=== PATIENT | female | born 1955 | race Two or more races ===

== ENCOUNTER 2017-07-28 11:17 | Emergency (ER) | payer OTHER ==
[~2017-07-28] VITALS: Ht 162.6 cm; Wt 81.6 kg
[2017-07-28 12:04] VITALS: BP 167/59
[2017-07-28] MEDS ORDERED: KETOROLAC TROMETH 60MG/2ML VIAL IM ONE (12:15)
== END 2017-07-28 12:56 | disposition home or self-care (01) ==
LOC: ER 11:17
DX: G89.29 Other chronic pain (principal); M54.5 Low back pain; E11.9 Type 2 diabetes mellitus without complications
CPT/HCPCS: 93005; 96372; 99283; J1885

== ENCOUNTER 2017-07-31 08:49 | Emergency (ER) | payer OTHER ==
[~2017-07-31] VITALS: Ht 162.6 cm; Wt 81.6 kg
[2017-07-31 09:00] VITALS: BP 151/63
[2017-07-31] MEDS ORDERED: KETOROLAC TROMETH 60MG/2ML VIAL IM ONE (09:45)
== END 2017-07-31 10:38 | disposition home or self-care (01) ==
LOC: ER 08:49
DX: M54.41 Lumbago with sciatica, right side (principal); E11.9 Type 2 diabetes mellitus without complications; E78.5 Hyperlipidemia, unspecified
CPT/HCPCS: 96372; 99283; J1885

== ENCOUNTER 2018-04-08 09:00 | Emergency (ER) | payer OTHER ==
[~2018-04-08] VITALS: Ht 162.6 cm; Wt 81.6 kg
[2018-04-08 09:10] VITALS: BP 155/80
== END 2018-04-08 10:40 | disposition home or self-care (01) ==
LOC: ER 09:00
DX: R21 Rash and other nonspecific skin eruption (principal); E11.9 Type 2 diabetes mellitus without complications; E78.5 Hyperlipidemia, unspecified; M54.5 Low back pain; G89.29 Other chronic pain
CPT/HCPCS: 82962; 93005

== ENCOUNTER 2018-05-06 08:32 | Emergency (ER) | payer OTHER ==
[~2018-05-06] VITALS: Ht 162.6 cm; Wt 85.3 kg
[2018-05-06 08:44] VITALS: BP 166/70
[2018-05-06] MEDS ORDERED: KETOROLAC TROMETH 60MG/2ML VIAL IM ONE (10:45)
== END 2018-05-06 10:53 | disposition home or self-care (01) ==
LOC: ER 08:32
DX: M54.31 Sciatica, right side (principal); E11.9 Type 2 diabetes mellitus without complications; E78.5 Hyperlipidemia, unspecified
CPT/HCPCS: 96372; 99283; J1885

== ENCOUNTER 2018-08-31 10:31 | Emergency (ER) | payer OTHER ==
[~2018-08-31] VITALS: Ht 162.6 cm; Wt 86.2 kg
[2018-08-31 11:00] VITALS: BP 152/70
[2018-08-31] MEDS ORDERED: methylPREDNISolone SOD SUCC 125 MG/2 ML VL IM ONE (11:00)
[2018-08-31] MEDS ORDERED: KETOROLAC TROMETH 60MG/2ML VIAL IM ONE (11:00)
== END 2018-08-31 11:40 | disposition home or self-care (01) ==
LOC: ER 10:34
DX: M54.16 Radiculopathy, lumbar region (principal); E11.9 Type 2 diabetes mellitus without complications; E78.5 Hyperlipidemia, unspecified
CPT/HCPCS: 96372; 99283; J1885; J2930

== ENCOUNTER 2018-09-05 08:43 | Inpatient (IN) | payer OTHER | END 2018-09-07 12:15 | disposition home or self-care (01) | LOC: ER 08:43 → TELE 08:44 → TELE-WESTW 15:17 | DX: R07.89 Other chest pain (principal); E11.65 Type 2 diabetes mellitus with hyperglycemia; E78.5 Hyperlipidemia, unspecified; E66.9 Obesity, unspecified ==

== ENCOUNTER 2019-03-08 10:38 | Emergency (ER) | payer OTHER ==
[~2019-03-08] VITALS: Ht 162.6 cm; Wt 86.2 kg
[~2019-03-08 10:38] MED LIST: ASPI81CH4 PO; ATOR20TA PO; CHOL20007 PO; FEXO-42 PO; GABA100C9 PO; GEMF600T PO; IBUP800T24 PO; OMEG100078 PO; OMEP20TA PO; [UNRECOGNIZED DRUG - CODE] PO
[2019-03-08 11:16] LABS: Urine WBC None Seen /hpf (0 - 5)
[2019-03-08 11:29] LABS: Basophils # (auto) 0 uL; Basophils % (auto) 0.9 % (0.0-2.0); Eosinophils # (auto) 0.2 uL; Eosinophils % (auto) 3.6 % (0.0-7.0); Hematocrit 41.1 % (36.0-46.0); Hemoglobin 13.7 g/dL (12.2-16.2); Lymphocytes # (auto) 1.5 uL; Lymphocytes % (auto) 28.1 % (10.0-50.0); Mean Corpuscular Hemoglobin 29.7 pg (28.0-32.0); Mean Corpuscular Hgb Conc. 33.3 g/dL (32.0-36.0); Mean Corpuscular Volume 89.1 fL (80.0-100.0); Monocytes # (auto) 0.4 uL; Monocytes % (auto) 7.9 % (0.0-12.0); Neutrophils # (auto) 3.2 uL; Neutrophils % (auto) 59.5 % (37.0-80.0); Platelet Count (auto) 268 10^3/uL (140-450); Red Blood Cells 4.61 10^6/uL (4.0-5.20); Red Cell Distribution Width 14.3 % (11.8-14.3); White Blood Cell 5.4 10^3/uL (4.4-10.8)
[2019-03-08 11:34] LABS: Urine Bacteria NONE SEEN /hpf (None Seen); Urine Blood TRACE /uL (Negative); Urine Specific Gravity 1.007 (1.001-1.035)
[2019-03-08 11:47] LABS: Albumin 3.7 g/dL (3.4-5.0); Anion Gap 2 (5-15); Blood Urea Nitrogen 13 mg/dL (7-18); Calcium 8.8 mg/dL (8.5-10.1); Carbon Dioxide 31 mmol/L (21-32); Chloride 106 mmol/L (98-107); Glucose 203 mg/dL (74-106); Potassium 4.2 mmol/L (3.5-5.1); Sodium 139 mmol/L (136-145)
[2019-03-08 11:53] LABS: Alanine Aminotransferase 26 U/L (13-56); Alkaline Phosphatase 126 U/L (45-117); Aspartate Aminotransferase 16 U/L (15-37); BUN/Creatinine Ratio 17.6; Bilirubin, Total 0.3 mg/dL (0.2-1.0); GFR African American 103 mL/min; GFR Non-African American 85 mL/min
[2019-03-08] MEDS ORDERED: KETOROLAC TROMETH 60MG/2ML VIAL IM ONE (13:00)
[2019-03-08 15:10] VITALS: BP 165/72
== END 2019-03-08 15:10 | disposition home or self-care (01) ==
LOC: ER 10:38
DX: S39.012A Strain of muscle, fascia and tendon of lower back, initial encounter (principal); E11.9 Type 2 diabetes mellitus without complications; I10 Essential (primary) hypertension; X50.9XXA Other and unspecified overexertion or strenuous movements or postures, initial encounter; Y93.89 Activity, other specified; Y99.8 Other external cause status; Y92.89 Other specified places as the place of occurrence of the external cause
CPT/HCPCS: 36415; 74176; 80053; 81001; 84484; 85025; 93005; 96372; 99284; J1885

== ENCOUNTER 2019-07-17 15:02 | Inpatient (IN) | payer MEDICAID, OTHER ==
[~2019-07-17] VITALS: Ht 162.6 cm; Wt 83.5 kg
[2019-07-17] MEDS ORDERED: ONDANSETRON HCL 4 MG/2 ML VIAL IV ONE (15:30)
[2019-07-17] MEDS ORDERED: MORPHINE SULFATE 4 MG/ML SYR/VIAL IV ONE (15:30)
[2019-07-17] MEDS ORDERED: ASPirin 81 mg TAB PO ONE (15:30)
[2019-07-17 15:40] LABS: Basophils # (auto) 0 10 ^3/uL (0-0.2); Basophils % (auto) 0.5 % (0.0-2.0); Eosinophils # (auto) 0 10 ^3/uL (0-0.8); Eosinophils % (auto) 0.5 % (0.0-7.0); Hematocrit 42.1 % (36.0-46.0); Hemoglobin 13.8 g/dL (12.2-16.2); Lymphocytes # (auto) 1.2 10 ^3/uL (0.4-5.4); Lymphocytes % (auto) 12.5 % (10.0-50.0); Mean Corpuscular Hemoglobin 29.8 pg (28.0-32.0); Mean Corpuscular Hgb Conc. 32.8 g/dL (32.0-36.0); Mean Corpuscular Volume 90.9 fL (80.0-100.0); Monocytes # (auto) 0.7 10 ^3/uL (0-1.3); Monocytes % (auto) 7.5 % (0.0-12.0); Neutrophils # (auto) 7.7 10 ^3/uL (1.6-8.6); Nucleated Red Blood Cells % 0.1 %; Platelet Count (auto) 302 10^3/uL (140-450); Red Blood Cells 4.63 10^6/uL (4.0-5.20); White Blood Cell 9.8 10^3/uL (4.4-10.8)
[2019-07-17 16:00] LABS: Albumin 3.3 g/dL (3.4-5.0); Anion Gap 8 (5-15); Blood Urea Nitrogen 10 mg/dL (7-18); Calcium 7.7 mg/dL (8.5-10.1); Carbon Dioxide 22 mmol/L (21-32); Chloride 110 mmol/L (98-107); Glucose 127 mg/dL (74-106); Magnesium 1.9 mg/dL (1.6-2.6); Potassium 3.5 mmol/L (3.5-5.1); Sodium 140 mmol/L (136-145)
[2019-07-17] MEDS ORDERED: NITROGLYCERIN 0.4 MG SL TAB SL PRN ×2 (16:00)
[2019-07-17] MEDS ORDERED: DEXTROSE (50%) 50ML SYRG IV PRN (16:00)
[2019-07-17] MEDS ORDERED: LORazepam 0.5 MG TAB PO PRN (16:00)
[2019-07-17] MEDS ORDERED: ONDANSETRON HCL 4 MG/2 ML VIAL IV PRN (16:00)
[2019-07-17] MEDS ORDERED: METOPROLOL SUCCINATE XL 50 MG TAB PO ONE (16:00)
[2019-07-17] MEDS ORDERED: MORPHINE SULF INJ 2 MG/ML SYRINGE 1ML IV PRN (16:00)
[2019-07-17] MEDS ORDERED: MORPHINE SULFATE 4 MG/ML SYR/VIAL IV PRN (16:00)
[2019-07-17] MEDS ORDERED: ALUM & MAG HYDROX-SIMETH LIQ(MAALOX) 30 ML PO ONE (16:00)
[2019-07-17 16:04] LABS: Alanine Aminotransferase 25 U/L (13-56); Alkaline Phosphatase 113 U/L (45-117); Aspartate Aminotransferase 13 U/L (15-37); BUN/Creatinine Ratio 11.8; Bilirubin, Total 0.2 mg/dL (0.2-1.0); GFR African American 87 mL/min; GFR Non-African American 72 mL/min; Total Protein 7.4 g/dL (6.4-8.2)
[2019-07-17] MEDS: SOD CHL 0.45% 1,000 ML IV SCH (16:37)
[2019-07-17] MEDS: InsuLIN REG 1unit/0.01ml Soln (100units/ml) SC SCH ×2 (17:00→20:52)
[2019-07-17 17:10] VITALS: BP 124/79
--- NOTE | 2019-07-17 17:10 | NUR ---
Telemetry admit from JAIMEE GAMBOA admitted to Telemetry unit after SBAR received. Patient oriented to RANDY SANFORD RN primary RN, unit, room, bed, and unit policies regarding patient care. Patient now on continuous telemetry monitoring, tele box # [id number] and telemetry reading on arrival to unit is sinus 71. Patient denies pain at this time. Patient is on room air, respirations even and unlabored. Reviewed plan of care with patient, patient verbalized understanding. Bed in low and locked position, call light within reach. Will continue to monitor Q1 hour and PRN.
[2019-07-17 17:31] VITALS: BP 124/79
[2019-07-17] MEDS: metFORMIN HYDROCHLORIDE 500 MG TAB PO SCH (18:00)
[2019-07-17] MEDS ORDERED: VITAMINS A & D (TOPICAL) OINT 5GM TOP ONE (18:00)
[2019-07-17] MEDS ORDERED: hydrALAZINE HCL 20 MG/ML VL IV SCH (18:00)
[2019-07-17] MEDS ORDERED: VITAMINS A & D (TOPICAL) OINT 5GM TOP PRN (18:00)
[2019-07-17] MEDS ORDERED: TRIAMCINOLONE ACET0.5% TOPICAL CRE 15GM TOP ONE (18:00)
[2019-07-17] MEDS ORDERED: hydrALAZINE HCL 20 MG/ML VL IV PRN (18:15)
[2019-07-17] MEDS: ACCU-CHEK COMFORT CURVE STRIP VI SCH ×2 (18:54→22:00)
--- NOTE | 2019-07-17 19:27 | NUR ---
Closing Note Report given to manufacturing supervisor 2nd shift RN. No signs or symptoms of distress noted at this time.
[2019-07-17 20:00] VITALS: BP 149/72
[2019-07-17] MEDS: GABAPENTIN 100 MG CAP PO SCH (20:50)
[2019-07-17] MEDS: GEMFIBROZIL 600 MG TAB PO SCH (20:50)
[2019-07-17] MEDS: RANOLAZINE ER 500 MG TAB PO SCH (20:51)
[2019-07-17] MEDS: ATORVASTATIN 20 MG TAB PO SCH (20:52)
[2019-07-17 22:00] VITALS: BP 128/70
[2019-07-17] MEDS ORDERED: MAGNESIUM OXIDE 400 MG TAB PO ONE (22:00)
[2019-07-18 05:00] VITALS: BP 103/63
[2019-07-18] MEDS: SOD CHL 0.45% 1,000 ML IV SCH ×2 (05:20→18:25)
[2019-07-18 06:04] LABS: Basophils # (auto) 0 10 ^3/uL (0-0.2); Basophils % (auto) 0.4 % (0.0-2.0); Eosinophils # (auto) 0.2 10 ^3/uL (0-0.8); Eosinophils % (auto) 2.8 % (0.0-7.0); Hemoglobin 12.9 g/dL (12.2-16.2); Lymphocytes # (auto) 1.7 10 ^3/uL (0.4-5.4); Lymphocytes % (auto) 28.6 % (10.0-50.0); Mean Corpuscular Hemoglobin 30.3 pg (28.0-32.0); Mean Corpuscular Hgb Conc. 33.2 g/dL (32.0-36.0); Mean Corpuscular Volume 91.2 fL (80.0-100.0); Monocytes # (auto) 0.5 10 ^3/uL (0-1.3); Monocytes % (auto) 8.7 % (0.0-12.0); Neutrophils # (auto) 3.5 10 ^3/uL (1.6-8.6); Neutrophils % (auto) 59.5 % (37.0-80.0); Platelet Count (auto) 283 10^3/uL (140-450); Red Blood Cells 4.28 10^6/uL (4.0-5.20); Red Cell Distribution Width 13.8 % (11.8-14.3); White Blood Cell 5.9 10^3/uL (4.4-10.8)
[2019-07-18 06:19] LABS: Albumin 3.2 g/dL (3.4-5.0); Anion Gap 5 (5-15); Blood Urea Nitrogen 12 mg/dL (7-18); Calcium 8.5 mg/dL (8.5-10.1); Carbon Dioxide 29 mmol/L (21-32); Chloride 105 mmol/L (98-107); Glucose 128 mg/dL (74-106); Magnesium 2.8 mg/dL (1.6-2.6); Potassium 4.4 mmol/L (3.5-5.1); Sodium 139 mmol/L (136-145)
[2019-07-18 06:20] LABS: INR 0.98 (0.9-1.15); Partial Thromboplastin Time 27.6 sec (23.64-32.05)
[2019-07-18] MEDS: InsuLIN REG 1unit/0.01ml Soln (100units/ml) SC SCH ×4 (06:23→21:57)
[2019-07-18] MEDS: GABAPENTIN 100 MG CAP PO SCH ×3 (06:23→21:56)
[2019-07-18 06:25] LABS: Alanine Aminotransferase 24 U/L (13-56); Alkaline Phosphatase 104 U/L (45-117); Aspartate Aminotransferase 15 U/L (15-37); BUN/Creatinine Ratio 13.2; Bilirubin, Total 0.5 mg/dL (0.2-1.0); Cholesterol 188 mg/dL (< 200); GFR African American 81 mL/min; GFR Non-African American 67 mL/min; HDL Cholesterol 41 mg/dL (40-59); LDL Cholesterol 126 mg/dL (< 100); Phosphorus 3.4 mg/dL (2.5-4.90); Total Protein 7.2 g/dL (6.4-8.2); Triglycerides 177 mg/dL (< 150)
--- NOTE | 2019-07-18 06:46 | NUR ---
PT RESTED WELL THROUGHOUT THE NIGHT;NO C/O PAIN.
[2019-07-18] MEDS: ACCU-CHEK COMFORT CURVE STRIP VI SCH ×4 (06:48→21:57)
--- NOTE | 2019-07-18 07:25 | NUR ---
Opening Note Received report from hotel night auditor RN. Patient is awake, alert and oriented x4. No signs or symptoms of distress noted at this time. Patient denies pain at this time. Reviewed plan of care with patient, patient verbalized understanding. Bed in low and locked position, call light within reach. Will continue to monitor Q1 hour and PRN.
[2019-07-18 09:00] VITALS: BP 105/61
[2019-07-18] MEDS: METOPROLOL SUCCINATE XL 50 MG TAB PO SCH (10:00)
[2019-07-18] MEDS: DOCUSATE SOD 100 MG CAP PO SCH (10:00)
[2019-07-18] MEDS: ENOXAPARIN SOD 40 MG/0.4 ML SYRINGE SC SCH (10:00)
[2019-07-18] MEDS: LISINOPRIL 10 MG TAB PO SCH (10:00)
[2019-07-18] MEDS: TRIAMCINOLONE ACET0.5% TOPICAL CRE 15GM TOP SCH (10:07)
[2019-07-18] MEDS: RANOLAZINE ER 500 MG TAB PO SCH ×2 (10:22→21:57)
[2019-07-18] MEDS: GEMFIBROZIL 600 MG TAB PO SCH ×2 (10:22→21:56)
[2019-07-18] MEDS: PANTOPRAZOLE 40 MG TAB PO SCH (10:22)
[2019-07-18] MEDS: CHOLECALCIFEROL (VITD3) 1,000IU=25mCg TAB PO SCH (10:23)
[2019-07-18] MEDS: ASPirin 81 mg TAB PO SCH (10:23)
[2019-07-18] MEDS: metFORMIN HYDROCHLORIDE 500 MG TAB PO SCH ×2 (10:23→18:22)
--- NOTE | 2019-07-18 12:05 | NUR ---
Dr. Brandt at bedside No new orders received. Will continue to monitor Q1 hour and PRN.
[2019-07-18 13:00] VITALS: BP 104/58
[2019-07-18 17:00] VITALS: BP 103/57
--- NOTE | 2019-07-18 19:10 | NUR ---
Closing Note Report given to night auditor RN. No signs or symptoms of distress noted at this time.
[2019-07-18] MEDS: ATORVASTATIN 20 MG TAB PO SCH (21:56)
[2019-07-18 22:00] VITALS: BP 117/76
[2019-07-19 05:00] VITALS: BP 106/66
[2019-07-19 05:39] LABS: Calcium 8.9 mg/dL (8.5-10.1); Potassium 4.1 mmol/L (3.5-5.1)
[2019-07-19 05:40] LABS: BUN/Creatinine Ratio 19.8
[2019-07-19] MEDS: GABAPENTIN 100 MG CAP PO SCH ×3 (06:29→21:47)
[2019-07-19] MEDS: InsuLIN REG 1unit/0.01ml Soln (100units/ml) SC SCH ×4 (06:29→21:47)
[2019-07-19] MEDS: ACCU-CHEK COMFORT CURVE STRIP VI SCH ×4 (06:29→21:47)
[2019-07-19] MEDS: SOD CHL 0.45% 1,000 ML IV SCH ×2 (08:00→21:08)
[2019-07-19] MEDS: metFORMIN HYDROCHLORIDE 500 MG TAB PO SCH ×2 (08:01→18:16)
[2019-07-19 09:33] VITALS: BP 97/57
[2019-07-19] MEDS: PANTOPRAZOLE 40 MG TAB PO SCH (09:49)
[2019-07-19] MEDS: GEMFIBROZIL 600 MG TAB PO SCH ×2 (09:49→21:47)
[2019-07-19] MEDS: DOCUSATE SOD 100 MG CAP PO SCH (09:49)
[2019-07-19] MEDS: CHOLECALCIFEROL (VITD3) 1,000IU=25mCg TAB PO SCH (09:49)
[2019-07-19] MEDS: ASPirin 81 mg TAB PO SCH (09:49)
[2019-07-19] MEDS: ENOXAPARIN SOD 40 MG/0.4 ML SYRINGE SC SCH (09:50)
[2019-07-19] MEDS: TRIAMCINOLONE ACET0.5% TOPICAL CRE 15GM TOP SCH (09:54)
[2019-07-19] MEDS: RANOLAZINE ER 500 MG TAB PO SCH ×2 (09:54→21:47)
[2019-07-19] MEDS: LISINOPRIL 10 MG TAB PO SCH (10:00)
[2019-07-19] MEDS: METOPROLOL SUCCINATE XL 50 MG TAB PO SCH (10:00)
--- NOTE | 2019-07-19 11:40 | NUR ---
Dr. Apryl Brandt in to see patient as primary MD. Dr. Syed to evaluate patient for cardiology today.
--- NOTE | 2019-07-19 12:58 | NUR ---
Page placed to Dr. Syed, roadway technician, to see if patient has been cleared for discharge.
[2019-07-19 13:00] VITALS: BP 147/77
--- NOTE | 2019-07-19 13:01 | NUR ---
Return call from Dr. Syed. Dr. Syed states the patient is not cleared for discharge. Patient is aware. Jaime, charge nurse informed. Will continue to monitor.
--- NOTE | 2019-07-19 16:20 | NUR ---
Dr. Apryl Brandt informed that Dr. white wants to do a test on patient on Sunday. Discharge cancelled.
[2019-07-19 17:25] VITALS: BP 102/57
--- NOTE | 2019-07-19 19:20 | NUR ---
Opening Shift Note Assumed care of patient, awake and alert. No S/S of distress/SOB or pain. Instructed on POC and to call for assist PRN. Bed in lowest locked position, call light within reach, side rails up x2, fall precautions in place. Will continue to monitor for changes Q1hr and PRN.
[2019-07-19] MEDS: ATORVASTATIN 20 MG TAB PO SCH (21:47)
[2019-07-19 22:00] VITALS: BP 125/63
[2019-07-20 05:44] VITALS: BP 113/64
[2019-07-20] MEDS: GABAPENTIN 100 MG CAP PO SCH ×3 (06:27→22:00)
[2019-07-20] MEDS: InsuLIN REG 1unit/0.01ml Soln (100units/ml) SC SCH ×4 (06:27→22:00)
[2019-07-20] MEDS: ACCU-CHEK COMFORT CURVE STRIP VI SCH ×4 (06:27→22:01)
[2019-07-20] MEDS: metFORMIN HYDROCHLORIDE 500 MG TAB PO SCH ×2 (07:53→18:00)
[2019-07-20 09:00] VITALS: BP 117/63
[2019-07-20] MEDS: METOPROLOL SUCCINATE XL 50 MG TAB PO SCH (10:00)
[2019-07-20] MEDS: DOCUSATE SOD 100 MG CAP PO SCH (10:17)
[2019-07-20] MEDS: GEMFIBROZIL 600 MG TAB PO SCH ×2 (10:17→22:00)
[2019-07-20] MEDS: ENOXAPARIN SOD 40 MG/0.4 ML SYRINGE SC SCH (10:17)
[2019-07-20] MEDS: CHOLECALCIFEROL (VITD3) 1,000IU=25mCg TAB PO SCH (10:17)
[2019-07-20] MEDS: PANTOPRAZOLE 40 MG TAB PO SCH (10:17)
[2019-07-20] MEDS: ASPirin 81 mg TAB PO SCH (10:17)
[2019-07-20] MEDS: LISINOPRIL 10 MG TAB PO SCH (10:18)
[2019-07-20] MEDS: RANOLAZINE ER 500 MG TAB PO SCH ×2 (10:21→22:00)
[2019-07-20] MEDS: TRIAMCINOLONE ACET0.5% TOPICAL CRE 15GM TOP SCH (10:21)
[2019-07-20] MEDS: SOD CHL 0.45% 1,000 ML IV SCH (10:40)
[2019-07-20 13:00] VITALS: BP 112/63
[2019-07-20 17:00] VITALS: BP 84/54
[2019-07-20 21:57] VITALS: BP 106/55
[2019-07-20] MEDS: ATORVASTATIN 20 MG TAB PO SCH (22:00)
--- NOTE | 2019-07-20 22:45 | NUR ---
Applied A&D ointment Applied ointment to entire back, abdomen, and both legs. Patient tolerated well.
--- NOTE | 2019-07-20 23:00 | NUR ---
IV insertion Inserted IV to right FA, 22 g, second attempt. Patient tolerated well.
[2019-07-21] VITALS (7 sets, daily range): BP systolic 96–127; BP diastolic 58–73
[2019-07-21] MEDS: SOD CHL 0.45% 1,000 ML IV SCH ×3 (03:38→13:20)
[2019-07-21] MEDS: GABAPENTIN 100 MG CAP PO SCH ×2 (06:00→15:55)
[2019-07-21] MEDS: ACCU-CHEK COMFORT CURVE STRIP VI SCH ×2 (06:12→11:30)
[2019-07-21] MEDS: InsuLIN REG 1unit/0.01ml Soln (100units/ml) SC SCH ×2 (06:12→11:30)
[2019-07-21] MEDS: metFORMIN HYDROCHLORIDE 500 MG TAB PO SCH (08:00)
[2019-07-21] MEDS ORDERED: ADENOSINE 70 MG in GIVE UN-DILUTED 0 ML IV STA (08:40)
--- NOTE | 2019-07-21 09:00 | NUR ---
RECEIVED A CALL FROM DR CHRISTIAN. PATIENT TO HAVE STRESS DONE TODAY, IF STRESS TEST IS NEGATIVE PATIENT IS OKAY TO BE DISCHARGED.
--- NOTE | 2019-07-21 09:10 | NUR ---
BP MEDICATIONS HELD SPOKE TO DR AHUMADA ABOUT BP MEDICATIONS. ZESTRIL AND TOPROL XL TO BE HELD AT THIS TIME DUE TO PATIENTS DECREASED BP AND HR.
[2019-07-21] MEDS: LISINOPRIL 10 MG TAB PO SCH (09:28)
[2019-07-21] MEDS: METOPROLOL SUCCINATE XL 50 MG TAB PO SCH (09:28)
[2019-07-21] MEDS: DOCUSATE SOD 100 MG CAP PO SCH (09:29)
[2019-07-21] MEDS: CHOLECALCIFEROL (VITD3) 1,000IU=25mCg TAB PO SCH (09:29)
[2019-07-21] MEDS: PANTOPRAZOLE 40 MG TAB PO SCH (09:29)
[2019-07-21] MEDS: RANOLAZINE ER 500 MG TAB PO SCH (09:29)
[2019-07-21] MEDS: ASPirin 81 mg TAB PO SCH (09:30)
[2019-07-21] MEDS: GEMFIBROZIL 600 MG TAB PO SCH (09:30)
--- NOTE | 2019-07-21 09:31 | NUR ---
Opening Shift Note Assumed care of patient, awake and alert. No S/S of distress/SOB or pain. Instructed on POC and to call for assist PRN, will continue to monitor for changes Q1hr and PRN. Bed locked in lowest position with two side rails up and call light in reach.
[2019-07-21] MEDS: ENOXAPARIN SOD 40 MG/0.4 ML SYRINGE SC SCH (10:00)
[2019-07-21] MEDS: TRIAMCINOLONE ACET0.5% TOPICAL CRE 15GM TOP SCH (11:18)
--- NOTE | 2019-07-21 12:44 | NUR ---
Nutrition Assessment Notes please see attached link for complete assessment [employer] needs ABW 68 [id number] kcals (23-25 kcal/kgBW), Est Protein needs: 68-1.1 gms/day (1.0-1.1 gm/kgAdjBW). Will continue to monitor and reassess prn. Addendum: 07/21/19 at [address] Amended: Links added.
--- NOTE | 2019-07-21 16:35 | NUR ---
PER DR AHUMADA PATIENT IS CLEARED TO GO HOME. STRESS TEST NEGATIVE.
--- NOTE | 2019-07-21 17:24 | NUR ---
Discharge instructions given as ordered. Encourage to follow up with PMD as instructed. All questions and concerns addressed. Patient verbalized understanding. Medication reconciliation form completed and copy given to patient. No Home medications held in Pharmacy and none returned to patient, and no needed vaccines given. IV removed with catheter intact, pressure dressing applied, reaves catheter removed. Telemetry unit returned to ICU.
--- NOTE | 2019-07-21 17:50 | NUR ---
PATIENT TAKEN DOWN TO VEHICLE WITH ALL PERSONAL BELONGINGS VIA WHEEL CHAIR. NO SIGNS AND SYMPTOMS OF DISTRESS NOTED.
[2019-07-22] MEDS ORDERED: METOPROLOL SUCCINATE XL 50 MG TAB PO SCH (10:00)
== END 2019-07-21 17:50 | disposition home or self-care (01) | DRG 190 ==
LOC: ER 15:02 → TELE 15:03 → TELE-WESTW 17:16
PROVIDERS: ADMIT Hospitalist; ATTEND Internal Medicine
DX: I21.9 Acute myocardial infarction, unspecified (principal); E11.51 Type 2 diabetes mellitus with diabetic peripheral angiopathy without gangrene; I42.9 Cardiomyopathy, unspecified; E44.0 Moderate protein-calorie malnutrition; I25.10 Atherosclerotic heart disease of native coronary artery without angina pectoris; I16.0 Hypertensive urgency; E66.9 Obesity, unspecified; K21.9 Gastro-esophageal reflux disease without esophagitis; K29.70 Gastritis, unspecified, without bleeding; L20.9 Atopic dermatitis, unspecified; I10 Essential (primary) hypertension; G89.29 Other chronic pain; F41.9 Anxiety disorder, unspecified; E78.5 Hyperlipidemia, unspecified; Z79.84 Long term (current) use of oral hypoglycemic drugs; Z79.899 Other long term (current) drug therapy; Z82.49 Family history of ischemic heart disease and other diseases of the circulatory system; Z83.3 Family history of diabetes mellitus; Z68.32 Body mass index [BMI] 32.0-32.9, adult
CPT/HCPCS: 36415; 71045; 78452; 80048; 80053; 80061; 82728; 82962; 83036; 83735; 83880; 84100; 84484; 85025; 85610; 85730; 93005; 93017; 93306; G0378; J0153; J1815; J2405

== ENCOUNTER 2019-10-06 09:14 | Emergency (ER) | payer MEDICAID ==
[~2019-10-06] VITALS: Ht 162.6 cm; Wt 81.6 kg
[~2019-10-06 09:14] MED LIST changes: -ASPI81CH4 PO; +ASPI81CH74 PO
[2019-10-06] MEDS ORDERED: KETOROLAC TROMETH 60MG/2ML VIAL IM ONE (10:45)
[2019-10-06 11:02] VITALS: BP 119/89
== END 2019-10-06 11:02 | disposition home or self-care (01) ==
LOC: ER 09:14
DX: M54.16 Radiculopathy, lumbar region (principal)
CPT/HCPCS: 96372; 99283; J1885

== ENCOUNTER 2020-05-18 03:06 | Emergency (ER) | payer MEDICAID ==
[~2020-05-18] VITALS: Ht 162.6 cm; Wt 81.6 kg
[~2020-05-18 03:06] MED LIST changes: -IBUP800T24 PO; +IBUP800T27 PO; +METF750T54 PO; -[UNRECOGNIZED DRUG - CODE] PO
[2020-05-18 03:50] LABS: Basophils # (auto) 0.1 10 ^3/uL (0-0.2); Basophils % (auto) 1.6 % (0.0-2.0); Eosinophils # (auto) 0.1 10 ^3/uL (0-0.8); Eosinophils % (auto) 1.8 % (0.0-7.0); Hematocrit 39.7 % (36.0-46.0); Hemoglobin 13.5 g/dL (12.2-16.2); Lymphocytes # (auto) 1.6 10 ^3/uL (0.4-5.4); Mean Corpuscular Hgb Conc. 33.9 g/dL (32.0-36.0); Mean Corpuscular Volume 88.4 fL (80.0-100.0); Monocytes # (auto) 0.5 10 ^3/uL (0-1.3); Monocytes % (auto) 7.1 % (0.0-12.0); Neutrophils # (auto) 4.7 10 ^3/uL (1.6-8.6); Neutrophils % (auto) 66.5 % (37.0-80.0); Nucleated Red Blood Cells % 0.1 %
[2020-05-18 04:06] LABS: Albumin 3.5 g/dL (3.4-5.0); Anion Gap 7 (5-15); Blood Urea Nitrogen 9 mg/dL (7-18); Calcium 9.3 mg/dL (8.5-10.1); Carbon Dioxide 28 mmol/L (21-32); Chloride 105 mmol/L (98-107); Glucose 155 mg/dL (74-106); Potassium 4.6 mmol/L (3.5-5.1); Sodium 140 mmol/L (136-145)
[2020-05-18 04:11] LABS: Alanine Aminotransferase 35 U/L (13-56); Alkaline Phosphatase 122 U/L (45-117); Aspartate Aminotransferase 15 U/L (15-37); BUN/Creatinine Ratio 12.5; Bilirubin, Total 0.3 mg/dL (0.2-1.0); GFR African American 106 mL/min; GFR Non-African American 87 mL/min; Total Protein 7.9 g/dL (6.4-8.2)
[2020-05-18 04:27] LABS: INR 0.97 (0.9-1.15); Partial Thromboplastin Time 25.1 sec (23.0-31.2)
[2020-05-18] MEDS ORDERED: ASPirin 81 mg TAB PO ONE (05:00)
[2020-05-18 09:24] VITALS: BP 130/72
== END 2020-05-18 11:14 | disposition home or self-care (01) ==
LOC: ER 03:08
DX: R07.89 Other chest pain (principal); E11.9 Type 2 diabetes mellitus without complications; I10 Essential (primary) hypertension; E78.5 Hyperlipidemia, unspecified; Z79.82 Long term (current) use of aspirin; Z79.899 Other long term (current) drug therapy
CPT/HCPCS: 36415; 71045; 80053; 82962; 83880; 84484; 85025; 85610; 85730; 93005

== ENCOUNTER 2020-05-31 09:44 | Emergency (ER) | payer MEDICAID ==
[~2020-05-31] VITALS: Ht 162.6 cm; Wt 81.6 kg
[2020-05-31 09:48] VITALS: BP 175/68
[2020-05-31] MEDS ORDERED: KETOROLAC TROMETH 60MG/2ML VIAL IM ONE (11:00)
[2020-05-31] MEDS ORDERED: METHOCARBAMOL 500 MG TAB PO ONE (11:00)
== END 2020-05-31 12:00 | disposition home or self-care (01) ==
LOC: ER 09:44
DX: M54.16 Radiculopathy, lumbar region (principal); E11.9 Type 2 diabetes mellitus without complications; E78.5 Hyperlipidemia, unspecified; I10 Essential (primary) hypertension; W01.0XXA Fall on same level from slipping, tripping and stumbling without subsequent striking against object, initial encounter; Y93.89 Activity, other specified; Y92.89 Other specified places as the place of occurrence of the external cause; Y99.8 Other external cause status
CPT/HCPCS: 72100; 96372; 99283; J1885

== ENCOUNTER 2020-06-15 07:13 | Emergency (ER) | payer MEDICAID ==
[~2020-06-15] VITALS: Ht 162.6 cm; Wt 81.6 kg
[2020-06-15 07:14] VITALS: BP 156/76
[2020-06-15] MEDS ORDERED: KETOROLAC TROMETH 60MG/2ML VIAL IM ONE (08:15)
== END 2020-06-15 08:46 | disposition home or self-care (01) ==
LOC: ER 07:13
DX: M54.41 Lumbago with sciatica, right side (principal); E11.9 Type 2 diabetes mellitus without complications; I10 Essential (primary) hypertension; E78.5 Hyperlipidemia, unspecified; Z79.899 Other long term (current) drug therapy; Z79.82 Long term (current) use of aspirin
CPT/HCPCS: 96372; 99283; J1885

== ENCOUNTER 2020-08-10 01:38 | Emergency (ER) | payer MEDICAID ==
[~2020-08-10] VITALS: Ht 162.6 cm; Wt 81.6 kg
[2020-08-10 02:21] LABS: Basophils # (auto) 0 10 ^3/uL (0-0.2); Basophils % (auto) 0.4 % (0.0-2.0); Eosinophils # (auto) 0.1 10 ^3/uL (0-0.8); Eosinophils % (auto) 1.6 % (0.0-7.0); Hematocrit 40.6 % (36.0-46.0); Hemoglobin 13.4 g/dL (12.2-16.2); Lymphocytes # (auto) 2.3 10 ^3/uL (0.4-5.4); Lymphocytes % (auto) 26.1 % (10.0-50.0); Mean Corpuscular Hemoglobin 29.3 pg (28.0-32.0); Monocytes # (auto) 0.8 10 ^3/uL (0-1.3); Monocytes % (auto) 8.5 % (0.0-12.0); Neutrophils # (auto) 5.7 10 ^3/uL (1.6-8.6); Neutrophils % (auto) 63.4 % (37.0-80.0); Platelet Count (auto) 289 10^3/uL (140-450); Red Blood Cells 4.57 10^6/uL (4.0-5.20); Red Cell Distribution Width 14.3 % (11.8-14.3); White Blood Cell 8.9 10^3/uL (4.4-10.8)
[2020-08-10 02:39] LABS: Alanine Aminotransferase 34 U/L (13-56); Albumin 3.7 g/dL (3.4-5.0); Anion Gap 5 (5-15); Aspartate Aminotransferase 23 U/L (15-37); BUN/Creatinine Ratio 9.7; Blood Urea Nitrogen 7 mg/dL (7-18); Calcium 8.8 mg/dL (8.5-10.1); Carbon Dioxide 29 mmol/L (21-32); Chloride 106 mmol/L (98-107); GFR African American 106 mL/min; GFR Non-African American 87 mL/min; Glucose 118 mg/dL (74-106); Sodium 140 mmol/L (136-145)
[2020-08-10 02:40] LABS: INR 0.97 (0.9-1.15); Partial Thromboplastin Time 25.2 sec (23.0-31.2)
[2020-08-10 02:44] LABS: Alkaline Phosphatase 122 U/L (45-117); Bilirubin, Total 0.4 mg/dL (0.2-1.0); Total Protein 7.8 g/dL (6.4-8.2)
[2020-08-10 09:49] LABS: Urine Bacteria MANY /hpf (None Seen); Urine Blood 3+ /uL (Negative); Urine Specific Gravity 1.017 (1.001-1.035); Urine WBC 1726 /hpf (0 - 5); Urine WBC Clumps PRESENT /hpf (None Seen)
[2020-08-10 10:00] VITALS: BP 124/68
[2020-08-10] MEDS ORDERED: cefTRIAXone 1GM/50ML D5W 50 ML IV ONE (10:30)
== END 2020-08-10 11:37 | disposition home or self-care (01) ==
LOC: ER 01:38
DX: R07.89 Other chest pain (principal)
CPT/HCPCS: 36415; 71045; 80053; 81001; 83880; 84484; 85025; 85610; 85730; 93005; 96365; 99285; J0696

== ENCOUNTER 2021-10-25 05:14 | Emergency (ER) | payer MEDICAID ==
[~2021-10-25] VITALS: Ht 162.6 cm; Wt 82.0 kg
[2021-10-25 06:44] LABS: Basophils # (auto) 0 10 ^3/uL (0-0.2); Basophils % (auto) 0.8 % (0.0-2.0); Eosinophils # (auto) 0.2 10 ^3/uL (0-0.8); Eosinophils % (auto) 3.4 % (0.0-7.0); Hematocrit 40.7 % (36.0-46.0); Hemoglobin 13.4 g/dL (12.2-16.2); Lymphocytes # (auto) 1.9 10 ^3/uL (0.4-5.4); Lymphocytes % (auto) 31.4 % (10.0-50.0); Mean Corpuscular Hemoglobin 29.9 pg (28.0-32.0); Mean Corpuscular Hgb Conc. 32.9 g/dL (32.0-36.0); Mean Corpuscular Volume 90.9 fL (80.0-100.0); Monocytes # (auto) 0.5 10 ^3/uL (0-1.3); Monocytes % (auto) 7.6 % (0.0-12.0); Neutrophils # (auto) 3.5 10 ^3/uL (1.6-8.6); Neutrophils % (auto) 56.8 % (37.0-80.0); Nucleated Red Blood Cells % 0.1 %; Red Blood Cells 4.48 10^6/uL (4.0-5.20); Red Cell Distribution Width 14.2 % (11.8-14.3); White Blood Cell 6.1 10^3/uL (4.4-10.8)
[2021-10-25 06:59] LABS: INR 0.89 (0.9-1.15); Partial Thromboplastin Time 26.6 sec (24.6-33.4)
[2021-10-25 07:03] LABS: Potassium 4.1 mmol/L (3.5-5.1)
[2021-10-25 07:11] LABS: Albumin 3.5 g/dL (3.4-5.0); BUN/Creatinine Ratio 13.2; Bilirubin, Total 0.2 mg/dL (0.2-1.0); Calcium 8.7 mg/dL (8.5-10.1); Magnesium 2.2 mg/dL (1.6-2.6); Total Protein 7.6 g/dL (6.4-8.2)
[2021-10-25] MEDS ORDERED: IBU600T PO (08:23)
[2021-10-25 12:26] VITALS: BP 139/48
== END 2021-10-25 12:29 | disposition home or self-care (01) ==
LOC: ER 05:14
DX: R07.89 Other chest pain (principal); E11.65 Type 2 diabetes mellitus with hyperglycemia; E78.5 Hyperlipidemia, unspecified; Z79.82 Long term (current) use of aspirin; Z79.899 Other long term (current) drug therapy; Z79.1 Long term (current) use of non-steroidal anti-inflammatories (NSAID)
CPT/HCPCS: 36415; 71046; 80053; 82962; 83735; 83880; 84443; 84484; 85025; 85610; 85730; 93005

== ENCOUNTER 2022-12-14 05:29 | Emergency (ER) | payer MEDICAID ==
[~2022-12-14] VITALS: Ht 162.6 cm; Wt 80.5 kg
[~2022-12-14 05:29] MED LIST changes: +GABA-1308 PO; -GABA100C9 PO; +IBU600T PO; +IBUP-1456 PO; -IBUP800T27 PO; +OMEG-20 PO; -OMEG100078 PO
[2022-12-14 05:58] VITALS: PULSE 74; RESP 18; O2SAT 96
[2022-12-14 06:01] LABS: Basophils # (auto) 0 10 ^3/uL (0-0.2); Basophils % (auto) 0.6 % (0.0-2.0); Eosinophils # (auto) 0.1 10 ^3/uL (0-0.8); Hematocrit 41.1 % (36.0-46.0); Hemoglobin 13.8 g/dL (12.2-16.2); Lymphocytes # (auto) 1.6 10 ^3/uL (0.4-5.4); Lymphocytes % (auto) 23.6 % (10.0-50.0); Mean Corpuscular Hemoglobin 29.7 pg (28.0-32.0); Mean Corpuscular Hgb Conc. 33.7 g/dL (32.0-36.0); Mean Corpuscular Volume 88.3 fL (80.0-100.0); Monocytes # (auto) 0.7 10 ^3/uL (0-1.3); Monocytes % (auto) 11.1 % (0.0-12.0); Neutrophils # (auto) 4.2 10 ^3/uL (1.6-8.6); Neutrophils % (auto) 62.7 % (37.0-80.0); Nucleated Red Blood Cells % 0.1 %; Red Blood Cells 4.65 10^6/uL (4.0-5.20); Red Cell Distribution Width 14.3 % (11.8-14.3); White Blood Cell 6.7 10^3/uL (4.4-10.8)
[2022-12-14 06:09] LABS: Urine Bacteria NONE SEEN /hpf (None Seen); Urine Blood Negative /uL (Negative); Urine Clarity Clear (Clear); Urine Protein, UAD Negative (Negative); Urine Urobilinogen Normal (Negative); Urine WBC <1 /hpf (0 - 5)
[2022-12-14] MEDS ORDERED: KETOROLAC TROMETH 30 MG/ML 1ML VIAL IV ONE (06:30)
[2022-12-14] MEDS ORDERED: DICYCLOMINE HCL (10MG/ML) 2 ML AMPULE IM ONE (06:30)
[2022-12-14 06:32] LABS: Alanine Aminotransferase 23 U/L (7-40); Alkaline Phosphatase 117 U/L (46-116); Anion Gap 5 (5-15); Aspartate Aminotransferase 16 U/L (13-40); BUN/Creatinine Ratio 8.9 (10.0-20.0); Blood Urea Nitrogen 7 mg/dL (9-23); Calcium 9.3 mg/dL (8.7-10.4); Carbon Dioxide 28 mmol/L (20-30); Chloride 105 mmol/L (98-107); Glucose 150 mg/dL (74-106); Lipase 48 U/L (12-53); Potassium 4.1 mmol/L (3.5-5.1); Sodium 138 mmol/L (136-145)
[2022-12-14 06:33] LABS: Albumin 4.4 g/dL (3.2-4.8); Bilirubin, Total 0.4 mg/dL (0.2-1.0); Total Protein 7.4 g/dL (5.7-8.2)
[2022-12-14 06:37] LABS: Urine Color Yellow (Yellow)
[2022-12-14 07:12] LABS: INR 0.99 (0.9-1.15); Prothrombin Time 10.4 sec (9.3-11.8)
[2022-12-14 07:35] VITALS: PULSE 69; RESP 10; TEMP 98; O2SAT 99
[2022-12-14] MEDS ORDERED: DICY10CA PO (08:49)
[2022-12-14] MEDS ORDERED: ZOFR4T PO ×3 (08:49→08:51)
[2022-12-14 09:00] VITALS: BP 129/67; PULSE 61; RESP 13; O2SAT 97
== END 2022-12-14 09:11 | disposition home or self-care (01) ==
LOC: ER 05:29
DX: R10.13 Epigastric pain (principal); R10.11 Right upper quadrant pain; I10 Essential (primary) hypertension; E11.9 Type 2 diabetes mellitus without complications; E78.5 Hyperlipidemia, unspecified; Z79.1 Long term (current) use of non-steroidal anti-inflammatories (NSAID); Z79.82 Long term (current) use of aspirin; Z79.899 Other long term (current) drug therapy
CPT/HCPCS: 36415; 71045; 76705; 80053; 81001; 83690; 83735; 84484; 85025; 85610; 93005; 96372; 96374; 99285; J0500; J1885

== ENCOUNTER 2022-12-21 03:19 | Inpatient (IN) | payer MEDICAID ==
[~2022-12-21] VITALS: Ht 162.6 cm; Wt 98.1 kg
[~2022-12-21 03:19] MED LIST changes: +DICY10CA PO; +ZOFR4T PO
[2022-12-21] MEDS ORDERED: KETOROLAC TROMETH 30 MG/ML 1ML VIAL IV ONE (15:00)
[2022-12-21] MEDS ORDERED: SODIUM CHLORIDE 0.9% 1,000 ML IV ONE ×2 (15:00)
[2022-12-21] MEDS ORDERED: TAMSULOSIN HYDROCHLORIDE 0.4 MG CAP PO ONE ×2 (15:15→19:15)
[2022-12-21] MEDS ORDERED: PANTOPRAZOLE 40 MG TAB PO ONE (15:15)
[2022-12-21 15:26] LABS: Basophils # (auto) 0 10 ^3/uL (0-0.2); Basophils % (auto) 0.6 % (0.0-2.0); Eosinophils # (auto) 0.1 10 ^3/uL (0-0.8); Eosinophils % (auto) 1.1 % (0.0-7.0); Hematocrit 40.5 % (36.0-46.0); Hemoglobin 13.8 g/dL (12.2-16.2); Lymphocytes # (auto) 1.6 10 ^3/uL (0.4-5.4); Mean Corpuscular Hemoglobin 30.2 pg (28.0-32.0); Mean Corpuscular Volume 88.6 fL (80.0-100.0); Monocytes # (auto) 0.8 10 ^3/uL (0-1.3); Monocytes % (auto) 10.3 % (0.0-12.0); Neutrophils # (auto) 5.2 10 ^3/uL (1.6-8.6); Nucleated Red Blood Cells % 0.1 %; Red Blood Cells 4.58 10^6/uL (4.0-5.20); White Blood Cell 7.8 10^3/uL (4.4-10.8)
[2022-12-21 16:01] LABS: Alanine Aminotransferase 24 U/L (7-40); Albumin 4.5 g/dL (3.2-4.8); Alkaline Phosphatase 109 U/L (46-116); Anion Gap 6 (5-15); Aspartate Aminotransferase 15 U/L (13-40); Bilirubin, Total 0.5 mg/dL (0.2-1.0); Blood Urea Nitrogen 13 mg/dL (9-23); Calcium 9.9 mg/dL (8.5-10.1); Carbon Dioxide 30 mmol/L (20-30); Chloride 100 mmol/L (98-107); Glucose 118 mg/dL (74-106); Potassium 4.8 mmol/L (3.5-5.1); Sodium 136 mmol/L (136-145); Total Protein 7.3 g/dL (5.7-8.2)
[2022-12-21] MEDS ORDERED: NITROGLYCERIN 0.4 MG SL TAB SL PRN (19:15)
[2022-12-21] MEDS ORDERED: TEMAZEPAM 15 MG CAP PO PRN (19:15)
[2022-12-21] MEDS ORDERED: KETOROLAC TROMETH 30 MG/ML 1ML VIAL IV PRN (19:15)
[2022-12-21] MEDS ORDERED: ACETAMINOPHEN 325 MG TAB PO PRN (19:15)
[2022-12-21] MEDS ORDERED: DEXTROSE (50%) 50ML SYRG IV PRN (20:45)
[2022-12-21] MEDS: SODIUM CHLORIDE 0.9% 1,000 ML IV SCH (21:37)
[2022-12-21] MEDS: InsuLIN REG 1unit/0.01ml Soln (100units/ml) SC SCH (22:00)
[2022-12-21] MEDS: GABAPENTIN 100 MG CAP PO SCH (22:00)
[2022-12-21] MEDS: ACCU-CHEK COMFORT CURVE STRIP VI SCH (22:00)
[2022-12-22] VITALS (11 sets, daily range): BP systolic 102–148; BP diastolic 60–88; PULSE 67–88; RESP 11–22; TEMP 97.6–98.1; O2SAT 96–99
[2022-12-22] MEDS ORDERED: KETOROLAC TROMETH 60MG/2ML VIAL IM ONE (01:30)
[2022-12-22] MEDS: SODIUM CHLORIDE 0.9% 1,000 ML IV SCH ×3 (01:35→20:15)
[2022-12-22] MEDS: ACCU-CHEK COMFORT CURVE STRIP VI SCH ×4 (06:33→22:07)
[2022-12-22] MEDS: InsuLIN REG 1unit/0.01ml Soln (100units/ml) SC SCH ×4 (06:53→22:00)
[2022-12-22] MEDS: GABAPENTIN 100 MG CAP PO SCH ×3 (06:53→22:07)
[2022-12-22] MEDS: MORPHINE SULFATE INJ 2 MG/ml SYRG IV PRN ×3 (06:54→22:55)
[2022-12-22 08:12] LABS: Urine Bacteria FEW /hpf (None Seen); Urine Blood Negative /uL (Negative); Urine Clarity HAZY (Clear); Urine Color Colorless (Yellow); Urine Protein, UAD Negative (Negative); Urine Urobilinogen Normal (Negative); Urine WBC 10 /hpf (0 - 5)
[2022-12-22] MEDS: cefTRIAXone 1GM/50ML D5W 50 ML IV SCH (09:21)
[2022-12-22] MEDS ORDERED: ATORVASTATIN 20 MG TAB PO SCH (10:00)
[2022-12-22] MEDS ORDERED: ENOXAPARIN SOD 40 MG/0.4 ML SYRINGE SC SCH (10:00)
[2022-12-22 11:37] LABS: Partial Thromboplastin Time 27.8 SEC (24.5-34.5); Prothrombin Time 10.5 sec (9.3-11.8)
[2022-12-22] MEDS ORDERED: IODIXANOL 320MG/ML 100ML BTL IV ONE (12:05)
[2022-12-22] MEDS ORDERED: LIDOCAINE 2%HCL (LOCAL ANESTH.) INJ 20ML MDV ONE (12:05)
[2022-12-22] MEDS ORDERED: fentaNYL CITRATE 100 MCG/2 ML VL ONE (12:08)
[2022-12-22] MEDS ORDERED: MIDAZOLAM HCL 2MG/2ML 2ml VIAL (1mg/ml) ONE (12:09)
[2022-12-22] MEDS ORDERED: cefTRIAXone 1GM/50ML D5W 50 ML IV ONE (12:42)
[2022-12-22] MEDS: KETOROLAC TROMETH 60MG/2ML VIAL IV PRN (16:19)
[2022-12-22] MEDS: ATORVASTATIN 20 MG TAB PO SCH (22:07)
[2022-12-23 05:00] VITALS: BP 135/78; PULSE 76; RESP 17; TEMP 98; O2SAT 98
[2022-12-23] MEDS: SODIUM CHLORIDE 0.9% 1,000 ML IV SCH ×3 (05:01→21:15)
[2022-12-23] MEDS: GABAPENTIN 100 MG CAP PO SCH ×3 (05:01→22:08)
[2022-12-23] MEDS: KETOROLAC TROMETH 60MG/2ML VIAL IV PRN (05:01)
[2022-12-23] MEDS: ACCU-CHEK COMFORT CURVE STRIP VI SCH ×4 (06:01→22:07)
[2022-12-23] MEDS: InsuLIN REG 1unit/0.01ml Soln (100units/ml) SC SCH ×4 (06:01→22:00)
[2022-12-23 08:00] VITALS: PULSE 64; RESP 14; O2SAT 97
[2022-12-23 09:00] VITALS: BP 132/78; PULSE 64; RESP 14; TEMP 97.6; O2SAT 97
[2022-12-23] MEDS: cefTRIAXone 1GM/50ML D5W 50 ML IV SCH (09:09)
[2022-12-23] MEDS: MORPHINE SULFATE INJ 2 MG/ml SYRG IV PRN ×3 (09:15→22:16)
[2022-12-23 12:48] VITALS: BP 128/68; PULSE 61; RESP 14; TEMP 98.1; O2SAT 98
[2022-12-23 17:00] VITALS: BP 139/73; PULSE 70; RESP 14; TEMP 97.9; O2SAT 98
[2022-12-23 22:00] VITALS: BP 128/62; PULSE 80; RESP 18; TEMP 98.6; O2SAT 97
[2022-12-23] MEDS: ATORVASTATIN 20 MG TAB PO SCH (22:09)
[2022-12-24] MEDS: SODIUM CHLORIDE 0.9% 1,000 ML IV SCH ×3 (04:10→22:15)
[2022-12-24] MEDS: MORPHINE SULFATE INJ 2 MG/ml SYRG IV PRN ×5 (04:10→20:05)
[2022-12-24 05:00] VITALS: BP 137/76; PULSE 75; RESP 18; TEMP 99.3; O2SAT 97
[2022-12-24] MEDS: ACCU-CHEK COMFORT CURVE STRIP VI SCH ×4 (06:21→21:31)
[2022-12-24] MEDS: GABAPENTIN 100 MG CAP PO SCH ×3 (06:21→21:31)
[2022-12-24] MEDS: InsuLIN REG 1unit/0.01ml Soln (100units/ml) SC SCH ×4 (06:22→21:35)
[2022-12-24 08:00] VITALS: PULSE 85; RESP 16; O2SAT 95
[2022-12-24] MEDS: cefTRIAXone 1GM/50ML D5W 50 ML IV SCH (08:32)
[2022-12-24 09:00] VITALS: BP 135/78; PULSE 85; RESP 16; TEMP 98.7; O2SAT 95
[2022-12-24 13:00] VITALS: BP 142/76; PULSE 81; RESP 16; TEMP 97.7; O2SAT 98
[2022-12-24 17:00] VITALS: BP 144/74; PULSE 86; RESP 16; TEMP 99.5; O2SAT 97
[2022-12-24] MEDS: HYDROcodone-ACET 10/325MG TAB PO PRN (17:13)
[2022-12-24] MEDS: LACTULOSE 20Gm/30ML SOLN PO PRN (20:05)
[2022-12-24] MEDS: ATORVASTATIN 20 MG TAB PO SCH (21:31)
[2022-12-24 22:00] VITALS: BP 126/72; PULSE 100; RESP 20; TEMP 99.1; O2SAT 95
[2022-12-25] MEDS: MORPHINE SULFATE INJ 2 MG/ml SYRG IV PRN ×4 (03:48→22:09)
[2022-12-25] MEDS: SODIUM CHLORIDE 0.9% 1,000 ML IV SCH ×2 (03:49→15:40)
[2022-12-25 05:17] VITALS: BP 106/61; PULSE 87; RESP 18; TEMP 98.6; O2SAT 94
[2022-12-25] MEDS: GABAPENTIN 100 MG CAP PO SCH ×3 (06:06→22:04)
[2022-12-25] MEDS: InsuLIN REG 1unit/0.01ml Soln (100units/ml) SC SCH ×4 (06:08→22:05)
[2022-12-25] MEDS: ACCU-CHEK COMFORT CURVE STRIP VI SCH ×4 (06:10→22:04)
[2022-12-25 08:00] VITALS: PULSE 79; RESP 16; O2SAT 94
[2022-12-25] MEDS: cefTRIAXone 1GM/50ML D5W 50 ML IV SCH (08:31)
[2022-12-25 09:00] VITALS: BP 124/66; PULSE 79; RESP 16; TEMP 98.6; O2SAT 94
[2022-12-25] MEDS ORDERED: CEPH500C PO (11:36)
[2022-12-25] MEDS ORDERED: HYDR-4798 PO (11:36)
[2022-12-25 12:57] VITALS: BP 119/75; PULSE 80; RESP 14; TEMP 98.6; O2SAT 97
[2022-12-25] MEDS ORDERED: IOHEXOL 350 MG/ML 100ML IJ ONE (14:38)
[2022-12-25 22:00] VITALS: BP 117/68; PULSE 98; RESP 18; TEMP 98.1; O2SAT 97
[2022-12-25] MEDS: ATORVASTATIN 20 MG TAB PO SCH (22:04)
[2022-12-26] MEDS: SODIUM CHLORIDE 0.9% 1,000 ML IV SCH ×3 (01:48→15:55)
[2022-12-26 05:00] VITALS: BP 125/60; PULSE 88; RESP 18; TEMP 98; O2SAT 96
[2022-12-26] MEDS: GABAPENTIN 100 MG CAP PO SCH ×3 (06:13→22:18)
[2022-12-26] MEDS: ACCU-CHEK COMFORT CURVE STRIP VI SCH ×4 (06:13→22:51)
[2022-12-26] MEDS: InsuLIN REG 1unit/0.01ml Soln (100units/ml) SC SCH ×4 (06:15→22:54)
[2022-12-26] MEDS: MORPHINE SULFATE INJ 2 MG/ml SYRG IV PRN ×2 (08:48→17:58)
[2022-12-26] MEDS: cefTRIAXone 1GM/50ML D5W 50 ML IV SCH (08:52)
[2022-12-26 09:00] VITALS: BP 141/77; PULSE 88; RESP 18; TEMP 98.2; O2SAT 95
[2022-12-26 13:00] VITALS: BP 138/74; PULSE 84; RESP 18; TEMP 98.2; O2SAT 96
[2022-12-26 16:28] VITALS: BP 130/69; PULSE 82; RESP 18; TEMP 99.2; O2SAT 93
[2022-12-26 20:00] VITALS: PULSE 90; RESP 18; O2SAT 94
[2022-12-26] MEDS: ATORVASTATIN 20 MG TAB PO SCH (22:18)
[2022-12-26 23:28] VITALS: BP 146/75; PULSE 90; RESP 18; TEMP 99.6; O2SAT 93
[2022-12-27] MEDS: SODIUM CHLORIDE 0.9% 1,000 ML IV SCH ×3 (00:15→17:23)
[2022-12-27 04:49] VITALS: BP 148/80; PULSE 84; RESP 18; TEMP 97.8; O2SAT 95
[2022-12-27] MEDS: GABAPENTIN 100 MG CAP PO SCH ×3 (06:00→21:08)
[2022-12-27] MEDS: MORPHINE SULFATE INJ 2 MG/ml SYRG IV PRN ×2 (06:46→17:37)
[2022-12-27] MEDS: ACCU-CHEK COMFORT CURVE STRIP VI SCH ×4 (06:48→21:59)
[2022-12-27] MEDS: InsuLIN REG 1unit/0.01ml Soln (100units/ml) SC SCH ×4 (06:52→21:08)
[2022-12-27 09:00] VITALS: BP 130/78; PULSE 93; RESP 18; TEMP 99.1; O2SAT 94
[2022-12-27] MEDS: cefTRIAXone 1GM/50ML D5W 50 ML IV SCH (10:32)
[2022-12-27] MEDS ORDERED: IOHEXOL 300 MG/ML 100ML BOTTLE IJ ONE (11:35)
[2022-12-27] MEDS ORDERED: FLUMAZENIL 0.1 MG/ML INJ 10ML MDV IV ONE (11:50)
[2022-12-27] MEDS ORDERED: NALOXONE HCL 1MG/ML 2ML SYRINGE ONE (11:50)
[2022-12-27] MEDS ORDERED: fentaNYL CITRATE 100 MCG/2 ML VL ONE (11:51)
[2022-12-27] MEDS ORDERED: MIDAZOLAM HCL 2MG/2ML 2ml VIAL (1mg/ml) ONE (11:51)
[2022-12-27 17:00] VITALS: BP 148/74; PULSE 88; RESP 18; TEMP 98; O2SAT 96
[2022-12-27] MEDS: ATORVASTATIN 20 MG TAB PO SCH (21:08)
[2022-12-27 22:00] VITALS: BP 142/77; PULSE 91; RESP 20; TEMP 99.5; O2SAT 95
[2022-12-28] MEDS: MORPHINE SULFATE INJ 2 MG/ml SYRG IV PRN ×2 (01:07→11:31)
[2022-12-28] MEDS: SODIUM CHLORIDE 0.9% 1,000 ML IV SCH ×3 (01:15→18:16)
[2022-12-28 05:00] VITALS: BP 121/81; PULSE 86; RESP 20; TEMP 98.5; O2SAT 94
[2022-12-28] MEDS: GABAPENTIN 100 MG CAP PO SCH ×4 (06:00→21:11)
[2022-12-28] MEDS: LACTULOSE 20Gm/30ML SOLN PO PRN (06:27)
[2022-12-28] MEDS: InsuLIN REG 1unit/0.01ml Soln (100units/ml) SC SCH ×4 (06:38→21:11)
[2022-12-28] MEDS: ACCU-CHEK COMFORT CURVE STRIP VI SCH ×4 (06:38→22:00)
[2022-12-28 09:21] VITALS: BP 134/77; PULSE 77; RESP 18; TEMP 98.4; O2SAT 95
[2022-12-28] MEDS: cefTRIAXone 1GM/50ML D5W 50 ML IV SCH (09:48)
[2022-12-28 13:03] VITALS: BP 119/71; PULSE 104; RESP 18; TEMP 99; O2SAT 94
[2022-12-28] MEDS: HYDROcodone-ACET 10/325MG TAB PO PRN (15:29)
[2022-12-28 17:05] VITALS: BP 145/85; PULSE 75; RESP 18; TEMP 98.3; O2SAT 96
[2022-12-28] MEDS: ATORVASTATIN 20 MG TAB PO SCH (21:11)
[2022-12-28 22:00] VITALS: BP_SYST 129; BP_SYST 149; BP_DIAS 50; BP_DIAS 83; PULSE 75; PULSE 90; RESP 16; RESP 18; TEMP 97.7; TEMP 97.9; O2SAT 93; O2SAT 98
[2022-12-29] MEDS: SODIUM CHLORIDE 0.9% 1,000 ML IV SCH ×2 (02:15→09:15)
[2022-12-29] MEDS: MORPHINE SULFATE INJ 2 MG/ml SYRG IV PRN (05:17)
[2022-12-29] MEDS: GABAPENTIN 100 MG CAP PO SCH ×2 (06:00→14:24)
[2022-12-29] MEDS: InsuLIN REG 1unit/0.01ml Soln (100units/ml) SC SCH ×3 (06:32→17:00)
[2022-12-29] MEDS: ACCU-CHEK COMFORT CURVE STRIP VI SCH ×3 (06:32→17:00)
[2022-12-29 08:00] VITALS: PULSE 73; RESP 16
[2022-12-29 09:00] VITALS: BP 134/71; PULSE 73; RESP 16; TEMP 98.4; O2SAT 96
[2022-12-29] MEDS: cefTRIAXone 1GM/50ML D5W 50 ML IV SCH (09:14)
[2022-12-29] MEDS: LACTULOSE 20Gm/30ML SOLN PO PRN (09:24)
[2022-12-29] MEDS: HYDROcodone-ACET 10/325MG TAB PO PRN (12:38)
[2022-12-29 13:00] VITALS: BP 158/81; PULSE 77; RESP 18; TEMP 98.5; O2SAT 94
[2022-12-29 16:20] VITALS: BP 134/71; PULSE 73; RESP 16; TEMP 36.9; O2SAT 96
== END 2022-12-29 18:03 | disposition home health service (06) | DRG 445 ==
LOC: ER 03:19 → OVERFLOW 19:07 → WEST WING 12-22 11:08
PROVIDERS: ADMIT Nurse Practitioner Family; ATTEND Nurse Practitioner
PROC: 0T9130Z Drainage of Left Kidney with Drainage Device, Percutaneous Approach (ICD-10-PCS; principal; 2022-12-22)
PROC: 0T7B3DZ Dilation of Bladder with Intraluminal Device, Percutaneous Approach (ICD-10-PCS; 2022-12-22)
PROC: 0WBH3ZX Excision of Retroperitoneum, Percutaneous Approach, Diagnostic (ICD-10-PCS; 2022-12-27)
DX: N13.6 Pyonephrosis (principal); E11.9 Type 2 diabetes mellitus without complications; I10 Essential (primary) hypertension; I25.10 Atherosclerotic heart disease of native coronary artery without angina pectoris; R59.0 Localized enlarged lymph nodes; E78.5 Hyperlipidemia, unspecified; Z82.49 Family history of ischemic heart disease and other diseases of the circulatory system; Z83.3 Family history of diabetes mellitus; F41.9 Anxiety disorder, unspecified
CPT/HCPCS: 10005; 36415; 50432; 71045; 71260; 74150; 74176; 74425; 76942; 77012; 80053; 81001; 82962; 83690; 84484; 85025; 85610; 85730; 96365; 96372; 97110; 97116; 97530; 99152; G0378; J0696; J1815; J1885; J2250; Q9967

== ENCOUNTER 2023-01-11 08:28 | Inpatient (IN) | payer MEDICAID ==
[~2023-01-11] VITALS: Ht 162.6 cm; Wt 75.0 kg
[~2023-01-11 08:28] MED LIST changes: +CEPH500C PO; +HYDR-4798 PO; -IBU600T PO
[2023-01-11 09:07] LABS: Basophils # (auto) 0.1 10 ^3/uL (0-0.2); Eosinophils # (auto) 0.3 10 ^3/uL (0-0.8); Mean Corpuscular Volume 87.8 fL (80.0-100.0)
[2023-01-11 09:09] LABS: Basophils % (auto) 0.7 % (0.0-2.0); Eosinophils % (auto) 3.4 % (0.0-7.0); Hematocrit 40.3 % (36.0-46.0); Hemoglobin 13.2 g/dL (12.2-16.2); Lymphocytes # (auto) 1.1 10 ^3/uL (0.4-5.4); Mean Corpuscular Hemoglobin 28.7 pg (28.0-32.0); Mean Corpuscular Hgb Conc. 32.6 g/dL (32.0-36.0); Monocytes # (auto) 0.6 10 ^3/uL (0-1.3); Monocytes % (auto) 7.6 % (0.0-12.0); Neutrophils # (auto) 5.6 10 ^3/uL (1.6-8.6); Neutrophils % (auto) 74.3 % (37.0-80.0); Red Blood Cells 4.59 10^6/uL (4.0-5.20); Red Cell Distribution Width 14.3 % (11.8-14.3); White Blood Cell 7.6 10^3/uL (4.4-10.8)
[2023-01-11 09:14] LABS: Urine Bacteria FEW /hpf (None Seen); Urine Blood 2+ /uL (Negative); Urine Clarity HAZY (Clear); Urine Color Yellow (Yellow); Urine Protein, UAD 1+ (Negative); Urine Specific Gravity 1.015 (1.001-1.035); Urine Urobilinogen Normal (Negative); Urine WBC 118 /hpf (0 - 5); Urine pH 7.5 (5.0-8.0)
[2023-01-11 09:27] LABS: Alanine Aminotransferase 18 U/L (7-40); Albumin 4.3 g/dL (3.2-4.8); Alkaline Phosphatase 152 U/L (46-116); Anion Gap 8 (5-15); Aspartate Aminotransferase 18 U/L (13-40); BUN/Creatinine Ratio 10.3 (10.0-20.0); Bilirubin, Total 0.5 mg/dL (0.2-1.0); Blood Urea Nitrogen 8 mg/dL (9-23); Calcium 9.9 mg/dL (8.5-10.1); Carbon Dioxide 29 mmol/L (20-30); Chloride 96 mmol/L (98-107); Glucose 186 mg/dL (74-106); Sodium 133 mmol/L (136-145)
[2023-01-11 09:28] LABS: Total Protein 7.1 g/dL (5.7-8.2)
[2023-01-11] MEDS ORDERED: SODIUM CHLORIDE 0.9% 2,300 ML IV ONE (10:30)
[2023-01-11] MEDS ORDERED: CEFTRIAXONE SODIUM 2 GM in D5W 5% 100 ML IV ONE (10:30)
[2023-01-11] MEDS ORDERED: KETOROLAC TROMETH 30 MG/ML 1ML VIAL IV ONE (10:30)
[2023-01-11 13:49] VITALS: PULSE 78; RESP 16; O2SAT 98
[2023-01-11] MEDS ORDERED: TEMAZEPAM 15 MG CAP PO PRN (16:15)
[2023-01-11] MEDS ORDERED: NITROGLYCERIN 0.4 MG SL TAB SL PRN (16:15)
[2023-01-11] MEDS ORDERED: DEXTROSE (50%) 50ML SYRG IV PRN (16:15)
[2023-01-11] MEDS ORDERED: MORPHINE SULFATE INJ 2 MG/ml SYRG IV PRN (16:15)
[2023-01-11] MEDS: levoFLOXacin 500MG 100 ML IV SCH (16:33)
[2023-01-11] MEDS: ONDANSETRON HCL 4 MG/2 ML VIAL IV PRN (17:21)
[2023-01-11] MEDS: MORPHINE SULFATE INJ 2 MG/ml SYRG IV PRN ×2 (17:21→23:03)
[2023-01-11] MEDS: ACCU-CHEK COMFORT CURVE STRIP VI SCH ×2 (17:33→22:48)
[2023-01-11] MEDS: InsuLIN REG 1unit/0.01ml Soln (100units/ml) SC SCH ×2 (17:33→22:50)
[2023-01-11 19:30] VITALS: PULSE 95; RESP 17; O2SAT 98
[2023-01-12 04:34] LABS: Eosinophils # (auto) 0.2 10 ^3/uL (0-0.8); Eosinophils % (auto) 2.5 % (0.0-7.0); Hemoglobin 13.2 g/dL (12.2-16.2); Monocytes # (auto) 0.8 10 ^3/uL (0-1.3); Neutrophils # (auto) 5.9 10 ^3/uL (1.6-8.6); White Blood Cell 7.9 10^3/uL (4.4-10.8)
[2023-01-12 04:38] LABS: Basophils # (auto) 0.1 10 ^3/uL (0-0.2); Basophils % (auto) 0.9 % (0.0-2.0); Hematocrit 39.3 % (36.0-46.0); Lymphocytes # (auto) 0.9 10 ^3/uL (0.4-5.4); Lymphocytes % (auto) 11.8 % (10.0-50.0); Mean Corpuscular Hemoglobin 29.8 pg (28.0-32.0); Mean Corpuscular Hgb Conc. 33.6 g/dL (32.0-36.0); Mean Corpuscular Volume 88.7 fL (80.0-100.0); Neutrophils % (auto) 74.8 % (37.0-80.0); Red Blood Cells 4.43 10^6/uL (4.0-5.20); Red Cell Distribution Width 14.2 % (11.8-14.3)
[2023-01-12] MEDS: MORPHINE SULFATE INJ 2 MG/ml SYRG IV PRN ×5 (04:42→21:27)
[2023-01-12 04:54] LABS: Alanine Aminotransferase 16 U/L (7-40); Albumin 4.2 g/dL (3.2-4.8); Alkaline Phosphatase 146 U/L (46-116); Anion Gap 7 (5-15); Aspartate Aminotransferase 17 U/L (13-40); Bilirubin, Total 0.4 mg/dL (0.2-1.0); Calcium 9.3 mg/dL (8.7-10.4); Carbon Dioxide 23 mmol/L (20-30); Chloride 101 mmol/L (98-107); Glucose 148 mg/dL (74-106); Potassium 3.9 mmol/L (3.5-5.1); Sodium 131 mmol/L (136-145); Total Protein 7.2 g/dL (5.7-8.2)
[2023-01-12 05:06] LABS: BUN/Creatinine Ratio 7.8 (10.0-20.0); Blood Urea Nitrogen < 5 mg/dL (9-23)
[2023-01-12] MEDS: ACCU-CHEK COMFORT CURVE STRIP VI SCH ×4 (07:00→21:33)
[2023-01-12] MEDS: InsuLIN REG 1unit/0.01ml Soln (100units/ml) SC SCH ×4 (07:00→21:33)
[2023-01-12 08:12] VITALS: PULSE 88; RESP 18; O2SAT 95
[2023-01-12 09:35] VITALS: BP 132/84; PULSE 78; RESP 18; TEMP 98.6; O2SAT 96
[2023-01-12] MEDS ORDERED: IOHEXOL 300 MG/ML 100ML BOTTLE IJ ONE (10:02)
[2023-01-12] MEDS: PANTOPRAZOLE 40 MG/10 ML VIAL INJ IV SCH (11:50)
[2023-01-12] MEDS: levoFLOXacin 500MG 100 ML IV SCH (11:50)
[2023-01-12] MEDS: ENOXAPARIN SOD 40 MG/0.4 ML SYRINGE SC SCH (11:50)
[2023-01-12] MEDS: HYDROcodone-ACET 5/325MG TAB PO PRN ×3 (11:51→19:00)
[2023-01-12] MEDS: ONDANSETRON HCL 4 MG/2 ML VIAL IV PRN ×2 (12:17→18:00)
[2023-01-12 16:52] LABS: INR 1.06 (0.9-1.15); Prothrombin Time 11.1 sec (9.3-11.8)
[2023-01-12 17:00] VITALS: BP 123/73; PULSE 86; RESP 16; TEMP 98.6; O2SAT 96
[2023-01-12 20:00] VITALS: PULSE 89; RESP 20; O2SAT 97
[2023-01-12 22:00] VITALS: BP 128/81; PULSE 91; RESP 20; TEMP 98.2; O2SAT 97
[2023-01-13] MEDS: MORPHINE SULFATE INJ 2 MG/ml SYRG IV PRN ×5 (01:34→23:56)
[2023-01-13 05:00] VITALS: BP_SYST 140; PULSE 90; RESP 20; TEMP 97.9; O2SAT 95
[2023-01-13] MEDS: ACCU-CHEK COMFORT CURVE STRIP VI SCH ×4 (06:39→21:06)
[2023-01-13] MEDS: InsuLIN REG 1unit/0.01ml Soln (100units/ml) SC SCH ×4 (06:39→21:07)
[2023-01-13 08:41] VITALS: BP 123/73; PULSE 83; RESP 20; TEMP 98.7; O2SAT 95
[2023-01-13] MEDS: PANTOPRAZOLE 40 MG/10 ML VIAL INJ IV SCH (10:00)
[2023-01-13] MEDS: levoFLOXacin 500MG 100 ML IV SCH ×2 (10:00→10:01)
[2023-01-13] MEDS: ENOXAPARIN SOD 40 MG/0.4 ML SYRINGE SC SCH (10:00)
[2023-01-13 13:00] VITALS: BP_SYST 139; BP_SYST 164; BP_DIAS 60; BP_DIAS 73; PULSE 64; PULSE 76; RESP 20; TEMP 98.5; TEMP 98.6; O2SAT 95
[2023-01-13 17:00] VITALS: BP 135/82; PULSE 83; RESP 20; TEMP 97.5; O2SAT 98
[2023-01-13 20:00] VITALS: BP 139/79; PULSE 93; RESP 20; TEMP 99.6; O2SAT 95
[2023-01-13] MEDS: HYDROcodone-ACET 5/325MG TAB PO PRN (21:03)
[2023-01-13 22:00] VITALS: BP 139/79; PULSE 93; RESP 20; TEMP 99.6; O2SAT 95
[2023-01-14] VITALS (7 sets, daily range): BP systolic 112–124; BP diastolic 70–83; PULSE 87–97; RESP 18–22; TEMP 97.8–98.5; O2SAT 94–97
[2023-01-14] MEDS: MORPHINE SULFATE INJ 2 MG/ml SYRG IV PRN ×2 (04:02→08:37)
[2023-01-14] MEDS: ACCU-CHEK COMFORT CURVE STRIP VI SCH ×4 (06:56→23:11)
[2023-01-14] MEDS: InsuLIN REG 1unit/0.01ml Soln (100units/ml) SC SCH ×4 (06:57→22:00)
[2023-01-14] MEDS: levoFLOXacin 500MG 100 ML IV SCH (08:38)
[2023-01-14] MEDS: ENOXAPARIN SOD 40 MG/0.4 ML SYRINGE SC SCH (08:38)
[2023-01-14] MEDS: PANTOPRAZOLE 40 MG/10 ML VIAL INJ IV SCH (08:38)
[2023-01-14] MEDS ORDERED: LACTULOSE 20Gm/30ML SOLN PO PRN (10:00)
[2023-01-14] MEDS: DOCUSATE SOD 100 MG CAP PO SCH ×2 (10:15→23:01)
[2023-01-14] MEDS ORDERED: NITROGLYCERIN 0.4 MG SL TAB SL PRN (11:45)
[2023-01-14] MEDS: KETOROLAC TROMETH 30 MG/ML 1ML VIAL IV SCH ×2 (12:54→23:00)
[2023-01-14] MEDS: cefTRIAXone 1GM/50ML D5W 50 ML IV SCH (12:55)
[2023-01-14] MEDS: OXYCODONE W/ ACETAMINOPHEN 5/325MG TABLET PO PRN (14:44)
[2023-01-14] MEDS: HYDROmorphone HCL 2 MG/ML VL/or syr IV PRN (19:05)
[2023-01-15] VITALS (7 sets, daily range): BP systolic 94–124; BP diastolic 59–74; PULSE 77–97; RESP 16–98; TEMP 98–98.8; O2SAT 94–97
[2023-01-15] MEDS: InsuLIN REG 1unit/0.01ml Soln (100units/ml) SC SCH ×4 (06:39→21:27)
[2023-01-15] MEDS: HYDROmorphone HCL 2 MG/ML VL/or syr IV PRN ×3 (06:42→21:22)
[2023-01-15] MEDS: ACCU-CHEK COMFORT CURVE STRIP VI SCH ×4 (06:44→21:26)
[2023-01-15 06:51] LABS: Eosinophils # (auto) 0.4 10 ^3/uL (0-0.8); Eosinophils % (auto) 5.4 % (0.0-7.0); Lymphocytes # (auto) 1.3 10 ^3/uL (0.4-5.4); Neutrophils # (auto) 4.7 10 ^3/uL (1.6-8.6); Red Cell Distribution Width 14.2 % (11.8-14.3); White Blood Cell 7.3 10^3/uL (4.4-10.8)
[2023-01-15 06:54] LABS: Basophils # (auto) 0.1 10 ^3/uL (0-0.2); Basophils % (auto) 0.7 % (0.0-2.0); Mean Corpuscular Hemoglobin 29.8 pg (28.0-32.0); Mean Corpuscular Hgb Conc. 34.3 g/dL (32.0-36.0); Monocytes # (auto) 0.8 10 ^3/uL (0-1.3); Monocytes % (auto) 11.1 % (0.0-12.0); Neutrophils % (auto) 64.8 % (37.0-80.0); Red Blood Cells 4.37 10^6/uL (4.0-5.20)
[2023-01-15 07:01] LABS: INR 0.98 (0.9-1.15); Partial Thromboplastin Time 29.7 SEC (24.5-34.5); Prothrombin Time 10.3 sec (9.3-11.8)
[2023-01-15 07:04] LABS: Alanine Aminotransferase 18 U/L (7-40); Alkaline Phosphatase 123 U/L (46-116); Anion Gap 9 (5-15); BUN/Creatinine Ratio 24.7 (10.0-20.0); Blood Urea Nitrogen 20 mg/dL (9-23); Calcium 9.5 mg/dL (8.7-10.4); Carbon Dioxide 27 mmol/L (20-30); Chloride 96 mmol/L (98-107); Glucose 113 mg/dL (74-106); Potassium 4.3 mmol/L (3.5-5.1); Sodium 132 mmol/L (136-145)
[2023-01-15 07:05] LABS: Albumin 3.8 g/dL (3.2-4.8); Aspartate Aminotransferase 24 U/L (13-40); Bilirubin, Total 0.5 mg/dL (0.2-1.0); Total Protein 6.4 g/dL (5.7-8.2)
[2023-01-15] MEDS: cefTRIAXone 1GM/50ML D5W 50 ML IV SCH (09:07)
[2023-01-15] MEDS: KETOROLAC TROMETH 30 MG/ML 1ML VIAL IV SCH ×2 (09:07→22:29)
[2023-01-15] MEDS: PANTOPRAZOLE 40 MG/10 ML VIAL INJ IV SCH (09:07)
[2023-01-15] MEDS: DOCUSATE SOD 100 MG CAP PO SCH ×2 (09:08→21:22)
[2023-01-15] MEDS: ENOXAPARIN SOD 40 MG/0.4 ML SYRINGE SC SCH (10:33)
[2023-01-15] MEDS ORDERED: NALOXONE HCL 1MG/ML 2ML SYRINGE ONE (13:55)
[2023-01-15] MEDS ORDERED: FLUMAZENIL 0.1 MG/ML INJ 10ML MDV IV ONE (13:55)
[2023-01-15] MEDS ORDERED: MIDAZOLAM HCL 2MG/2ML 2ml VIAL (1mg/ml) ONE (13:55)
[2023-01-15] MEDS ORDERED: fentaNYL CITRATE 100 MCG/2 ML VL ONE (13:56)
[2023-01-15] MEDS ORDERED: LIDOCAINE 2%HCL (LOCAL ANESTH.) INJ 10ml MDV ONE (13:57)
[2023-01-16] VITALS (7 sets, daily range): BP systolic 95–111; BP diastolic 58–66; PULSE 77–91; RESP 16–18; TEMP 97.5–98.2; O2SAT 93–96
[2023-01-16] MEDS: HYDROmorphone HCL 2 MG/ML VL/or syr IV PRN ×3 (02:17→20:29)
[2023-01-16] MEDS: ACCU-CHEK COMFORT CURVE STRIP VI SCH ×4 (06:38→21:00)
[2023-01-16] MEDS: InsuLIN REG 1unit/0.01ml Soln (100units/ml) SC SCH ×4 (06:38→22:00)
[2023-01-16] MEDS: DOCUSATE SOD 100 MG CAP PO SCH ×2 (09:57→22:05)
[2023-01-16] MEDS: cefTRIAXone 1GM/50ML D5W 50 ML IV SCH (09:57)
[2023-01-16] MEDS: KETOROLAC TROMETH 30 MG/ML 1ML VIAL IV SCH (09:57)
[2023-01-16] MEDS: ENOXAPARIN SOD 40 MG/0.4 ML SYRINGE SC SCH (09:57)
[2023-01-16] MEDS: PANTOPRAZOLE 40 MG/10 ML VIAL INJ IV SCH (09:57)
[2023-01-16] MEDS: OXYCODONE W/ ACETAMINOPHEN 5/325MG TABLET PO PRN (11:24)
[2023-01-16] MEDS: ONDANSETRON HCL 4 MG/2 ML VIAL IV PRN (20:28)
[2023-01-17] MEDS: HYDROmorphone HCL 2 MG/ML VL/or syr IV PRN ×3 (01:07→12:07)
[2023-01-17] MEDS: ONDANSETRON HCL 4 MG/2 ML VIAL IV PRN ×2 (01:12→06:16)
[2023-01-17 05:00] VITALS: BP 99/53; PULSE 69; RESP 19; TEMP 97.6; O2SAT 96
[2023-01-17] MEDS: ACCU-CHEK COMFORT CURVE STRIP VI SCH ×4 (06:05→22:21)
[2023-01-17] MEDS: InsuLIN REG 1unit/0.01ml Soln (100units/ml) SC SCH ×4 (06:07→22:00)
[2023-01-17 09:00] VITALS: BP 99/58; PULSE 85; RESP 17; TEMP 98.1; O2SAT 93
[2023-01-17] MEDS: cefTRIAXone 1GM/50ML D5W 50 ML IV SCH (09:01)
[2023-01-17] MEDS: ENOXAPARIN SOD 40 MG/0.4 ML SYRINGE SC SCH (09:01)
[2023-01-17] MEDS: DOCUSATE SOD 100 MG CAP PO SCH ×2 (09:01→22:20)
[2023-01-17] MEDS: PANTOPRAZOLE 40 MG/10 ML VIAL INJ IV SCH (09:01)
[2023-01-17 12:39] VITALS: BP 110/69; PULSE 75; RESP 19; TEMP 98.3; O2SAT 98
[2023-01-17 17:00] VITALS: BP 116/65; PULSE 80; RESP 18; TEMP 97.9; O2SAT 95
[2023-01-17] MEDS: MORPHINE SULF 30 mg ER tab PO SCH ×2 (17:39→22:21)
[2023-01-17] MEDS: HYDROmorphone HCL 2 MG TAB PO PRN (19:43)
[2023-01-17 21:49] VITALS: BP 103/62; PULSE 85; RESP 18; TEMP 97.9; O2SAT 96
[2023-01-18 05:00] VITALS: BP 106/58; PULSE 96; RESP 19; TEMP 98.2; O2SAT 97
[2023-01-18] MEDS: ACCU-CHEK COMFORT CURVE STRIP VI SCH ×4 (06:16→22:32)
[2023-01-18] MEDS: InsuLIN REG 1unit/0.01ml Soln (100units/ml) SC SCH ×4 (06:16→22:00)
[2023-01-18 09:00] VITALS: BP 104/65; PULSE 94; RESP 18; TEMP 97.6; O2SAT 94
[2023-01-18] MEDS: MORPHINE SULF 30 mg ER tab PO SCH ×2 (09:53→22:04)
[2023-01-18] MEDS: ENOXAPARIN SOD 40 MG/0.4 ML SYRINGE SC SCH (09:53)
[2023-01-18] MEDS: cefTRIAXone 1GM/50ML D5W 50 ML IV SCH (09:53)
[2023-01-18] MEDS: PANTOPRAZOLE 40 MG/10 ML VIAL INJ IV SCH (09:53)
[2023-01-18] MEDS: DOCUSATE SOD 100 MG CAP PO SCH ×2 (09:54→22:04)
[2023-01-18 13:44] VITALS: BP 115/74; PULSE 82; RESP 20; TEMP 98.1; O2SAT 95
[2023-01-18 16:38] VITALS: BP 99/62; PULSE 78; RESP 18; TEMP 98.6; O2SAT 93
[2023-01-18] MEDS: HYDROmorphone HCL 2 MG TAB PO PRN (16:51)
[2023-01-18 22:00] VITALS: BP_SYST 106; BP_SYST 110; BP_DIAS 67; BP_DIAS 72; PULSE 114; PULSE 83; RESP 18; RESP 82; TEMP 97.8; TEMP 98; O2SAT 95; O2SAT 98
[2023-01-19] VITALS (9 sets, daily range): BP systolic 99–113; BP diastolic 63–74; PULSE 60–113; RESP 12–68; TEMP 97.3–97.9; O2SAT 90–97
[2023-01-19 05:33] LABS: Basophils # (auto) 0 10 ^3/uL (0-0.2); Basophils % (auto) 0.5 % (0.0-2.0); Eosinophils # (auto) 0.5 10 ^3/uL (0-0.8); Eosinophils % (auto) 5.7 % (0.0-7.0); Hematocrit 37.5 % (36.0-46.0); Hemoglobin 12.3 g/dL (12.2-16.2); Lymphocytes # (auto) 1.5 10 ^3/uL (0.4-5.4); Lymphocytes % (auto) 18.1 % (10.0-50.0); Mean Corpuscular Hemoglobin 28.8 pg (28.0-32.0); Mean Corpuscular Hgb Conc. 32.8 g/dL (32.0-36.0); Mean Corpuscular Volume 87.9 fL (80.0-100.0); Monocytes # (auto) 0.9 10 ^3/uL (0-1.3); Monocytes % (auto) 10.6 % (0.0-12.0); Neutrophils # (auto) 5.3 10 ^3/uL (1.6-8.6); Neutrophils % (auto) 65.1 % (37.0-80.0); Red Blood Cells 4.26 10^6/uL (4.0-5.20); Red Cell Distribution Width 14.6 % (11.8-14.3); White Blood Cell 8.1 10^3/uL (4.4-10.8)
[2023-01-19 05:56] LABS: Partial Thromboplastin Time 29.6 SEC (24.5-34.5); Prothrombin Time 10.5 sec (9.3-11.8)
[2023-01-19] MEDS: HYDROmorphone HCL 2 MG TAB PO PRN (06:52)
[2023-01-19] MEDS: InsuLIN REG 1unit/0.01ml Soln (100units/ml) SC SCH ×4 (07:00→22:00)
[2023-01-19 07:36] LABS: Alanine Aminotransferase 16 U/L (7-40); Albumin 3.7 g/dL (3.2-4.8); Alkaline Phosphatase 107 U/L (46-116); Anion Gap 6 (5-15); Aspartate Aminotransferase 17 U/L (13-40); Blood Urea Nitrogen 15 mg/dL (9-23); Calcium 9.2 mg/dL (8.5-10.1); Carbon Dioxide 29 mmol/L (20-30); Chloride 100 mmol/L (98-107); Glucose 104 mg/dL (74-106); Potassium 4.9 mmol/L (3.5-5.1); Sodium 135 mmol/L (136-145)
[2023-01-19 07:37] LABS: Bilirubin, Total 0.3 mg/dL (0.2-1.0)
[2023-01-19] MEDS: ACCU-CHEK COMFORT CURVE STRIP VI SCH ×3 (07:57→17:59)
[2023-01-19] MEDS: ENOXAPARIN SOD 40 MG/0.4 ML SYRINGE SC SCH (08:20)
[2023-01-19] MEDS ORDERED: LIDOCAINE 2%HCL (LOCAL ANESTH.) INJ 20ML MDV ONE (09:43)
[2023-01-19] MEDS ORDERED: HEPARIN SODIUM (PORCINE) 5000 UNITS/ML 1ML VIAL ONE (09:44)
[2023-01-19] MEDS ORDERED: MIDAZOLAM HCL 2MG/2ML 2ml VIAL (1mg/ml) ONE (09:45)
[2023-01-19] MEDS ORDERED: fentaNYL CITRATE 100 MCG/2 ML VL ONE (09:45)
[2023-01-19] MEDS ORDERED: ceFAZolin 1GM/50ML 50 ML IV ONE (10:04)
[2023-01-19 10:17] LABS: Urine Bacteria MANY /hpf (None Seen); Urine Blood 1+ /uL (Negative); Urine Budding Yeast MODERATE /hpf (None Seen); Urine Clarity CLOUDY (Clear); Urine Color Yellow (Yellow); Urine Mucus FEW (None Seen); Urine Protein, UAD 1+ (Negative); Urine Specific Gravity 1.016 (1.001-1.035); Urine Urobilinogen Normal (Negative); Urine WBC 108 /hpf (0 - 5)
[2023-01-19] MEDS: cefTRIAXone 1GM/50ML D5W 50 ML IV SCH (12:31)
[2023-01-19] MEDS: PANTOPRAZOLE 40 MG/10 ML VIAL INJ IV SCH (12:31)
[2023-01-19] MEDS: DOCUSATE SOD 100 MG CAP PO SCH ×2 (12:32→22:11)
[2023-01-19] MEDS: MORPHINE SULF 30 mg ER tab PO SCH ×2 (12:32→22:11)
[2023-01-19] MEDS ORDERED: HYDROcodone-ACET 10/325MG TAB PO PRN (13:30)
[2023-01-19] MEDS: ACETAMINOPHEN 325 MG TAB PO PRN (14:06)
[2023-01-20] MEDS: ACCU-CHEK COMFORT CURVE STRIP VI SCH ×5 (01:26→21:57)
[2023-01-20 05:00] VITALS: BP 125/76; PULSE 91; RESP 18; TEMP 98.2; O2SAT 96
[2023-01-20] MEDS: InsuLIN REG 1unit/0.01ml Soln (100units/ml) SC SCH ×4 (07:00→21:57)
[2023-01-20] MEDS: ACETAMINOPHEN 325 MG TAB PO PRN (07:16)
[2023-01-20 08:00] VITALS: BP 106/65; PULSE 83; RESP 18; RESP 19; TEMP 98.5; O2SAT 93; O2SAT 95
[2023-01-20] MEDS: MORPHINE SULF 30 mg ER tab PO SCH ×2 (10:30→21:48)
[2023-01-20] MEDS: DOCUSATE SOD 100 MG CAP PO SCH ×2 (10:30→21:47)
[2023-01-20] MEDS: ENOXAPARIN SOD 40 MG/0.4 ML SYRINGE SC SCH (10:30)
[2023-01-20] MEDS: PANTOPRAZOLE 40 MG/10 ML VIAL INJ IV SCH (10:31)
[2023-01-20] MEDS: cefTRIAXone 1GM/50ML D5W 50 ML IV SCH (10:35)
[2023-01-20 12:53] VITALS: BP 106/70; PULSE 83; RESP 18; TEMP 98.2; O2SAT 93
[2023-01-20 17:00] VITALS: BP 119/68; PULSE 81; RESP 18; TEMP 98.6; O2SAT 94
[2023-01-20 20:00] VITALS: PULSE 86; RESP 20
[2023-01-20 22:00] VITALS: BP 116/72; PULSE 86; RESP 20; TEMP 98.3; O2SAT 94
[2023-01-21 05:00] VITALS: BP 120/75; PULSE 108; RESP 16; TEMP 98.3; O2SAT 93
[2023-01-21] MEDS: ACETAMINOPHEN 325 MG TAB PO PRN (06:04)
[2023-01-21] MEDS: ONDANSETRON HCL 4 MG/2 ML VIAL IV PRN (06:04)
[2023-01-21 06:13] LABS: Basophils # (auto) 0 10 ^3/uL (0-0.2); Basophils % (auto) 0.5 % (0.0-2.0); Eosinophils # (auto) 0.2 10 ^3/uL (0-0.8); Eosinophils % (auto) 2.5 % (0.0-7.0); Hematocrit 38.3 % (36.0-46.0); Hemoglobin 12.5 g/dL (12.2-16.2); Lymphocytes # (auto) 0.7 10 ^3/uL (0.4-5.4); Lymphocytes % (auto) 8.8 % (10.0-50.0); Mean Corpuscular Hemoglobin 28.6 pg (28.0-32.0); Mean Corpuscular Hgb Conc. 32.8 g/dL (32.0-36.0); Mean Corpuscular Volume 87.4 fL (80.0-100.0); Monocytes # (auto) 0.7 10 ^3/uL (0-1.3); Monocytes % (auto) 9.7 % (0.0-12.0); Neutrophils % (auto) 78.5 % (37.0-80.0); Red Blood Cells 4.38 10^6/uL (4.0-5.20); Red Cell Distribution Width 14.8 % (11.8-14.3); White Blood Cell 7.7 10^3/uL (4.4-10.8)
[2023-01-21] MEDS: ACCU-CHEK COMFORT CURVE STRIP VI SCH ×3 (06:37→16:22)
[2023-01-21] MEDS: InsuLIN REG 1unit/0.01ml Soln (100units/ml) SC SCH ×3 (06:38→16:22)
[2023-01-21 06:47] LABS: Alanine Aminotransferase 11 U/L (7-40); Alkaline Phosphatase 114 U/L (46-116); Anion Gap 7 (5-15); BUN/Creatinine Ratio 11.3 (10.0-20.0); Blood Urea Nitrogen 9 mg/dL (9-23); Calcium 9.7 mg/dL (8.5-10.1); Carbon Dioxide 27 mmol/L (20-30); Chloride 100 mmol/L (98-107); Glucose 125 mg/dL (74-106); Potassium 4.7 mmol/L (3.5-5.1); Sodium 134 mmol/L (136-145)
[2023-01-21 06:48] LABS: Albumin 3.9 g/dL (3.2-4.8); Aspartate Aminotransferase 22 U/L (13-40); Bilirubin, Total 0.4 mg/dL (0.2-1.0); Total Protein 6.7 g/dL (5.7-8.2)
[2023-01-21 08:00] VITALS: BP 115/67; PULSE 101; RESP 16; TEMP 97; O2SAT 94
[2023-01-21] MEDS: DOCUSATE SOD 100 MG CAP PO SCH (08:41)
[2023-01-21] MEDS: MORPHINE SULF 30 mg ER tab PO SCH (08:42)
[2023-01-21] MEDS: PANTOPRAZOLE 40 MG/10 ML VIAL INJ IV SCH (08:42)
[2023-01-21] MEDS: cefTRIAXone 1GM/50ML D5W 50 ML IV SCH (08:45)
[2023-01-21] MEDS: ENOXAPARIN SOD 40 MG/0.4 ML SYRINGE SC SCH (08:48)
[2023-01-21 13:00] VITALS: BP 123/73; PULSE 90; RESP 20; TEMP 98.4; O2SAT 96
[2023-01-21] MEDS ORDERED: MORP30TA5 PO (13:23)
[2023-01-21] MEDS ORDERED: HYDR-4798 PO (13:23)
[2023-01-21] MEDS ORDERED: NALO4SPR2 NAS (13:27)
[2023-01-21 14:01] VITALS: BP 123/73; PULSE 90; RESP 20; TEMP 98.4; O2SAT 96
[2023-01-21 17:00] VITALS: BP 112/66; PULSE 87; RESP 18; TEMP 98.2; O2SAT 94
== END 2023-01-21 16:10 | disposition home or self-care (01) | DRG 463 ==
LOC: ER 08:28 → OVERFLOW 16:16 → WEST WING 01-12 09:25
PROVIDERS: ADMIT Nurse Practitioner; ATTEND Nurse Practitioner
PROC: 0T9130Z Drainage of Left Kidney with Drainage Device, Percutaneous Approach (ICD-10-PCS; 2023-01-12)
PROC: BT121ZZ Fluoroscopy of Left Kidney using Low Osmolar Contrast (ICD-10-PCS; 2023-01-12)
PROC: 0WBH3ZX Excision of Retroperitoneum, Percutaneous Approach, Diagnostic (ICD-10-PCS; 2023-01-15)
PROC: 02HV33Z Insertion of Infusion Device into Superior Vena Cava, Percutaneous Approach (ICD-10-PCS; principal; 2023-01-19)
PROC: B5181ZA Fluoroscopy of Superior Vena Cava using Low Osmolar Contrast, Guidance (ICD-10-PCS; 2023-01-19)
PROC: B548ZZA Ultrasonography of Superior Vena Cava, Guidance (ICD-10-PCS; 2023-01-19)
PROC: 0JH63XZ Insertion of Tunneled Vascular Access Device into Chest Subcutaneous Tissue and Fascia, Percutaneous Approach (ICD-10-PCS; 2023-01-19)
DX: N13.6 Pyonephrosis (principal); C85.93 Non-Hodgkin lymphoma, unspecified, intra-abdominal lymph nodes; E11.65 Type 2 diabetes mellitus with hyperglycemia; I10 Essential (primary) hypertension; R59.0 Localized enlarged lymph nodes; K21.9 Gastro-esophageal reflux disease without esophagitis; E78.5 Hyperlipidemia, unspecified; Z79.84 Long term (current) use of oral hypoglycemic drugs; Z79.899 Other long term (current) drug therapy; Z82.49 Family history of ischemic heart disease and other diseases of the circulatory system; Z83.3 Family history of diabetes mellitus; Z87.442 Personal history of urinary calculi
CPT/HCPCS: 10005; 36415; 71045; 74176; 74177; 74425; 76937; 77012; 80053; 81001; 82962; 83605; 83880; 84484; 85025; 85610; 85730; 86850; 86900; 86901; 87040; 87081; 87086; 93005; 96361; 96365; 96367; 96375; 99152; C1894; C9113; G0378; J0690; J0696; J1815; J1885; J1956; J2001; J2250; J2405; J7060

== ENCOUNTER 2023-03-30 14:04 | Inpatient (IN) | payer MEDICAID ==
[~2023-03-30] VITALS: Ht 162.6 cm; Wt 68.0 kg
[~2023-03-30 14:04] MED LIST changes: -CEPH500C PO; +MORP30TA5 PO; +NALO4SPR2 NAS
[2023-03-30] MEDS ORDERED: HYDROcodone-ACET 10/325MG TAB PO ONE (21:15)
[2023-03-30] MEDS ORDERED: NITROGLYCERIN 0.4 MG SL TAB SL PRN (21:45)
[2023-03-30] MEDS ORDERED: DOCUSATE SOD 100 MG CAP PO PRN (21:45)
[2023-03-30] MEDS ORDERED: MORPHINE SULFATE INJ 2 MG/ml SYRG IV PRN ×2 (21:45)
[2023-03-30] MEDS ORDERED: ACETAMINOPHEN 325 MG TAB PO PRN (21:45)
[2023-03-31 01:33] LABS: Urine Epithelial Cast None Seen /hpf (<5)
[2023-03-31 01:47] LABS: Urine Bacteria FEW /hpf (None Seen); Urine Blood 2+ /uL (Negative); Urine Clarity CLOUDY (Clear); Urine Color Yellow (Yellow); Urine Mucus FEW (None Seen); Urine Protein, UAD 2+ (Negative); Urine Specific Gravity 1.017 (1.001-1.035); Urine Urobilinogen Normal (Negative); Urine WBC 1000 /hpf (0 - 5); Urine WBC Clumps PRESENT /hpf (None Seen)
[2023-03-31 01:50] VITALS: O2SAT 94
[2023-03-31 06:38] LABS: Basophils # (auto) 0.1 10 ^3/uL (0-0.2); Basophils % (auto) 0.5 % (0.0-2.0); Eosinophils # (auto) 0.1 10 ^3/uL (0-0.8); Eosinophils % (auto) 0.6 % (0.0-7.0); Hematocrit 30.8 % (36.0-46.0); Hemoglobin 10.1 g/dL (12.2-16.2); Lymphocytes % (auto) 6.1 % (10.0-50.0); Mean Corpuscular Hemoglobin 29.7 pg (28.0-32.0); Mean Corpuscular Hgb Conc. 32.9 g/dL (32.0-36.0); Mean Corpuscular Volume 90.1 fL (80.0-100.0); Monocytes # (auto) 1.5 10 ^3/uL (0-1.3); Monocytes % (auto) 9.1 % (0.0-12.0); Neutrophils # (auto) 13.9 10 ^3/uL (1.6-8.6); Neutrophils % (auto) 83.7 % (37.0-80.0); Nucleated Red Blood Cells % 0.1 %; Red Blood Cells 3.42 10^6/uL (4.0-5.20); Red Cell Distribution Width 19.1 % (11.8-14.3); White Blood Cell 16.6 10^3/uL (4.4-10.8)
[2023-03-31 06:47] LABS: Alanine Aminotransferase 14 U/L (7-40); Albumin 3.6 g/dL (3.2-4.8); Alkaline Phosphatase 138 U/L (46-116); Anion Gap 8 (5-15); Aspartate Aminotransferase 12 U/L (13-40); Bilirubin, Total 0.2 mg/dL (0.2-1.0); Calcium 8.7 mg/dL (8.7-10.4); Carbon Dioxide 25 mmol/L (20-30); Chloride 107 mmol/L (98-107); Glucose 105 mg/dL (74-106); Potassium 3.8 mmol/L (3.5-5.1); Sodium 140 mmol/L (136-145)
[2023-03-31 06:56] LABS: BUN/Creatinine Ratio 7.5 (10.0-20.0); Blood Urea Nitrogen < 5 mg/dL (9-23)
[2023-03-31] MEDS: SODIUM CHLORIDE 0.9% 1,000 ML IV SCH ×3 (07:07→21:23)
[2023-03-31] MEDS ORDERED: DEXTROSE (50%) 50ML SYRG IV PRN (07:30)
[2023-03-31 07:45] VITALS: O2SAT 100
[2023-03-31] MEDS: cefTRIAXone 1GM/50ML D5W 50 ML IV SCH (09:07)
[2023-03-31] MEDS: ENOXAPARIN SOD 40 MG/0.4 ML SYRINGE SC SCH (09:54)
[2023-03-31] MEDS: InsuLIN REG 1unit/0.01ml Soln (100units/ml) SC SCH ×3 (11:30→21:25)
[2023-03-31] MEDS: ACCU-CHEK COMFORT CURVE STRIP VI SCH ×3 (11:32→21:25)
[2023-03-31 13:19] VITALS: BP 108/60; PULSE 74; RESP 18; TEMP 98.7; O2SAT 98
[2023-03-31 13:23] VITALS: BP 106/65; PULSE 99; RESP 17; TEMP 98.8; O2SAT 97
[2023-03-31 20:00] VITALS: PULSE 70; RESP 18; O2SAT 95
[2023-03-31] MEDS: HYDROcodone-ACET 5/325MG TAB PO PRN (21:56)
[2023-03-31 22:00] VITALS: BP 104/59; PULSE 83; RESP 17; TEMP 98.4; O2SAT 95
[2023-04-01] VITALS (7 sets, daily range): BP systolic 104–139; BP diastolic 61–91; PULSE 66–86; RESP 16–18; TEMP 97.5–98.2; O2SAT 95–99
[2023-04-01] MEDS: InsuLIN REG 1unit/0.01ml Soln (100units/ml) SC SCH ×4 (05:53→21:15)
[2023-04-01] MEDS: ACCU-CHEK COMFORT CURVE STRIP VI SCH ×4 (05:54→21:15)
[2023-04-01] MEDS: SODIUM CHLORIDE 0.9% 1,000 ML IV SCH ×2 (06:24→19:57)
[2023-04-01 07:28] LABS: Basophils # (auto) 0.1 10 ^3/uL (0-0.2); Basophils % (auto) 0.7 % (0.0-2.0); Eosinophils # (auto) 0.1 10 ^3/uL (0-0.8); Eosinophils % (auto) 1.4 % (0.0-7.0); Hematocrit 31.6 % (36.0-46.0); Hemoglobin 10.3 g/dL (12.2-16.2); Lymphocytes # (auto) 0.9 10 ^3/uL (0.4-5.4); Lymphocytes % (auto) 8.3 % (10.0-50.0); Mean Corpuscular Hgb Conc. 32.5 g/dL (32.0-36.0); Mean Corpuscular Volume 89.4 fL (80.0-100.0); Monocytes # (auto) 0.8 10 ^3/uL (0-1.3); Monocytes % (auto) 7.9 % (0.0-12.0); Neutrophils # (auto) 8.7 10 ^3/uL (1.6-8.6); Neutrophils % (auto) 81.7 % (37.0-80.0); Nucleated Red Blood Cells % 0.1 %; Red Blood Cells 3.54 10^6/uL (4.0-5.20); Red Cell Distribution Width 19.5 % (11.8-14.3); White Blood Cell 10.7 10^3/uL (4.4-10.8)
[2023-04-01 08:10] LABS: Alanine Aminotransferase 11 U/L (7-40); Albumin 3.6 g/dL (3.2-4.8); Alkaline Phosphatase 128 U/L (46-116); Anion Gap 5 (5-15); Aspartate Aminotransferase 15 U/L (13-40); Carbon Dioxide 27 mmol/L (20-30); Chloride 111 mmol/L (98-107); Glucose 107 mg/dL (74-106); Potassium 4.4 mmol/L (3.5-5.1); Sodium 143 mmol/L (136-145)
[2023-04-01 08:11] LABS: Bilirubin, Total 0.2 mg/dL (0.2-1.0); Total Protein 5.7 g/dL (5.7-8.2)
[2023-04-01 09:00] LABS: BUN/Creatinine Ratio 8.5 (10.0-20.0); Blood Urea Nitrogen < 5 mg/dL (9-23)
[2023-04-01] MEDS: ENOXAPARIN SOD 40 MG/0.4 ML SYRINGE SC SCH (09:55)
[2023-04-01] MEDS: cefTRIAXone 1GM/50ML D5W 50 ML IV SCH (09:55)
[2023-04-01] MEDS: HYDROcodone-ACET 5/325MG TAB PO PRN (21:17)
[2023-04-02] VITALS (12 sets, daily range): BP systolic 100–125; BP diastolic 61–79; PULSE 58–85; RESP 15–18; TEMP 97.2–98.6; O2SAT 94–99
[2023-04-02] MEDS: SODIUM CHLORIDE 0.9% 1,000 ML IV SCH ×2 (05:14→19:30)
[2023-04-02] MEDS: InsuLIN REG 1unit/0.01ml Soln (100units/ml) SC SCH ×4 (06:02→21:07)
[2023-04-02] MEDS: ACCU-CHEK COMFORT CURVE STRIP VI SCH ×4 (06:02→21:07)
[2023-04-02 08:17] LABS: INR 0.98 (0.9-1.15); Prothrombin Time 10.3 sec (9.3-11.8)
[2023-04-02] MEDS: ENOXAPARIN SOD 40 MG/0.4 ML SYRINGE SC SCH (10:00)
[2023-04-02] MEDS: cefTRIAXone 1GM/50ML D5W 50 ML IV SCH (11:38)
[2023-04-02] MEDS ORDERED: LIDOCAINE 2%HCL (LOCAL ANESTH.) INJ 20ML MDV ONE (14:03)
[2023-04-02] MEDS ORDERED: fentaNYL CITRATE 100 MCG/2 ML VL ONE (14:03)
[2023-04-02] MEDS ORDERED: MIDAZOLAM HCL 2MG/2ML 2ml VIAL (1mg/ml) ONE (14:03)
[2023-04-02] MEDS ORDERED: IODIXANOL 320MG/ML 100ML BTL IV ONE (14:06)
[2023-04-02] MEDS: LACTULOSE 20Gm/30ML SOLN PO SCH (18:01)
[2023-04-02] MEDS: HYDROcodone-ACET 5/325MG TAB PO PRN (19:32)
[2023-04-03 05:19] VITALS: BP 110/56; PULSE 71; RESP 18; TEMP 98.3; O2SAT 95
[2023-04-03] MEDS: InsuLIN REG 1unit/0.01ml Soln (100units/ml) SC SCH ×2 (06:27→11:30)
[2023-04-03] MEDS: ACCU-CHEK COMFORT CURVE STRIP VI SCH ×2 (06:27→11:22)
[2023-04-03] MEDS: SODIUM CHLORIDE 0.9% 1,000 ML IV SCH ×2 (06:44→14:45)
[2023-04-03 08:00] VITALS: PULSE 70; PULSE 83; RESP 16
[2023-04-03 08:56] VITALS: BP 110/64; PULSE 63; RESP 16; TEMP 97.8; O2SAT 95
[2023-04-03] MEDS: cefTRIAXone 1GM/50ML D5W 50 ML IV SCH (11:20)
[2023-04-03] MEDS: ENOXAPARIN SOD 40 MG/0.4 ML SYRINGE SC SCH (11:21)
[2023-04-03] MEDS: LACTULOSE 20Gm/30ML SOLN PO SCH (11:21)
[2023-04-03 13:00] VITALS: BP 102/59; PULSE 61; RESP 16; TEMP 97.9; O2SAT 97
[2023-04-03] MEDS ORDERED: BACDST PO (14:45)
[2023-04-03 17:00] VITALS: BP 94/51; PULSE 82; RESP 16; TEMP 98; O2SAT 95
== END 2023-04-03 18:30 | disposition home or self-care (01) | DRG 466 ==
LOC: ER 14:04 → TELE-CENTR 21:33 → TELE 21:33 → TELE-E-ADS 03-31 13:05 → TELE-CENTR 03-31 17:40
PROVIDERS: ADMIT Internal Medicine; ATTEND Internal Medicine
PROC: 0T25X0Z Change Drainage Device in Kidney, External Approach (ICD-10-PCS; principal; 2023-04-02)
PROC: 0T9780Z Drainage of Left Ureter with Drainage Device, Via Natural or Artificial Opening Endoscopic (ICD-10-PCS; 2023-04-02)
DX: T83.012A Breakdown (mechanical) of nephrostomy catheter, initial encounter (principal); C85.90 Non-Hodgkin lymphoma, unspecified, unspecified site; N13.6 Pyonephrosis; E11.9 Type 2 diabetes mellitus without complications; I10 Essential (primary) hypertension; D72.829 Elevated white blood cell count, unspecified; I25.10 Atherosclerotic heart disease of native coronary artery without angina pectoris; Z79.899 Other long term (current) drug therapy; Z79.84 Long term (current) use of oral hypoglycemic drugs; Z87.442 Personal history of urinary calculi; Z82.49 Family history of ischemic heart disease and other diseases of the circulatory system; Z83.3 Family history of diabetes mellitus; Y84.8 Other medical procedures as the cause of abnormal reaction of the patient, or of later complication, without mention of misadventure at the time of the procedure; Y92.89 Other specified places as the place of occurrence of the external cause
CPT/HCPCS: 36415; 74176; 80053; 81001; 82962; 83605; 83690; 85025; 85610; 85730; 86850; 86900; 86901; 87040; 87086; 99152; G0378; J2250; Q9967

== ENCOUNTER 2023-07-17 06:59 | Day surgery (SDC) | payer MEDICAID ==
[2023-07-17] VITALS (7 sets, daily range): BP systolic 100–124; BP diastolic 60–70; PULSE 63–77; RESP 11–15; TEMP 97.4; O2SAT 98–100
[~2023-07-17] VITALS: Ht 162.6 cm; Wt 65.8 kg
[~2023-07-17 06:59] MED LIST changes: -ASPI81CH74 PO; -ATOR20TA PO; -DICY10CA PO; -GABA-1308 PO; -GEMF600T PO; -HYDR-4798 PO; +ICOS1CAP OR; +METF-371 PO; -METF750T54 PO; -MORP30TA5 PO; -NALO4SPR2 NAS; -OMEG-20 PO; -OMEP20TA PO
[2023-07-17] MEDS ORDERED: MIDAZOLAM HCL 2MG/2ML 2ml VIAL (1mg/ml) ONE (08:51)
[2023-07-17] MEDS ORDERED: LIDOCAINE 2%HCL (LOCAL ANESTH.) INJ 10ml MDV ONE (08:51)
[2023-07-17] MEDS ORDERED: fentaNYL CITRATE 100 MCG/2 ML VL ONE (08:51)
[2023-07-17] MEDS ORDERED: IODIXANOL 320MG/ML 100ML BTL IV ONE (09:10)
== END 2023-07-17 12:00 | disposition home or self-care (01) ==
LOC: CATH 06:59
PROVIDERS: ATTEND Radiology Diagnostic Radiology
DX: T19.9XXA Foreign body in genitourinary tract, part unspecified, initial encounter (principal); F41.9 Anxiety disorder, unspecified; Z91.048 Other nonmedicinal substance allergy status; Z79.84 Long term (current) use of oral hypoglycemic drugs; Z83.3 Family history of diabetes mellitus; Z82.49 Family history of ischemic heart disease and other diseases of the circulatory system; Z79.899 Other long term (current) drug therapy; Z98.890 Other specified postprocedural states; W44.8XXA Other foreign body entering into or through a natural orifice, initial encounter
CPT/HCPCS: 50387; C1769; C2617; J1644; J2001; J2250; J3010; Q9967; 74425; 99152; 99153

== ENCOUNTER 2023-07-19 09:20 | Inpatient (IN) | payer MEDICAID ==
[~2023-07-19] VITALS: Ht 162.6 cm; Wt 74.0 kg
[2023-07-19] MEDS: ACETAMINOPHEN 325 MG TAB PO ONE (09:45)
[2023-07-19 09:55] VITALS: PULSE 100; RESP 12; O2SAT 99
[2023-07-19 10:26] LABS: Basophils # (auto) 0 10 ^3/uL (0-0.2); Basophils % (auto) 0.4 % (0.0-2.0); Eosinophils # (auto) 0 10 ^3/uL (0-0.8); Hematocrit 38.5 % (36.0-46.0); Hemoglobin 12.8 g/dL (12.2-16.2); Lymphocytes # (auto) 0.5 10 ^3/uL (0.4-5.4); Lymphocytes % (auto) 4.6 % (10.0-50.0); Mean Corpuscular Hemoglobin 30.8 pg (28.0-32.0); Mean Corpuscular Hgb Conc. 33.3 g/dL (32.0-36.0); Mean Corpuscular Volume 92.6 fL (80.0-100.0); Monocytes % (auto) 9.7 % (0.0-12.0); Neutrophils % (auto) 85.3 % (37.0-80.0); Red Blood Cells 4.15 10^6/uL (4.0-5.20); Red Cell Distribution Width 13.8 % (11.8-14.3); White Blood Cell 10.6 10^3/uL (4.4-10.8)
[2023-07-19 10:39] LABS: Alanine Aminotransferase 20 U/L (7-40); Albumin 4.6 g/dL (3.2-4.8); Alkaline Phosphatase 101 U/L (46-116); Anion Gap 6 (5-15); Aspartate Aminotransferase 17 U/L (13-40); BUN/Creatinine Ratio 17.7 (10.0-20.0); Blood Urea Nitrogen 14 mg/dL (9-23); Calcium 9.6 mg/dL (8.5-10.1); Carbon Dioxide 27 mmol/L (20-30); Chloride 99 mmol/L (98-107); Glucose 134 mg/dL (74-106); Potassium 3.6 mmol/L (3.5-5.1); Sodium 132 mmol/L (136-145)
[2023-07-19 10:40] LABS: Bilirubin, Total 0.4 mg/dL (0.2-1.0); Total Protein 7.6 g/dL (5.7-8.2)
[2023-07-19] MEDS: cefTRIAXone 1GM/50ML D5W 50 ML IV ONE (10:56)
[2023-07-19] MEDS: SODIUM CHLORIDE 0.9% 1,000 ML IV ONE ×2 (10:56)
[2023-07-19] MEDS: metroNIDAZOLE 500MG/100ML 100 ML IV ONE (11:40)
[2023-07-19 13:39] LABS: Urine Bacteria FEW /hpf (None Seen); Urine Blood 2+ /uL (Negative); Urine Clarity Clear (Clear); Urine Color Light-Yellow (Yellow); Urine Protein, UAD 1+ (Negative); Urine Urobilinogen Normal (Negative); Urine WBC 11 /hpf (0 - 5); Urine pH 6.5 (5.0-9.0)
[2023-07-19] MEDS: MORPHINE SULFATE INJ 2 MG/ml SYRG IV ONE (15:30)
[2023-07-19] MEDS: ONDANSETRON HCL 4 MG/2 ML VIAL IV ONE (15:30)
[2023-07-19] MEDS ORDERED: HYDROcodone-ACET 5/325MG TAB PO PRN (15:45)
[2023-07-19] MEDS ORDERED: MORPHINE SULFATE INJ 2 MG/ml SYRG IV PRN ×2 (15:45)
[2023-07-19] MEDS ORDERED: NITROGLYCERIN 0.4 MG SL TAB SL PRN (15:45)
[2023-07-19] MEDS ORDERED: DEXTROSE (50%) 50ML SYRG IV PRN (15:45)
[2023-07-19] MEDS: SODIUM CHLORIDE 0.9% 1,000 ML IV SCH (16:15)
[2023-07-19] MEDS: InsuLIN REG 1unit/0.01ml Soln (100units/ml) SC SCH ×2 (17:00→22:45)
[2023-07-19] MEDS: ACCU-CHEK COMFORT CURVE STRIP VI SCH (17:13)
[2023-07-19] MEDS: ACETAMINOPHEN 325 MG TAB PO PRN (17:17)
[2023-07-19 18:50] VITALS: BP 91/46; PULSE 108; RESP 20; TEMP 102; O2SAT 94
[2023-07-19 18:55] VITALS: BP 88/47; PULSE 108; RESP 14; TEMP 101.5; O2SAT 95
[2023-07-19 20:55] VITALS: BP 123/67; PULSE 108; RESP 14; TEMP 100.2; O2SAT 97
[2023-07-20] VITALS (9 sets, daily range): BP systolic 92–119; BP diastolic 46–63; PULSE 50–105; RESP 14–17; TEMP 98.2–100.4; O2SAT 91–100
[2023-07-20 07:34] LABS: Basophils # (auto) 0 10 ^3/uL (0-0.2); Basophils % (auto) 0.4 % (0.0-2.0); Eosinophils # (auto) 0 10 ^3/uL (0-0.8); Eosinophils % (auto) 0.1 % (0.0-7.0); Hematocrit 32.7 % (36.0-46.0); Hemoglobin 10.9 g/dL (12.2-16.2); Lymphocytes # (auto) 0.8 10 ^3/uL (0.4-5.4); Lymphocytes % (auto) 8.9 % (10.0-50.0); Mean Corpuscular Hemoglobin 31.5 pg (28.0-32.0); Mean Corpuscular Hgb Conc. 33.3 g/dL (32.0-36.0); Mean Corpuscular Volume 94.6 fL (80.0-100.0); Monocytes # (auto) 1.5 10 ^3/uL (0-1.3); Monocytes % (auto) 17.3 % (0.0-12.0); Neutrophils # (auto) 6.4 10 ^3/uL (1.6-8.6); Neutrophils % (auto) 73.3 % (37.0-80.0); Nucleated Red Blood Cells % 0.1 %; Red Blood Cells 3.46 10^6/uL (4.0-5.20); Red Cell Distribution Width 13.8 % (11.8-14.3); White Blood Cell 8.8 10^3/uL (4.4-10.8)
[2023-07-20 07:48] LABS: Alanine Aminotransferase 18 U/L (7-40); Alkaline Phosphatase 92 U/L (46-116); Anion Gap 7 (5-15); BUN/Creatinine Ratio 14.5 (10.0-20.0); Blood Urea Nitrogen 10 mg/dL (9-23); Calcium 8.9 mg/dL (8.5-10.1); Carbon Dioxide 25 mmol/L (20-30); Chloride 105 mmol/L (98-107); Glucose 97 mg/dL (74-106); Sodium 137 mmol/L (136-145)
[2023-07-20 07:50] LABS: Albumin 3.7 g/dL (3.2-4.8); Aspartate Aminotransferase 19 U/L (13-40); Bilirubin, Total 0.3 mg/dL (0.2-1.0); Total Protein 6.1 g/dL (5.7-8.2)
[2023-07-20] MEDS: ENOXAPARIN SOD 40 MG/0.4 ML SYRINGE SC SCH (08:59)
[2023-07-20] MEDS: cefTRIAXone 1GM/50ML D5W 50 ML IV SCH (08:59)
[2023-07-20] MEDS: PANTOPRAZOLE 40 MG TAB PO SCH (09:00)
[2023-07-20] MEDS: metFORMIN HYDROCHLORIDE 850 MG TAB PO SCH (09:00)
[2023-07-20] MEDS: CHOLECALCIFEROL (VITD3) 1,000UNIT=25mCg TAB PO SCH (09:00)
[2023-07-20] MEDS ORDERED: PATIENTS OWN MEDICATION (Cholecalciferol (Vitamin D3) 2,000 UNIT) PO SCH (10:00)
[2023-07-21] VITALS (8 sets, daily range): BP systolic 100–117; BP diastolic 59–71; PULSE 68–98; RESP 14–18; TEMP 98–98.8; O2SAT 95–98
[2023-07-21 06:01] LABS: Anion Gap 6 (5-15); Carbon Dioxide 27 mmol/L (20-30); Chloride 107 mmol/L (98-107); Potassium 4.1 mmol/L (3.5-5.1); Sodium 140 mmol/L (136-145)
[2023-07-21 06:03] LABS: Calcium 8.9 mg/dL (8.5-10.1)
[2023-07-21 06:07] LABS: Glucose 85 mg/dL (74-106)
[2023-07-21 06:33] LABS: Hematocrit 32.3 % (36.0-46.0); Hemoglobin 10.7 g/dL (12.2-16.2); Mean Corpuscular Hgb Conc. 33.3 g/dL (32.0-36.0); Mean Corpuscular Volume 93.3 fL (80.0-100.0); Red Blood Cells 3.46 10^6/uL (4.0-5.20); Red Cell Distribution Width 13.7 % (11.8-14.3); White Blood Cell 6.3 10^3/uL (4.4-10.8)
[2023-07-21 06:36] LABS: Band Neutrophils % (manual) 0; Basophils % (manual) 0 (0.0-2.0); Blast Cells 0; Metamyelocytes % 0; Myelocytes % 0; Promyelocytes % 0; Reactive Lymphocytes 0
[2023-07-21 07:42] LABS: BUN/Creatinine Ratio 13.5 (10.0-20.0); Blood Urea Nitrogen 10 mg/dL (9-23)
[2023-07-21 08:22] LABS: Eosinophils % (manual) 2 (0-7); Lymphocytes % (manual) 13 (10.0-50.0); Monocytes % (manual) 13 (0-12); Platelet Estimate Adequate
[2023-07-22 01:00] VITALS: BP 108/63; PULSE 77; RESP 18; TEMP 98.1; O2SAT 97
[2023-07-22 05:00] VITALS: BP 124/66; PULSE 65; RESP 18; TEMP 98.1; O2SAT 97
[2023-07-22 09:00] VITALS: BP 118/69; PULSE 63; RESP 16; TEMP 97.8; O2SAT 96
[2023-07-22] MEDS ORDERED: AUG875T PO (11:37)
[2023-07-22 13:00] VITALS: BP 114/67; PULSE 62; RESP 16; TEMP 98.8; O2SAT 97
== END 2023-07-22 14:45 | disposition home or self-care (01) | DRG 466 ==
LOC: ER 09:20 → OVERFLOW 15:35 → CENTRAL 18:17
PROVIDERS: ADMIT Nurse Practitioner; ATTEND Nurse Practitioner
DX: T83.512A Infection and inflammatory reaction due to nephrostomy catheter, initial encounter (principal); A41.9 Sepsis, unspecified organism; T83.84XA Pain due to genitourinary prosthetic devices, implants and grafts, initial encounter; N12 Tubulo-interstitial nephritis, not specified as acute or chronic; C85.90 Non-Hodgkin lymphoma, unspecified, unspecified site; E11.65 Type 2 diabetes mellitus with hyperglycemia; I25.10 Atherosclerotic heart disease of native coronary artery without angina pectoris; I10 Essential (primary) hypertension; F41.9 Anxiety disorder, unspecified; B95.2 Enterococcus as the cause of diseases classified elsewhere; Y83.8 Other surgical procedures as the cause of abnormal reaction of the patient, or of later complication, without mention of misadventure at the time of the procedure; Z83.3 Family history of diabetes mellitus; Z82.49 Family history of ischemic heart disease and other diseases of the circulatory system; Z91.048 Other nonmedicinal substance allergy status; Z79.1 Long term (current) use of non-steroidal anti-inflammatories (NSAID); Z79.899 Other long term (current) drug therapy; Y92.89 Other specified places as the place of occurrence of the external cause
CPT/HCPCS: 36415; 80048; 80053; 81001; 82962; 83605; 85007; 85025; 85027; 87040; 87086; 87088; 87186; G0378; J1815; J2405; J3490

== ENCOUNTER 2024-03-21 17:54 | Inpatient (IN) | payer MEDICAID ==
[~2024-03-21] VITALS: Ht 154.9 cm; Wt 81.4 kg
[~2024-03-21 17:54] MED LIST changes: +AUG875T PO; -FEXO-42 PO
--- NOTE | 2024-03-21 19:26 | DVH ---
EXAMINATION: AP portable chest radiograph CLINICAL HISTORY: fever COMPARISON: At the time of review, no prior studies are available for comparison. FINDINGS: Right chest infusion port catheter noted. Mild diffuse interstitial prominence. Streaky opacity in the peripheral left lung base. No lobar cons olidation. No definite pleural effusion or pneumothorax. The cardiomediastinal silhouette appears wit hin normal limits given technique. IMPRESSION: Interstitial prominence is relatively nonspecific but can be seen with edema, reactive airway changes as well as atypical / viral infection. Please correlate clinically. Questionable developing infiltra te versus atelectasis/ scarring in the peripheral left lower lung field.
--- NOTE | 2024-03-21 19:40 | ED.PDOC ---
History of Present Illness HPI Comments 68F presents to the ER w/ no prior Hx associated to the c/c of Body aches. Pt reports on having body aches and a fever for the past 2 days. Pt was also tachycardic. PMHx of DM, Lymphoma, Anxiety, High Lipids, Cancer and HTN. Denies chills, N/V/D, SOB, or other associated symptom's, modifiers, or recent injuries or sick contact at this time. Chief Complaint: General Weakness Time Seen by MD: 19:05 Primary Care Provider: ARAM Reviewed Notes: Nurses Notes, Medications, Allergies Allergies: Uncoded Allergies: tape (Allergy, Intermediate, 03/31/23) Home Meds Active Scripts Amoxicillin & Pot Clavulanate (AUGMENTIN TABLET) 875 Mg Tb, 875 MG PO BID for 7 Days, #14 TAB Prov:KURT LEON CONTINUITY DIRECTOR 07/22/23 Ondansetron Odt 4MG Tab (ZOFRAN PO) 4 Mg Tb, 4 MG PO TID for 7 Days, #21 TAB ODT TAB-DISSOLVE IN MOUTH, THEN SWALLOW Prov:SONIA CARVER MD 12/14/22 Reported Medications Epa Ethyl Monique (VASCEPA) 1 Gm Cap, 1 GM OR DAILY, CAP 07/16/23 Metformin Hydrochloride (Metformin Hcl) 850 Mg Tab, 850 MG PO DAILY for 30 Days, MG 07/16/23 Ibuprofen (Ibuprofen) 800 Mg Tab, 800 MG PO TID, MG 09/05/18 Cholecalciferol (VITAMIN D3) 2,000 Unit Tab, 2000 UNIT PO DAILY, TAB 09/05/18 Information Source: Patient Mode of Arrival: Ambulatory Severity: Moderate Timing: Days Duration: Since onset, Days Prehospital treatment: None Past Medical History PAST MEDICAL HISTORY: Anxiety, Cancer, DM, High Lipids, HTN Past Medical History (Other): Lymphoma Surgical History: Denies all surgeries MANAGER WINTER History: No Pertinent MANAGER WINTER History Family History Family History: Reviewed,noncontributory to illness, Unknown, Family hx of HTN Social History Smoker: Non-Smoker Alcohol: Denies ETOH Use Drugs: Denies Drug Use Lives In: Home Constitutional: reports: fever, others (Body aches); denies: chills, diaphoresis, fatigue, malaise, sweats, weakness EENTM: denies: blurred vision, double vision, ear bleeding, ear discharge, ear drainage, ear pain, ear ringing, eye pain, eye redness, hearing loss, mouth pain, mouth swelling, nasal discharge, nose bleeding, nose congestion, nose pain, photophobia, tearing, throat pain, throat swelling, voice changes, others Respiratory: denies: cough, hemoptysis, orthopnea, SOB at rest, shortness of breath, SOB with excertion, stridor, wheezing, others Cardiovascular: denies: chest pain, dizzy spells, diaphoresis, Dyspnea on exertion, edema, irregular heart beat, left arm pain, lightheadedness, palpitations, PND, syncope, others Gastrointestinal: denies: abdomen distended, abdominal pain, blood streaked bowels, constipated, diarrhea, dysphagia, difficulty swallowing, hematemesis, melena, nausea, poor appetite, poor fluid intake, rectal bleeding, rectal pain, vomiting, others Genitourinary: denies: abnormal vagina bleeding, burning, dyspareunia, dysuria, flank pain, frequency, hematuria, incontinence, pain, , vagina discharge, urgency, others Neurological: denies: dizziness, fainting, headache, left sided numbness, left sided weakness, numbness, paresthesia, pre-existing deficit, right sided numbness, right sided weakness, seizure, speech problems, tingling, tremors, weakness, others Musculoskeletal: denies: back pain, gout, joint pain, joint swelling, muscle pain, muscle stiffness, neck pain, others Integumetry: denies: bruises, change in color, change in hair/nails, dryness, laceration, lesions, lumps, rash, wounds, others Allergic/Immunocompromised: denies: Difficulty Healing, Frequent Infections, Hives, Itching, others Hematologic/Lymphatic: denies: anemia, blood clots, easy bleeding, easy bruising, swollen glands, others Endocrine: denies: excessive hunger, excessive sweating, excessive thirst, excessive urination, flushing, intolerance to cold, intolerance to heat, unexplained weight gain, unexplained weight loss, others Psychiatric: denies: anxiety, bipolar disorder, depression, hopeless, panic disorder, schizophrenia, sleepless, suicidal, others All Other Systems: Reviewed and Negative Physical Exam Exam Comments Tachycardic General Appearance: No Apparent Distress, Normal HEENT: Normal ENT Inspection, Pharynx Normal, TMs Normal Neck: Full Range of Motion, Non-Tender, Normal, Normal Inspection Respiratory: Chest Non-Tender, Lungs Clear, No Accessory Muscle Use, No Respiratory Distress, Normal Breath Sounds Cardiovascular: No Edema, No JVD, No Murmur, No Gallop, Normal Peripheral Pulses, Regular Rate/Rhythm, Tachycardia Breast Exam: Deferred Gastrointestinal: No Organomegaly, Non Tender, No Pulsatile Mass, Normal Bowel Sounds, Soft Genitalia: Deferred Pelvic: Deferred Rectal: Deferred Extremities: No calf tenderness, Normal capillary refill, Normal inspection, Normal range of motion, Non-tender, No pedal edema Musculoskeletal : Apperance: Normal Neurologic: Alert, sap gatherer II-XII nml as Tested, No Motor Deficits, Normal Affect, Normal Mood, No Sensory Deficits Cerebellar Function: Normal Reflexes: Normal Skin: Dry, Normal Color, Warm Lymphatic: No Adenopathy Was a procedure done? Was a procedure done?: No Differential Dx Considerations may include: pneumonia, viral syndrome, sepsis, sirs, uti X-Ray, Labs, Meds, VS Vital Signs Date Time Temp Pulse Resp B/P (MAP) Pulse Ox O2 Delivery O2 Flow Rate FiO2 03/21/24 18:48 101.8 107 20 120/67 (84) 96 03/21/24 18:47 101 Lab Test 03/21/24 19:45 03/21/24 18:52 Range/Units White Blood Count Pending Red Blood Count Pending Hemoglobin Pending Hematocrit Pending Mean Corpuscular Volume Pending Mean Corpuscular Hemoglobin Pending Mean Corpuscular Hemoglobin Concent Pending Red Cell Distribution Width Pending Platelet Count Pending Mean Platelet Volume Pending Neutrophils (%) (Auto) Pending Lymphocytes (%) (Auto) Pending Monocytes (%) (Auto) Pending Basophils (%) (Auto) Pending Neutrophils # (Auto) Pending Lymphocytes # (Auto) Pending Monocytes # (Auto) Pending Sodium Level Pending Potassium Level Pending Chloride Level Pending Carbon Dioxide Level Pending Anion Gap Pending Blood Urea Nitrogen Pending Creatinine Pending Glomerular Filtration Rate Calc Pending BUN/Creatinine Ratio Pending Serum Glucose Pending Lactic Acid Level Pending Calcium Level Pending Troponin I High Sensitivity Pending Urine Color Yellow Yellow Urine Clarity Clear Clear Urine pH 6.5 5.0-9.0 Urine Specific [place] 1.020 1.001-1.035 Urine Protein Trace H Negative Urine Ketones Negative Negative Urine Blood 2+ H Negative /uL Urine Nitrite Negative Negative Urine Bilirubin Negative Negative Urine Urobilinogen Normal Negative mg/dL Urine Leukocyte Esterase Trace Negative /uL Urine RBC 22 0 - 4 /hpf Urine WBC 2 0 - 5 /hpf Urine Squamous Epithelial Cells Few <5 /hpf Urine Bacteria Few H None Seen /hpf Urine Mucus Few None Seen Urine Glucose Normal Normal mg/dL Time of 1ST Reevaluation: 19:35 Reevaluation 1ST: Unchanged Time of 2ND Reevaluation: 20:08 Reevaluation 2ND: Improved Patient Education/Counseling: Diagnosis, Treatment, Prognosis, Need For Follow Up Family Education/Counseling: No Family Present Additional Information - I reviewed the following notes from patient's past medical encounters:07/19/23 - The following tests were ordered, and results were reviewed by me: PHA, LAB, XY and EKG - I reviewed and agreed with the following test results read by other provider: X-ray - I discussed treatments and results with medical personnel and: (consultants, family) pt remains symptomatic. she has a source of infection and elements to qualify for sepsis. she will be admitted for pneumonia with sepsis Sepsis Sepsis Reasesment Focused Exam Sepsis focused exam: focus exam completed, time: (809pm- pt remains stable but still feels unwell) Departure 1 Departure Time of Disposition: 20:10 Impression: Primary Impression: Pneumonia Qualified Codes: J18.9 - Pneumonia, unspecified organism Additional Impression: Sepsis Qualified Codes: A41.9 - Sepsis, unspecified organism Disposition: ADMITTED INPATIENT Admit to: Med Surg Condition: Stable Discharged With: Self Critical Care Note Critical Care Time?: Yes (55 min-critical care time only) Critical care comment: due to concerns for patient's condition deteriorating, the care required my highest level of attention and readiness to intervene. i assessed the patient's condition, ordered the proper tests and treatments, reassessed for response and reviewed the results. i communicated with medical personnel and formulated a plan of care. total critical care time does not include any procedures Stability Stability form required: No I personally scribed for ANABELLA TOLBERT MD ([email or web address]) on 03/21/24 at 19:40. Electronically submitted by Alden Terry ([email or web address]). ANABELLA TOLBERT MD Mar 21, 2024 19:40
[2024-03-21 19:57] LABS: Urine Bacteria FEW /hpf (None Seen); Urine Blood 2+ /uL (Negative); Urine Clarity Clear (Clear); Urine Color Yellow (Yellow); Urine Mucus FEW (None Seen); Urine Protein, UAD TRACE (Negative); Urine Squamous Epithelial Cell FEW /hpf (<5); Urine Urobilinogen Normal (Negative); Urine WBC 2 /hpf (0 - 5); Urine pH 6.5 (5.0-9.0)
[2024-03-21 20:08] LABS: Basophils # (auto) 0 10 ^3/uL (0-0.2); Basophils % (auto) 0.3 % (0.0-2.0); Eosinophils # (auto) 0 10 ^3/uL (0-0.8); Hematocrit 38.8 % (36.0-46.0); Hemoglobin 13.2 g/dL (12.2-16.2); Lymphocytes # (auto) 0.4 10 ^3/uL (0.4-5.4); Lymphocytes % (auto) 8.7 % (10.0-50.0); Mean Corpuscular Hemoglobin 32.4 pg (28.0-32.0); Mean Corpuscular Hgb Conc. 34.2 g/dL (32.0-36.0); Mean Corpuscular Volume 94.9 fL (80.0-100.0); Monocytes # (auto) 0.3 10 ^3/uL (0-1.3); Monocytes % (auto) 5.8 % (0.0-12.0); Neutrophils # (auto) 4.2 10 ^3/uL (1.6-8.6); Neutrophils % (auto) 85.2 % (37.0-80.0); Platelet Count (auto) 204 10^3/uL (140-450); Red Blood Cells 4.09 10^6/uL (4.0-5.20); Red Cell Distribution Width 13.9 % (11.8-14.3)
[2024-03-21 20:15] LABS: Chloride 99 mmol/L (98-107); Potassium 4.3 mmol/L (3.5-5.1)
[2024-03-21 20:16] LABS: Anion Gap 9 (5-15); Calcium 9.5 mg/dL (8.7-10.4); Carbon Dioxide 25 mmol/L (20-31)
[2024-03-21 20:21] LABS: Blood Urea Nitrogen 15 mg/dL (9-23)
[2024-03-21 20:22] LABS: Glucose 180 mg/dL (74-106); Sodium 133 mmol/L (136-145)
[2024-03-21 20:24] LABS: Lactic Acid w/Reflex 2.8 mmol/L (0.4-2.0)
[2024-03-21] MEDS: ACETAMINOPHEN 325 MG TAB PO ONE ×2 (20:24→20:36)
[2024-03-21] MEDS: SODIUM CHLORIDE 0.9% 1,450 ML IV ONE (20:39)
[2024-03-21] MEDS: cefTRIAXone SOD 1,000 MG VL IM ONE (20:41)
[2024-03-21] MEDS: AZITHROMYCIN 500MG/ 250ML 250 ML IV ONE (20:41)
[2024-03-21 21:00] VITALS: PULSE 98; RESP 16; O2SAT 94
[2024-03-21 22:10] VITALS: PULSE 81; RESP 18; O2SAT 100
[2024-03-21] MEDS: PIPERACILLIN-TAZOB 3.375GM 100 ML IV SCH (23:10)
[2024-03-22] VITALS (8 sets, daily range): BP systolic 98–114; BP diastolic 50–68; PULSE 62–95; RESP 18–20; TEMP 98.4–102.2; O2SAT 93–97
[2024-03-22] MEDS ORDERED: DEXTROSE (50%) 50ML SYRG IV PRN (01:00)
[2024-03-22 01:47] LABS: Basophils # (auto) 0 10 ^3/uL (0-0.2); Basophils % (auto) 0.3 % (0.0-2.0); Eosinophils # (auto) 0 10 ^3/uL (0-0.8); Hematocrit 38.3 % (36.0-46.0); Hemoglobin 12.8 g/dL (12.2-16.2); Lymphocytes # (auto) 0.5 10 ^3/uL (0.4-5.4); Lymphocytes % (auto) 13.2 % (10.0-50.0); Mean Corpuscular Hemoglobin 31.8 pg (28.0-32.0); Mean Corpuscular Hgb Conc. 33.5 g/dL (32.0-36.0); Mean Corpuscular Volume 94.8 fL (80.0-100.0); Monocytes # (auto) 0.3 10 ^3/uL (0-1.3); Monocytes % (auto) 6.7 % (0.0-12.0); Neutrophils % (auto) 79.8 % (37.0-80.0); Nucleated Red Blood Cells % 0.1 %; Platelet Count (auto) 192 10^3/uL (140-450); Red Blood Cells 4.04 10^6/uL (4.0-5.20); White Blood Cell 3.8 10^3/uL (4.4-10.8)
[2024-03-22 01:51] LABS: Alanine Aminotransferase 27 U/L (7-40); Albumin 4.1 g/dL (3.2-4.8); Alkaline Phosphatase 110 U/L (46-116); Anion Gap 7 (5-15); Aspartate Aminotransferase 21 U/L (13-40); BUN/Creatinine Ratio 14.3 (10.0-20.0); Bilirubin, Total 0.3 mg/dL (0.2-1.0); Blood Urea Nitrogen 13 mg/dL (9-23); Calcium 9.3 mg/dL (8.7-10.4); Carbon Dioxide 28 mmol/L (20-31); Chloride 102 mmol/L (98-107); Glucose 158 mg/dL (74-106); Potassium 4.4 mmol/L (3.5-5.1); Sodium 137 mmol/L (136-145); Total Protein 6.8 g/dL (5.7-8.2)
[2024-03-22 01:53] LABS: COVID19 ANTIGEN SOFIA FIA NEGATIVE (NEGATIVE); Rapid Influenza A Negative (Negative); Rapid Influenza B Negative (Negative)
[2024-03-22] MEDS: SODIUM CHLORIDE 0.9% 1,000 ML IV SCH (01:55)
[2024-03-22 01:59] LABS: Lactic Acid w/Reflex 2.1 mmol/L (0.4-2.0)
[2024-03-22] MEDS ORDERED: FLUT1SPR5 (03:59)
[2024-03-22] MEDS ORDERED: MET25T PO (03:59)
[2024-03-22] MEDS ORDERED: ASHW125C PO (03:59)
[2024-03-22] MEDS: ACETAMINOPHEN 325 MG TAB PO ONE (04:38)
[2024-03-22] MEDS ORDERED: PIPERACILLIN-TAZOB 3.375GM 100 ML IV SCH (06:00)
[2024-03-22] MEDS: ACCU-CHEK COMFORT CURVE STRIP VI SCH (06:27)
[2024-03-22] MEDS: InsuLIN REG 1unit/0.01ml Soln (100units/ml) SC SCH (06:30)
--- NOTE | 2024-03-22 06:52 | DVHHPRES ---
History of Present Illness Resident Creating Document: VIJI HENDRICKS RESIDENT History of Present Illness Patient was a 68-year-old female with a past medical history are described below came to the ED with a chief complaint of generalized weakness for the last 5 days. Patient reports that since about 5 days ago she started to have body aches with the associated cough 2 days which was mostly dry. Had headache, lethargy and decreased appetite. Patient also reported dizziness when she tried to get up from the bed. Past medical history: Follicular lymphoma diagnosed in 2022, finished with the chemotherapy in July 2023 type 2 diabetes mellitus, hyperlipidemia, heart failure with moderately reduced ejection( echo in 2019 shows LVEF 45% ) Past surgical history: Right rotator cuff injury, chemotherapy catheter Social history: Patient lives alone and denies smoking, alcohol, drug use Home medications: Metformin 850 mg q.d., metoprolol tartrate 25 mg q.d., Vascepa 1 g daily Review of Systems Review of Systems Patient denied shortness of breath, chest pain, dizziness Reported generalized body ache and weakness Has mild cough, dry Allergies: Uncoded Allergies: tape (Allergy, Intermediate, 03/31/23) Medications Current Medications Medications Dose Ordered Sig/Sadia Route Start Time Stop Time Status Last Admin Dose Admin Piperacillin Sod/ Tazobactam Sod 100 ml @ 33.3 mls/hr Q8HR IV 03/21/24 22:00 03/22/24 05:04 33.3 MLS/HR Diagnostic Test (Pha) 1 strip ACHS 03/22/24 07:00 03/22/24 06:27 1 STRIP Insulin Human Regular ACHS SC 03/22/24 07:00 03/22/24 06:30 2 UNITS Dextrose 50 ml UD PRN IV 03/22/24 01:00 Sodium Chloride 1,000 ml @ 100 mls/hr Q10H IV 03/22/24 01:00 03/22/24 01:55 100 MLS/HR Azithromycin 250 ml @ 125 mls/hr DAILY@2100 IV 03/22/24 21:00 Exam Vital Signs Vital Signs Date Time Temp Pulse Resp B/P (MAP) Pulse Ox O2 Delivery O2 Flow Rate FiO2 03/22/24 05:00 98.6 89 18 98/50 (66) 97 98.6 03/22/24 02:56 Room Air* 0 N/A Nasal Cannula* Exam Physical Examination Constitutional: Patient was alert and oriented to time, place and person and does not appear to be in any acute distress. Gen - no pallor, no icterus, no cyanosis, no clubbing, no LAD, no edema . Skin - Patients skin is warm and dry. HEENT - normocephalic, atraumatic, moist mucous membranes. Neck - full ROM, no LAD, no JVD Pulmonary - B/L equal breath sounds. no crackles , no wheezing cardiovascular - normal S1,S2 heard. no murmurs heard. peripheral pulses normal radial 2+, pedal 2+. GI - soft abdomen without tenderness to palpation. no hepatospleenomegaly. Bowel sounds normoactive Neurological - Bilateral upper extremity strength 5/5, bilateral lower extremity strength 5/5, no facial droop, normal speech, no tremor, no sensory deficiets. Labs/Xrays Labs Test 03/22/24 01:23 03/21/24 23:50 03/21/24 18:52 Range/Units White Blood Count 3.8 L 4.4-10.8 10^3/uL Red Blood Count 4.04 4.0-5.20 10^6/uL Hemoglobin 12.8 12.2-16.2 g/dL Hematocrit 38.3 36.0-46.0 % Mean Corpuscular Volume 94.8 80.0-100.0 fL Mean Corpuscular Hemoglobin 31.8 28.0-32.0 pg Mean Corpuscular Hemoglobin Concent 33.5 32.0-36.0 g/dL Red Cell Distribution Width 14.0 11.8-14.3 % Platelet Count 192 140-450 10^3/uL Mean Platelet Volume 7.6 6.9-10.8 fL Neutrophils (%) (Auto) 79.8 37.0-80.0 % Lymphocytes (%) (Auto) 13.2 10.0-50.0 % Monocytes (%) (Auto) 6.7 0.0-12.0 % Eosinophils (%) (Auto) 0.0 0.0-7.0 % Basophils (%) (Auto) 0.3 0.0-2.0 % Neutrophils # (Auto) 3.0 1.6-8.6 10 ^3/uL Lymphocytes # (Auto) 0.5 0.4-5.4 10 ^3/uL Monocytes # (Auto) 0.3 0-1.3 10 ^3/uL Eosinophils # (Auto) 0 0-0.8 10 ^3/uL Basophils # (Auto) 0 0-0.2 10 ^3/uL Nucleated Red Blood Cells 0.1 % Sodium Level 137 136-145 mmol/L Potassium Level 4.4 3.5-5.1 mmol/L Chloride Level 102 98-107 mmol/L Carbon Dioxide Level 28 20-31 mmol/L Anion Gap 7 5-15 Blood Urea Nitrogen 13 9-23 mg/dL Creatinine 0.91 0.550-1.02 mg/dL Glomerular Filtration Rate Calc 70 >90 mL/min BUN/Creatinine Ratio 14.3 10.0-20.0 Serum Glucose 158 H 74-106 mg/dL Hemoglobin A1c 6.7 H <5.7 % A1C Lactic Acid Level 2.1 *H 0.4-2.0 mmol/L Calcium Level 9.3 8.7-10.4 mg/dL Total Bilirubin 0.3 0.2-1.0 mg/dL Aspartate Amino Transferase (AST) 21 13-40 U/L Alanine Aminotransferase (ALT) 27 7-40 U/L Alkaline Phosphatase 110 46-116 U/L Troponin I High Sensitivity 12 </=34 ng/L B-Type Natriuretic Peptide 40.63 0-100 pg/mL Total Protein 6.8 5.7-8.2 g/dL Albumin 4.1 3.2-4.8 g/dL Thyroid Stimulating Hormone (TSH) 2.79 0.55-4.78 uIU/mL Influenza Type A Antigen Negative Negative Influenza Type B Antigen Negative Negative SARS-CoV-2 Antigen (Rapid) Negative NEGATIVE Urine Color Yellow Yellow Urine Clarity Clear Clear Urine pH 6.5 5.0-9.0 Urine Specific [place] 1.020 1.001-1.035 Urine Protein Trace H Negative Urine Ketones Negative Negative Urine Blood 2+ H Negative /uL Urine Nitrite Negative Negative Urine Bilirubin Negative Negative Urine Urobilinogen Normal Negative mg/dL Urine Leukocyte Esterase Trace Negative /uL Urine RBC 22 0 - 4 /hpf Urine WBC 2 0 - 5 /hpf Urine Squamous Epithelial Cells Few <5 /hpf Urine Bacteria Few H None Seen /hpf Urine Mucus Few None Seen Urine Glucose Normal Normal mg/dL Assessment/Plan Assessment/Plan Sepsis likely due to pneumonia Lactic acidosis Community-acquired pneumonia likely ?viral ?Atypical ?Gram+/- bacteria ? UTI - WBC 5->3.8 with left shift - COVID and influenza pending - chest x-ray shows Interstitial prominence is relatively nonspecific but can be seen with edema, reactive airway changes as well as atypical / viral infection. Questionable developing infiltrate versus atelectasis/ scarring in the peripheral left lower lung field. - patient given 1.5 L bolus - continued on NS at 100 mL/hour - on Zosyn 3.375 g q.8 hour and azithromycin 500 mg q.d. IV - bacteria culture pending - MRSA pending - respiratory sputum culture pending - urine culture pending - monitor vitals, BMP ? Acute on chronic heart failure with reduced ejection fraction - echo from 2019 shows LVEF 45% - new echo pending - home medication metoprolol held d/t sepsis Uncontrolled Type 2 diabetes mellitus with hyperglycemia - HbA1c 6.7% -started on mild insulin sliding scale ACHS Goals of care discussed with the patient and for over 29 minutes. Full code Plan discussed with Dr. Banks Plan discussed with: Patient My Orders Orders - VIJI HENDRICKS RESIDENT Procedure Category Date Status Time Admit ADMIT 03/22/24 Transmitted 00:46 Oxygen By Nasal RT 03/22/24 Transmitted Cannula 00:46 Stat Ekg For Chest PEREZ 03/22/24 In Process Pain 00:46 Notify Of Changes PEREZ 03/22/24 In Process From Base 00:46 Breakfast Manager For PEREZ 03/22/24 In Process 24 Hours 00:46 Emergency Dysrhythmia PEREZ 03/22/24 In Process Protocol 00:46 Covid19 Antigen [facility] LAB 03/22/24 Logged Rapid Influenza A&B LAB 03/22/24 Logged 00:46 Mrsa Screen ASHLYN 03/22/24 In Process 00:46 Respiratory Culture ASHLYN 03/22/24 Logged W/ Gs 00:46 Drug Screen LAB 03/22/24 Logged 00:46 Glucose Blood PHA 03/22/24 In Process (Accu-Chek Comfort 07:00 Insulin R (Human) PHA 03/22/24 In Process (Insulin R) 07:00 Dextrose 50% Syringe PHA 03/22/24 In Process 01:00 Echo 2d Mode Cardiac US 03/22/24 Logged DOP 00:46 Sodium Chloride 0.9% PHA 03/22/24 In Process 01:00 Azithromycin 500mg/ PHA 03/22/24 In Process 250ml (Zithromax 50 21:00 Consistent DIET 03/22/24 Transmitted Carb([facility])Diabetes Breakfast Code Status CODE 03/22/24 Transmitted 00:55 Lactic Acid W/ Reflex LAB 03/22/24 Logged Order 05:26 Ct Ab Pel Wo Con-No CT 03/22/24 Logged Oral Or Iv 05:27 Urine Bacterial ASHLYN 03/22/24 Uncollected Culture 05:28 Date of Service: Mar 22, 2024 Billing Provider: SHAYLA BANKS MD Common Visit Codes: [id number] INP/OBS CARE (HIGH) Secondary Visit Codes: [id number] CARE PLAN 30 MINUTES VIJI HENDRICKS RESIDENT Mar 22, 2024 06:52 SHAYLA BANKS MD Mar 24, 2024 17:12
--- NOTE | 2024-03-22 09:33 | DVHPNRES ---
Progress Note Date Seen: Mar 22, 2024 Resident Creating Document: KAYLEE HIDALGO RESIDENT Has the PT tested + for MRSA If YES, has PT been informed?: No Medical Necessity Reason Pt with a Central, PICC or Fol: No Subjective Review of Systems Patient feels better than admission Patient reports: No new complaints Objective vital signs Vital Sign Date Time Temp Pulse Resp B/P (MAP) Pulse Ox O2 Delivery O2 Flow Rate FiO2 03/22/24 05:00 98.6 89 18 98/50 (66) 97 98.6 03/22/24 02:56 Room Air* 0 N/A Nasal Cannula* Total Intake and Output 03/21/24 03/21/24 03/22/24 15:00 23:00 07:00 Intake Total 250 ml 1550 ml Balance 250 ml 1550 ml medications Current Medications Medications Dose Ordered Sig/Sadia Route Start Time Stop Time Status Last Admin Dose Admin Piperacillin Sod/ Tazobactam Sod 100 ml @ 33.3 mls/hr Q8HR IV 03/21/24 22:00 03/22/24 05:04 33.3 MLS/HR Diagnostic Test (Pha) 1 strip ACHS 03/22/24 07:00 03/22/24 06:27 1 STRIP Insulin Human Regular ACHS SC 03/22/24 07:00 03/22/24 06:30 2 UNITS Dextrose 50 ml UD PRN IV 03/22/24 01:00 Sodium Chloride 1,000 ml @ 100 mls/hr Q10H IV 03/22/24 01:00 03/22/24 01:55 100 MLS/HR Azithromycin 250 ml @ 125 mls/hr DAILY@2100 IV 03/22/24 21:00 Examination Constitutional: Patient was alert and oriented to time, place and person and does not appear to be in any acute distress. Gen - no pallor, no icterus, no cyanosis, no clubbing, no LAD, no edema . Skin - Patients skin is warm and dry. HEENT - normocephalic, atraumatic, moist mucous membranes. Neck - full ROM, no LAD, no JVD Pulmonary - B/L equal breath sounds. no crackles , no wheezing bilateral chest clear, breathing in room air cardiovascular - normal S1,S2 heard. no murmurs heard. peripheral pulses normal radial 2+, pedal 2+. Status post IV Lasix no peripheral edema noted GI - soft abdomen without tenderness to palpation. no hepatospleenomegaly. Bowel sounds normoactive Neurological - Bilateral upper extremity strength 5/5, bilateral lower extremity strength 5/5, no facial droop, normal speech, no tremor, no sensory deficiets. laboratory and microbiology Laboratory Tests 03/22/24 01:23 Test 03/22/24 01:23 Range/Units Serum Glucose 158 H 74-106 mg/dL Labs and/or images reviewed: Labs reviewed by me, Image(s) reviewed by me Problem List/Assessment/Plan Problem List/Assessment/Plan Hospitalization summary/ Assessment: A 68-year-old female with a history of follicular lymphoma, type 2 diabetes mellitus, hyperlipidemia, and heart failure with moderately reduced ejection fraction presented to the ED with generalized weakness, body aches, dry cough, headache, lethargy, decreased appetite, and dizziness for the past five days. She lives alone and denies smoking, alcohol, or drug use. Her past surgical history includes a right rotator cuff injury and a chemotherapy catheter. She is on metformin, metoprolol tartrate, and Vascepa. Plan: # Community-acquired pneumonia likely ?viral ?Atypical ?Gram+/- bacteria: Chest x-ray remarkable, now on Zosyn and azithromycin appropriate coverage. Sputum culture pending, blood culture pending. MRSA negative, COVID, influenza negative. # Severe Sepsis likely due to pneumonia: SIRS response with worsening WBC, fever and Lactic acidosis improved with sepsis dose fluid and sepsis protocol along with IV antibiotics # moderately reduced ejection fraction/last LVEF 45% in 2019 echo, now recovered: Repeat echo pending, home metoprolol tartrate likely to be changed to succinate for optimum benefit. Patient has a room for improvement with GDM T. # type 2 diabetes mellitus, controlled: HbA1c 6 .7: Continue CC diet, SSI sc HS, patient on metformin # lactic acidosis: could be due to sepsis or secondary due to metformin use. Status post fluid subsided. # history of follicular lymphoma: Last chemotherapy 2023, patient has had still [facility], follows with Dr. Rebolledo, hemato oncologist. # hyperlipidemia: Continue statin 40 mg daily at night # possible UTI: Previous history of UTI was treated outpatient with nitrofurantoin. Trace positive leukocyte esterase, follow urine culture, Gram- negative covered with appropriate antibiotics. # vitamin-D deficiency: Daily 2000 units # diet supplements , she uses herbal supplements that total be held in hospital. # mild aortic regurgitation Diet: CC diet GI prophylaxis: Not needed DVT prophylaxis: Brisk movement to continue Bowel regimen: Colace as needed Barriers to discharge: Medical diagnosis and management in progress. Patient lives with family. Independent for ADL. Likely can be discharged at [facility], within 24 hours with transition to oral medications. Patient care and plan discussed with Dr. Villagran Disposition: Patient remains in telemetry> can consider to downgrade to [facility] tomorrow Code status: Full code discussed over 29 minutes along with care plan. Plan discussed with: Patient, Other (Primary team, RN) My Orders My Orders Orders - KAYLEE HIDALGO Procedure Category Date Status Time Lactic Acid W/ Reflex LAB 03/22/24 Verified Order 09:31 Date of Service: Mar 22, 2024 Billing Provider: TAD MELCHOR MD Common Visit Codes: [id number] INP/OBS CARE(HIGH) KAYLEE HIDALGO Mar 22, 2024 09:33 TAD MELCHOR MD Mar 24, 2024 21:28
--- NOTE | 2024-03-22 10:06 | DVH ---
Procedure: CT CT AB PEL WO CON-NO ORAL OR IV 03/22/2024 08:40 AM Indication: B/L flank pain, h/o renal stones Comparison Study: CT scan dated 03/1923 Technique: Axial images were obtained and reformatted in coronal and sagittal planes. All CT scans at this medical facility are performed using dose modulation techniques as appropriate t o a performed exam including the following: Automated exposure control was utilized; adjustment of th e MA and/or KV according to patient size; and use of iterative reconstruction technique. CT Dose: CTDI volume is 12.19 mGy. Dose-length product is 594.88 mGy*cm FINDINGS: Lower Chest: The heart is normal in size. Coronary artery calcification noted. Hepatobiliary: Unremarkable. Spleen: Unremarkable. Pancreas: Unremarkable. Adrenal Glands: Unremarkable. tract: The kidneys are normal in size bilaterally . Mild left hydronephrosis. No urinary calculi are seen. Mild diffuse bladder wall thickening could be at least in part due to lack of distention. A subcentimeter focus of air noted in the bladder lumen. GI tract: The stomach is grossly normal in appearance. No evidence of small bowel obstruction. The la rge bowel is unremarkable. The appendix is normal. Lymphatics: Ill-defined soft tissue fullness in the left para-aortic region at and inferior to level of the kidneys. Vasculature: Aorta is normal in caliber. Scattered calcified plaques are noted. Pelvic Organs: Unremarkable Bones/soft tissues: No acute abnormality. Other: None. IMPRESSION: 1. Mild left hydronephrosis and proximal hydroureter without urinary calculi. 2. Soft tissue fullness noted in the left para-aortic region at and inferior to the level of the left kidney that may represent lymphadenopathy. Evaluation is very limited without IV contrast. Recomme nd further evaluation with CT scan with IV contrast. A CT angiogram is preferred. 3. A subcentimeter focus of air in an empty urinary bladder may reflect recent instrumentation. There is diffuse bladder wall thickening. Correlate with history of recent catheterization. Otherwise, pr esence of air in the bladder May signify fistulization to an air containing organ.
[2024-03-22 10:57] LABS: Lactic Acid w/Reflex 2.2 mmol/L (0.4-2.0)
[2024-03-22] MEDS: DOXYCYCLINE 100 MG TAB/CAP PO SCH (16:02)
[2024-03-22 17:21] LABS: Amphetamine Screen, Urine Neg (NEGATIVE); Barbiturate Scree,Urine Neg (NEGATIVE); Benzodiazephine Screen, Urine Neg (NEGATIVE); Cannabinoid Screen, Urine Neg (NEGATIVE); Cocaine Screen, Urine Neg (NEGATIVE); Opiate Scree,Urine Neg (NEGATIVE); Phencyclidine Screen, Urine Neg (NEGATIVE)
[2024-03-22] MEDS ORDERED: AZITHROMYCIN 500MG/ 250ML 250 ML IV SCH (21:00)
[2024-03-22] MEDS: ACETAMINOPHEN 325 MG TAB PO PRN (22:49)
[2024-03-23] VITALS (8 sets, daily range): BP systolic 89–123; BP diastolic 50–70; PULSE 70–89; RESP 16–22; TEMP 98.5–101.5; O2SAT 91–98
[2024-03-23 00:28] LABS: COVID19 ANTIGEN SOFIA FIA NEGATIVE (NEGATIVE); Rapid Influenza A Negative (Negative); Rapid Influenza B Negative (Negative)
--- NOTE | 2024-03-23 11:55 | DVHSR ---
APPROVED REPORT EXAM: Two-dimensional and M-mode echocardiogram with Doppler and color Doppler. Blood Pressure: 121/68 mmHg INDICATION SOB, H/O HF MR EF RISK FACTORS Height: 61, Weight: 180 DIMENSIONS LVDd4.1 (3.8-5.7cm)LA (2D)4.1 (1.9-4.0cm)Aortic Root3.4 (2.0-3.7cm) LVDs2.8 (2.5-4.0cm)LA (MM) (1.9-4.0cm)Aortic Cusp Exc1.8 (1.5-2.0cm) EF (%) 60.0 (55-70%)Rt. Atrium4.9 (1.9-4.0cm)Asc. Aorta cm Mitral Valve MitralMitral Stenosis E wave0.77m/sMV Mean GR.mmHg A wave0.76m/sMV Peak GR.mmHg E/A ratio1.02D MVAcm2 DECEL [id number] 1/2 [id number] IVRTmsDop MVA3.09cm2 Aortic Valve Aortic ValveAortic Stenosis V11.12m/Natalia Mean GR.6mmHg V21.60m/Natalia Peak GR.10mmHg LVOT Diameter2.0 (1.8-2.4cm)Doppler AVA2.20cm2 AI P 1/2 Lzcr799.04ms Pulmonic Valve V20.93m/s Other Information Technically limited study due to body habitus. Conclusion LV EJECTION FRACTION IS 65% SLIGHTLY DILATED LA MILD AORTIC REGURGITATION NORMAL MV,TV AND PV NORMAL RV FUNCTION NO EFFUSION
[2024-03-23 12:02] LABS: Basophils # (auto) 0 10 ^3/uL (0-0.2); Basophils % (auto) 0.3 % (0.0-2.0); Eosinophils # (auto) 0 10 ^3/uL (0-0.8); Hematocrit 37.9 % (36.0-46.0); Hemoglobin 12.7 g/dL (12.2-16.2); Lymphocytes # (auto) 0.6 10 ^3/uL (0.4-5.4); Lymphocytes % (auto) 14.3 % (10.0-50.0); Mean Corpuscular Hemoglobin 31.9 pg (28.0-32.0); Mean Corpuscular Hgb Conc. 33.6 g/dL (32.0-36.0); Monocytes # (auto) 0.3 10 ^3/uL (0-1.3); Monocytes % (auto) 6.1 % (0.0-12.0); Neutrophils # (auto) 3.4 10 ^3/uL (1.6-8.6); Neutrophils % (auto) 79.3 % (37.0-80.0); Platelet Count (auto) 167 10^3/uL (140-450); Red Blood Cells 3.99 10^6/uL (4.0-5.20); Red Cell Distribution Width 14.4 % (11.8-14.3); White Blood Cell 4.3 10^3/uL (4.4-10.8)
[2024-03-23 12:34] LABS: Alanine Aminotransferase 34 U/L (7-40); Albumin 4.2 g/dL (3.2-4.8); Anion Gap 8 (5-15); Aspartate Aminotransferase 27 U/L (13-40); BUN/Creatinine Ratio 10.8 (10.0-20.0); Bilirubin, Total 0.4 mg/dL (0.2-1.0); Blood Urea Nitrogen 11 mg/dL (9-23); Calcium 9.6 mg/dL (8.7-10.4); Carbon Dioxide 27 mmol/L (20-31); Chloride 100 mmol/L (98-107); Potassium 3.9 mmol/L (3.5-5.1)
[2024-03-23 12:43] LABS: Alkaline Phosphatase 126 U/L (46-116); Glucose 182 mg/dL (74-106); Sodium 135 mmol/L (136-145)
[2024-03-23] MEDS ORDERED: IBUPROFEN 400 MG TAB PO PRN (12:45)
[2024-03-23] MEDS: ACETAMINOPHEN 325 MG TAB PO SCH (12:45)
[2024-03-23] MEDS ORDERED: guaiFENesin-CODEINE Liq 5 ML UD PO PRN (12:45)
--- NOTE | 2024-03-23 13:05 | DVHPN2 ---
Progress Note Date Seen: Mar 23, 2024 Medical Necessity Reason Pt with a Central, PICC or Fol: No Subjective Review of Systems: CVS:Normal, RESPIRATORY:Normal, GI:Normal, :Normal, NEURO:Normal Objective vital signs Vital Sign Date Time Temp Pulse Resp B/P (MAP) Pulse Ox O2 Delivery O2 Flow Rate FiO2 03/23/24 12:23 101.5 03/23/24 09:00 83 16 121/68 (85) 98 03/23/24 08:00 Room Air* 0 21 Total Intake and Output 03/22/24 03/22/24 03/23/24 15:00 23:00 07:00 Intake Total 100 ml 1860 ml 300 ml Output Total 1000 ml 350 ml Balance 100 ml 860 ml -50 ml medications Current Medications Medications Dose Ordered Sig/Sadia Route Start Time Stop Time Status Last Admin Dose Admin Piperacillin Sod/ Tazobactam Sod 100 ml @ 33.3 mls/hr Q8HR IV 03/21/24 22:00 03/23/24 05:59 33.3 MLS/HR Diagnostic Test (Pha) 1 strip ACHS 03/22/24 07:00 03/23/24 11:55 1 STRIP Insulin Human Regular ACHS SC 03/22/24 07:00 03/23/24 11:56 3 UNITS Dextrose 50 ml UD PRN IV 03/22/24 01:00 Sodium Chloride 1,000 ml @ 100 mls/hr Q10H IV 03/22/24 01:00 03/23/24 11:56 100 MLS/HR Doxycycline Monohydrate 100 mg Q12HR PO 03/22/24 15:00 03/23/24 09:51 100 MG Acetaminophen 650 mg Q6HP PO 03/23/24 12:45 Guaifenesin/ Codeine Phosphate 5 ml Q4HPRN PRN PO 03/23/24 12:45 Ibuprofen 400 mg Q6HP PRN PO 03/23/24 12:45 Examination: GENERAL:Normal, LUNGS:Normal, CVS:Normal, ABDOMEN:Normal, SKIN:Normal, NEURO:Normal laboratory and microbiology Laboratory Tests 03/23/24 11:45 Test 03/23/24 11:45 Range/Units Serum Glucose 182 H 74-106 mg/dL Microbiology Date/Time Source Procedure Growth Status 03/22/24 00:24 Nose MRSA Screen - Final Complete 03/21/24 19:45 Blood Blood Culture - Preliminary NO GROWTH AFTER 24 HOURS OF INCUBATION. Resulted Labs and/or images reviewed: Labs reviewed by me, Image(s) reviewed by me Problem List/Assessment/Plan Problem List/Assessment/Plan 1. Sepsis due to pneumonia IV antibiotics, pending blood cultures, sputum cultures 2. Pneumonia likely Gram-negative or Gram-positive IV antibiotics 3. Acute on chronic systolic heart failure IV diuretics, fluid restriction 4. Uncontrolled type 2 diabetes with hyperglycemia Insulin sliding scale 5. lymphoma Monitor 6. Lactic acidosis secondary to sepsis 7. Hyperlipidemia Continue atorvastatin 40 mg 8. No UTI noted Subjective: Awake and alert Objective: Patient was admitted for sepsis likely related to pneumonia. Patient was placed on IV Zosyn. Patient was also found to have acute on chronic systolic heart failure. Influenza A/B and COVID is negative. Patient has been having fevers of 101 Plan: Awaiting blood cultures, IV antibiotics, insulin sliding scale, consult Infectious Disease Plan discussed with: Patient Date of Service: Mar 23, 2024 Billing Provider: MAHI MCPHERSON MD Common Visit Codes: [id number] INP/OBS CARE (MOD) KURT LEON [employer] Mar 23, 2024 13:05
--- NOTE | 2024-03-23 18:46 | DVHINCON2 ---
Date of service: Mar 23, 2024 Referring Physician Bernarda Nye MD Reason for Consultation Pneumonia, sepsis. History of Present Illness A 68-year-old woman with past medical history of follicular lymphoma, DM type II, hyperlipidemia and heart failure w/ reduced EF, who presented to ED on 03/21 with a chief complaint of generalized weakness for the past 5 days. Patient reported onset of body aches 5 days prior to presentation with associated cough for 2 days, mostly dry. Had headache, lethargy and decreased appetite. Patient also reported dizziness when she tried to get up from the bed. Patient was admitted for further care, and pulmonary consultation is requested for evaluation and management due to pneumonia with sepsis. Review of Systems: 14-point review of systems negative unless otherwise noted above. Past Medical History: Follicular lymphoma diagnosed in 2022, finished with chemotherapy in July 2023. Type 2 diabetes mellitus, hyperlipidemia, heart failure with moderately reduced ejection fraction (echo in 2019 shows LVEF 45%) Past Surgical History: Right rotator cuff injury, chemotherapy catheter Medications: Reviewed. Allergies: Tape Family History: Cardiovascular disease Diabetes mellitus Hyperlipidemia Myocardial infarction. Social History: Nonsmoker. No alcohol or illicit drug use. Family History: Cardiovascular disease G8 MOTHER Diabetes mellitus G8 MOTHER G8 FATHER FH: diabetes mellitus FH: hyperlipidemia G8 MOTHER G8 FATHER FH: myocardial infarction G8 MOTHER Allergies: Uncoded Allergies: tape (Allergy, Intermediate, 03/31/23) Home Meds Reported Medications Withania Somnifera (Ashwagandha) 125 Mg Cap, 125 MG PO, CAP 03/22/24 Fluticasone Propionate (Nasal) (Flonase Allergy Relief) 50 Mcg/Act Spr, 50 MCG NA, SPRAY 03/22/24 Metoprolol Tartrate (Lopressor) 25 Mg Tb, 25 MG PO Q12HR, TAB 0 Refills 03/22/24 Epa Ethyl Monique (VASCEPA) 1 Gm Cap, 1 GM OR DAILY, CAP 07/16/23 Metformin Hydrochloride (Metformin Hcl) 850 Mg Tab, 850 MG PO DAILY for 30 Days, MG 07/16/23 Ibuprofen (Ibuprofen) 800 Mg Tab, 800 MG PO TID, MG 09/05/18 Cholecalciferol (VITAMIN D3) 2,000 Unit Tab, 2000 UNIT PO DAILY, TAB 09/05/18 Current Medications Current Medications Medications (Trade) Dose Ordered Sig/Sadia Route PRN Reason Start Time Stop Time Status Last Admin Azithromycin 250 ml @ 125 mls/hr DAILY@2100 IV 03/22/24 21:00 03/22/24 14:53 DC Acetaminophen (Tylenol Tablet) 650 mg Q6HP PRN PO TEMP GREATER THAN 100.4 03/22/24 22:45 03/23/24 12:44 DC 03/23/24 12:23 Acetaminophen (Tylenol Tablet) 650 mg Q6HP PO 03/23/24 12:45 03/23/24 18:13 Guaifenesin/ Codeine Phosphate (Robitussin/ Codeine Liq) 5 ml Q4HPRN PRN PO FOR COUGH 03/23/24 12:45 Ibuprofen (Motrin Tablet) 400 mg Q6HP PRN PO TEMP GREATER THAN 100.4 03/23/24 12:45 Atorvastatin Calcium (Lipitor) 40 mg HS PO 03/23/24 22:00 Vital Signs Vital Signs Date Time Temp Pulse Resp B/P (MAP) Pulse Ox O2 Delivery O2 Flow Rate FiO2 03/23/24 18:13 99.4 03/23/24 16:56 77 18 96/70 (79) 94 03/23/24 08:00 Room Air* 0 21 Physical Exam Gen.: Patient lying in bed in no apparent distress. Breathing on room air. Head: Normocephalic, atraumatic. Eyes: EOMI/PERRLA. Ears: Normal hearing. Normal anatomy. Neck/trachea: Trachea midline, supple. Nose: Normal external anatomy. Mouth: Moist mucous membranes. Chest: Decreased air entry bilaterally. No wheezing or rhonchi. Cardiovascular: Positive S1, positive S2. Regular rate and rhythm. Abdomen: Positive bowel sounds in all 4 quadrants. Soft, non-tender, non- distended. : Deferred. Rectal: Deferred. Skin: Warm, dry. Intact. Extremities: 2+ radial pulses bilaterally. No lower extremity edema. Neuro: Awake, alert, oriented x3. No gross motor or sensory deficits. Cranial nerves II through XII intact. Gait not assessed. Labs/Diagnostic Data Labs Test 03/23/24 16:45 03/23/24 14:00 03/23/24 11:45 03/22/24 23:25 Range/Units POC Glucose 156 H 70-106 mg/dl HIV (1&2) Antibody Negative Negative White Blood Count 4.3 L 4.4-10.8 10^3/uL Red Blood Count 3.99 L 4.0-5.20 10^6/uL Hemoglobin 12.7 12.2-16.2 g/dL Hematocrit 37.9 36.0-46.0 % Mean Corpuscular Volume 95.0 80.0-100.0 fL Mean Corpuscular Hemoglobin 31.9 28.0-32.0 pg Mean Corpuscular Hemoglobin Concent 33.6 32.0-36.0 g/dL Red Cell Distribution Width 14.4 H 11.8-14.3 % Platelet Count 167 140-450 10^3/uL Mean Platelet Volume 7.3 6.9-10.8 fL Neutrophils (%) (Auto) 79.3 37.0-80.0 % Lymphocytes (%) (Auto) 14.3 10.0-50.0 % Monocytes (%) (Auto) 6.1 0.0-12.0 % Eosinophils (%) (Auto) 0.0 0.0-7.0 % Basophils (%) (Auto) 0.3 0.0-2.0 % Neutrophils # (Auto) 3.4 1.6-8.6 10 ^3/uL Lymphocytes # (Auto) 0.6 0.4-5.4 10 ^3/uL Monocytes # (Auto) 0.3 0-1.3 10 ^3/uL Eosinophils # (Auto) 0 0-0.8 10 ^3/uL Basophils # (Auto) 0 0-0.2 10 ^3/uL Nucleated Red Blood Cells 0.0 % Sodium Level 135 L 136-145 mmol/L Potassium Level 3.9 3.5-5.1 mmol/L Chloride Level 100 98-107 mmol/L Carbon Dioxide Level 27 20-31 mmol/L Anion Gap 8 5-15 Blood Urea Nitrogen 11 9-23 mg/dL Creatinine 1.02 0.550-1.02 mg/dL Glomerular Filtration Rate Calc 61 >90 mL/min BUN/Creatinine Ratio 10.8 10.0-20.0 Serum Glucose 182 H 74-106 mg/dL Calcium Level 9.6 8.7-10.4 mg/dL Total Bilirubin 0.4 0.2-1.0 mg/dL Aspartate Amino Transferase (AST) 27 13-40 U/L Alanine Aminotransferase (ALT) 34 7-40 U/L Alkaline Phosphatase 126 H 46-116 U/L Total Protein 7.0 5.7-8.2 g/dL Albumin 4.2 3.2-4.8 g/dL Influenza Type A Antigen Negative Negative Influenza Type B Antigen Negative Negative SARS-CoV-2 Antigen (Rapid) Negative NEGATIVE Test 03/22/24 12:37 03/22/24 01:23 03/21/24 18:52 Range/Units Lactic Acid Level 2.0 0.4-2.0 mmol/L Hemoglobin A1c 6.7 H <5.7 % A1C Troponin I High Sensitivity 12 </=34 ng/L B-Type Natriuretic Peptide 40.63 0-100 pg/mL Thyroid Stimulating Hormone (TSH) 2.79 0.55-4.78 uIU/mL Urine Color Yellow Yellow Urine Clarity Clear Clear Urine pH 6.5 5.0-9.0 Urine Specific [place] 1.020 1.001-1.035 Urine Protein Trace H Negative Urine Ketones Negative Negative Urine Blood 2+ H Negative /uL Urine Nitrite Negative Negative Urine Bilirubin Negative Negative Urine Urobilinogen Normal Negative mg/dL Urine Leukocyte Esterase Trace Negative /uL Urine RBC 22 0 - 4 /hpf Urine WBC 2 0 - 5 /hpf Urine Squamous Epithelial Cells Few <5 /hpf Urine Bacteria Few H None Seen /hpf Urine Mucus Few None Seen Urine Glucose Normal Normal mg/dL Urine Opiates Screen Neg NEGATIVE Urine Fentanyl Screen Neg NEGATIVE Urine Barbiturates Screen Neg NEGATIVE Urine Phencyclidine Screen Neg NEGATIVE Urine Amphetamines Screen Neg NEGATIVE Urine Benzodiazepines Screen Neg NEGATIVE Urine Cocaine Screen Neg NEGATIVE Urine Cannabinoids Screen Neg NEGATIVE Microbiology Date/Time Source Procedure Growth Status 03/22/24 00:24 Nose MRSA Screen - Final Complete 03/21/24 19:45 Blood Blood Culture - Preliminary NO GROWTH AFTER 24 HOURS OF INCUBATION. Resulted Assessment Impression: Sepsis 2/2 pneumonia Pneumonia, likely gram negative Lactic acidosis Acute on chronic heart failure w/ reduced ejection fraction Atelectasis Obesity Plan: Supplemental oxygen PRN Titrate to keep O2 sats above 92%. Continue antibiotics Incentive spirometry Follow up cultures Antitussives for cough. Follow up ID recommendations Monitor renal function. Monitor electrolytes. Supplement as necessary. Monitor ins and outs. Accu-Cheks, ISS. Diet and lifestyle modifications for weight reduction Obesity - complicates all care DVT prophylaxis. Prognosis: Poor given patient's multiple co-morbidities. Rest of plan per hospitalist and other consultants. Thank you, Dr. Nye, for allowing me to participate in this patient's care. Further recommendations will depend on the patient's clinical course. Please do not hesitate to contact me if you have any questions or concerns. This medical document was created using an electronic medical record system with [employer] dictation system. Although these documentations are being carefully reviewed, there may still be some phonetic and typographical changes. The errors are purely typographical, due to imperfection on the software program, and do not reflect any compromise in the patient's medical care. Plan discussed with: Patient, Daughter, Other (LEOBARDO Cardozo/ Jhajj) MARY MANTILLA MD Mar 23, 2024 18:46
[2024-03-23] MEDS: ATORVASTATIN 20 MG TAB PO SCH (21:24)
[2024-03-24] VITALS (10 sets, daily range): BP systolic 82–111; BP diastolic 49–58; PULSE 78–87; RESP 18–20; TEMP 98.1–100.6; O2SAT 93–98
[2024-03-24 07:25] LABS: Basophils # (auto) 0 10 ^3/uL (0-0.2); Basophils % (auto) 0.5 % (0.0-2.0); Eosinophils # (auto) 0 10 ^3/uL (0-0.8); Eosinophils % (auto) 0.1 % (0.0-7.0); Hematocrit 33.3 % (36.0-46.0); Hemoglobin 11.2 g/dL (12.2-16.2); Lymphocytes # (auto) 0.7 10 ^3/uL (0.4-5.4); Lymphocytes % (auto) 17.8 % (10.0-50.0); Mean Corpuscular Hgb Conc. 33.7 g/dL (32.0-36.0); Mean Corpuscular Volume 94.7 fL (80.0-100.0); Monocytes # (auto) 0.3 10 ^3/uL (0-1.3); Monocytes % (auto) 7.7 % (0.0-12.0); Neutrophils # (auto) 2.9 10 ^3/uL (1.6-8.6); Neutrophils % (auto) 73.9 % (37.0-80.0); Nucleated Red Blood Cells % 0.1 %; Platelet Count (auto) 161 10^3/uL (140-450); Red Blood Cells 3.51 10^6/uL (4.0-5.20); Red Cell Distribution Width 13.6 % (11.8-14.3); White Blood Cell 3.9 10^3/uL (4.4-10.8)
[2024-03-24 07:46] LABS: Alanine Aminotransferase 28 U/L (7-40); Alkaline Phosphatase 116 U/L (46-116); Anion Gap 7 (5-15); Aspartate Aminotransferase 20 U/L (13-40); BUN/Creatinine Ratio 9.8 (10.0-20.0); Blood Urea Nitrogen 9 mg/dL (9-23); Calcium 9.1 mg/dL (8.7-10.4); Carbon Dioxide 26 mmol/L (20-31); Chloride 104 mmol/L (98-107); Sodium 137 mmol/L (136-145)
[2024-03-24 07:47] LABS: Bilirubin, Total 0.5 mg/dL (0.2-1.0); Glucose 126 mg/dL (74-106); Total Protein 6.2 g/dL (5.7-8.2)
[2024-03-24 08:35] LABS: Albumin 3.8 g/dL (3.2-4.8)
--- NOTE | 2024-03-24 12:33 | DVHPN2 ---
Progress Note - Dictate Date Seen: Mar 24, 2024 Has the PT tested + for MRSA If YES, has PT been informed?: No Medical Necessity Reason Pt with a Central, PICC or Fol: No vital signs Vital Sign Date Time Temp Pulse Resp B/P (MAP) Pulse Ox O2 Delivery O2 Flow Rate FiO2 03/24/24 09:00 98.1 80 19 82/49 (60) 94 98.1 03/23/24 20:00 Room Air* 0 21 Total Intake and Output 03/23/24 03/23/24 03/24/24 15:00 23:00 07:00 Intake Total 300 ml 1050 ml 1350 ml Output Total 400 ml Balance 300 ml 1050 ml 950 ml medications Current Medications Medications Dose Ordered Sig/Sadia Route Start Time Stop Time Status Last Admin Dose Admin Piperacillin Sod/ Tazobactam Sod 100 ml @ 33.3 mls/hr Q8HR IV 03/21/24 22:00 03/24/24 05:54 33.3 MLS/HR Diagnostic Test (Pha) 1 strip ACHS 03/22/24 07:00 03/24/24 06:03 1 STRIP Insulin Human Regular ACHS SC 03/22/24 07:00 03/23/24 21:44 2 UNITS Dextrose 50 ml UD PRN IV 03/22/24 01:00 Doxycycline Monohydrate 100 mg Q12HR PO 03/22/24 15:00 03/24/24 10:04 100 MG Acetaminophen 650 mg Q6HP PO 03/23/24 12:45 03/24/24 06:03 650 MG Guaifenesin/ Codeine Phosphate 5 ml Q4HPRN PRN PO 03/23/24 12:45 Ibuprofen 400 mg Q6HP PRN PO 03/23/24 12:45 Atorvastatin Calcium 40 mg HS PO 03/23/24 22:00 03/23/24 21:24 40 MG Pantoprazole Sodium 40 mg DAILY@0600 PO 03/25/24 06:00 UNV Enoxaparin Sodium 40 mg DAILY SC 03/25/24 10:00 UNV objective General Appearance: alert, no distress HEENT: EOMI, PERRLA, normal external inspect of ears, no icterus, no nasal drainage Neck: no carotid bruit, no jugular venous distention (JVD), no lymphadenopathy Chest: normal thorax Respiratory: clear to auscultation, normal air movement Cardiovascular: regular rate and rhythm, no diastolic murmur, no jugular venous distention (JVD), no rub, no systolic murmur Abdominal: soft, no hepatomegaly, no mass, no splenomegaly, no tenderness Genitourinary: grossly normal external Musculoskeletal: no joint tenderness, no swelling Extremities: normal pulses, no calf tenderness, no clubbing, no cyanosis, no edema Skin: no bruising, no jaundice, no rash Neurological: alert, No focal deficit laboratory and microbiology Laboratory Tests 03/24/24 04:57 Test 03/24/24 04:57 Range/Units Serum Glucose 126 H 74-106 mg/dL Problem List 1. Sepsis likely due to pneumonia Monitor 2. Lactic acidosis Monitor 3. Community-acquired pneumonia likely ?viral ?Atypical ?Gram+/- bacteria ? UTI Monitor, WBC 5->3.8 with left shift, COVID and influenza pending, chest x-ray shows Interstitial prominence is relatively nonspecific but can be seen with edema, reactive airway changes as well as atypical / viral infection. Questionable developing infiltrate versus atelectasis/ scarring in the peripheral left lower lung field, patient given 1.5 L bolus, continued on NS at 100 mL/hour, on Zosyn 3.375 g q.8 hour and azithromycin 500 mg q.d. IV, bacteria culture pending, MRSA pending, respiratory sputum culture pending, urine culture pending, monitor vitals, BMP 4. Acute on chronic heart failure with reduced ejection fraction Monitor, echo from 2019 shows LVEF 45%, new echo pending, home medication metoprolol held d/t sepsis 5. Uncontrolled Type 2 diabetes mellitus with hyperglycemia Monitor, HbA1c 6.7%, started on mild insulin sliding scale ACHS Assessment/Plan Subjective: Patient is awake alert. Objective: Patient is having a cough today. Patient states she does not feel well. Influenza and COVID was negative. Patient's T temp is 99.2. Patient reports a bowel movement today. Patient was admitted on March 22 for sepsis due to pneumonia. Pneumonia is most likely gram-positive or gram-negative. Patient was started on Zosyn and doxycycline. Patient has acute on chronic systolic heart failure. Patient is on diuretics with Lasix. Patient has a known history of lymphoma. Plan: Continue insulin sliding scale for diabetes. Continue cough medicine as needed. Repeat chest x-ray ordered for a.m. Plan discussed with: Patient, Other ROHIT CRAIN NP Mar 24, 2024 12:33
[2024-03-24] MEDS ORDERED: ALBUTEROL SULF 2.5 MG/0.5ML(0.5%) NEB SOLN NEB PRN (12:45)
[2024-03-24] MEDS ORDERED: IPRATROPIUM BROM 0.5 MG/2.5ML INH SOL NEB PRN (12:45)
[2024-03-24] MEDS: SODIUM CHLORIDE 0.9% 1,000 ML IV SCH (15:51)
[2024-03-24] MEDS: ALBUMIN 25% 100 ML IV ONE (16:38)
--- NOTE | 2024-03-24 17:24 | DVHINCON2 ---
Date of service: Mar 24, 2024 Referring Physician Nessa GREEN Reason for Consultation Pneumonia, Sepsis History of Present Illness Patient is a 68-year-old female presents to the hospital for the complaint of generalized weakness for the last 5 days. Patient reports that since 5 days she started to have body aches with associated dry cough. She had headache, lethargy and decreased appetite. Patient also reports dizzin ess when she tried to get up from the bed. Past Medical History Patient's past medical history is significant for Follicular lymphoma diagnosed in 2022, finished with the chemotherapy in July 2023 type 2 diabetes mellitus, hyperlipidemia, heart failure with moderately reduced ejection( echo in 2019 shows LVEF 45% ) Past Surgical History Past surgical history: Right rotator cuff injury, chemotherapy catheter Family History: Cardiovascular disease G8 MOTHER Diabetes mellitus G8 MOTHER G8 FATHER FH: diabetes mellitus FH: hyperlipidemia G8 MOTHER G8 FATHER FH: myocardial infarction G8 MOTHER Social History Social history: Patient lives alone and denies smoking, alcohol, drug use Allergies: Uncoded Allergies: tape (Allergy, Intermediate, 03/31/23) Home Meds Reported Medications Withania Somnifera (Ashwagandha) 125 Mg Cap, 125 MG PO, CAP 03/22/24 Fluticasone Propionate (Nasal) (Flonase Allergy Relief) 50 Mcg/Act Spr, 50 MCG NA, SPRAY 03/22/24 Metoprolol Tartrate (Lopressor) 25 Mg Tb, 25 MG PO Q12HR, TAB 0 Refills 03/22/24 Epa Ethyl Monique (VASCEPA) 1 Gm Cap, 1 GM OR DAILY, CAP 07/16/23 Metformin Hydrochloride (Metformin Hcl) 850 Mg Tab, 850 MG PO DAILY for 30 Days, MG 07/16/23 Ibuprofen (Ibuprofen) 800 Mg Tab, 800 MG PO TID, MG 09/05/18 Cholecalciferol (VITAMIN D3) 2,000 Unit Tab, 2000 UNIT PO DAILY, TAB 09/05/18 Current Medications Current Medications Medications (Trade) Dose Ordered Sig/Sadia Route PRN Reason Start Time Stop Time Status Last Admin Atorvastatin Calcium (Lipitor) 40 mg HS PO 03/23/24 22:00 03/23/24 21:24 Pantoprazole Sodium (Protonix Tablet) 40 mg DAILY@0600 PO 03/25/24 06:00 Enoxaparin Sodium (Lovenox) 40 mg DAILY SC 03/25/24 10:00 Sodium Chloride 1,000 ml @ 50 mls/hr Q20H IV 03/24/24 12:45 03/24/24 15:51 Ipratropium [place] (Atrovent Medneb) 0.5 mg Q4HPRN PRN NEB SHORTNESS OF BREATH 03/24/24 12:45 Albuterol (Ventolin Medneb) 2.5 mg Q4HPRN PRN NEB SHORTNESS OF BREATH 03/24/24 12:45 Review of Systems General: Reports generalized body ache and weakness, No Fever, chills, night s weats or weight loss HEENT: No Sinus pain, headache, vision changes or sore throat Respiratory: Reports Cough [dry], dyspnea, sputum production Cardiovascular: No Chest pain, palpitations or leg edema Gastrointestinal: No Nausea, vomiting, diarrhea, abdominal pain Genitourinary: No Dysuria, urinary frequency, hematuria, pelvic pain Skin: No Rashes, ulcers, abscesses, redness or swelling Musculoskeletal: No Joint pain, muscle pain or swelling Neurologic: No Altered mental status, headaches or focal neurological deficits Psychiatric: No Anxiety, depression or confusion Vital Signs Vital Signs Date Time Temp Pulse Resp B/P (MAP) Pulse Ox O2 Delivery O2 Flow Rate FiO2 03/24/24 15:44 98.2 78 97/55 97 0.0 21 98.2 03/24/24 15:44 Room Air* 03/24/24 13:00 18 Physical Exam Constitutional: Patient alert and oriented to time, place and person and does not appear to be in any acute distress. Gen - no pallor, no icterus, no cyanosis, no clubbing, no LAD, no edema . Skin - Patients skin is warm and dry. HEENT - normocephalic, atraumatic, moist mucous membranes. Neck - full ROM, no LAD, no JVD Pulmonary - B/L equal breath sounds. no crackles , no wheezing cardiovascular - normal S1,S2 heard. no murmurs heard. peripheral pulses normal radial 2+, pedal 2+. GI - soft abdomen without tenderness to palpation. no hepatosplenomegaly. Bowel sounds normoactive Neurological - Bilateral upper extremity strength 5/5, bilateral lower extremity strength 5/5, no facial droop, normal speech, no tremor, no sensory deficits. Labs/Diagnostic Data Labs Test 03/24/24 11:39 03/24/24 04:57 03/23/24 14:00 03/22/24 23:25 Range/Units POC Glucose 154 H 70-106 mg/dl White Blood Count 3.9 L 4.4-10.8 10^3/uL Red Blood Count 3.51 L 4.0-5.20 10^6/uL Hemoglobin 11.2 L 12.2-16.2 g/dL Hematocrit 33.3 #L 36.0-46.0 % Mean Corpuscular Volume 94.7 80.0-100.0 fL Mean Corpuscular Hemoglobin 32.0 28.0-32.0 pg Mean Corpuscular Hemoglobin Concent 33.7 32.0-36.0 g/dL Red Cell Distribution Width 13.6 11.8-14.3 % Platelet Count 161 140-450 10^3/uL Mean Platelet Volume 8.1 6.9-10.8 fL Neutrophils (%) (Auto) 73.9 37.0-80.0 % Lymphocytes (%) (Auto) 17.8 10.0-50.0 % Monocytes (%) (Auto) 7.7 0.0-12.0 % Eosinophils (%) (Auto) 0.1 0.0-7.0 % Basophils (%) (Auto) 0.5 0.0-2.0 % Neutrophils # (Auto) 2.9 1.6-8.6 10 ^3/uL Lymphocytes # (Auto) 0.7 0.4-5.4 10 ^3/uL Monocytes # (Auto) 0.3 0-1.3 10 ^3/uL Eosinophils # (Auto) 0 0-0.8 10 ^3/uL Basophils # (Auto) 0 0-0.2 10 ^3/uL Nucleated Red Blood Cells 0.1 % Sodium Level 137 136-145 mmol/L Potassium Level 4.0 3.5-5.1 mmol/L Chloride Level 104 98-107 mmol/L Carbon Dioxide Level 26 20-31 mmol/L Anion Gap 7 5-15 Blood Urea Nitrogen 9 9-23 mg/dL Creatinine 0.92 0.550-1.02 mg/dL Glomerular Filtration Rate Calc 69 >90 mL/min BUN/Creatinine Ratio 9.8 L 10.0-20.0 Serum Glucose 126 H 74-106 mg/dL Calcium Level 9.1 8.7-10.4 mg/dL Total Bilirubin 0.5 0.2-1.0 mg/dL Aspartate Amino Transferase (AST) 20 13-40 U/L Alanine Aminotransferase (ALT) 28 7-40 U/L Alkaline Phosphatase 116 46-116 U/L Total Protein 6.2 5.7-8.2 g/dL Albumin 3.8 3.2-4.8 g/dL HIV (1&2) Antibody Negative Negative Influenza Type A Antigen Negative Negative Influenza Type B Antigen Negative Negative SARS-CoV-2 Antigen (Rapid) Negative NEGATIVE Test 03/22/24 12:37 03/22/24 01:23 03/21/24 18:52 Range/Units Lactic Acid Level 2.0 0.4-2.0 mmol/L Hemoglobin A1c 6.7 H <5.7 % A1C Troponin I High Sensitivity 12 </=34 ng/L B-Type Natriuretic Peptide 40.63 0-100 pg/mL Thyroid Stimulating Hormone (TSH) 2.79 0.55-4.78 uIU/mL Urine Color Yellow Yellow Urine Clarity Clear Clear Urine pH 6.5 5.0-9.0 Urine Specific [place] 1.020 1.001-1.035 Urine Protein Trace H Negative Urine Ketones Negative Negative Urine Blood 2+ H Negative /uL Urine Nitrite Negative Negative Urine Bilirubin Negative Negative Urine Urobilinogen Normal Negative mg/dL Urine Leukocyte Esterase Trace Negative /uL Urine RBC 22 0 - 4 /hpf Urine WBC 2 0 - 5 /hpf Urine Squamous Epithelial Cells Few <5 /hpf Urine Bacteria Few H None Seen /hpf Urine Mucus Few None Seen Urine Glucose Normal Normal mg/dL Urine Opiates Screen Neg NEGATIVE Urine Fentanyl Screen Neg NEGATIVE Urine Barbiturates Screen Neg NEGATIVE Urine Phencyclidine Screen Neg NEGATIVE Urine Amphetamines Screen Neg NEGATIVE Urine Benzodiazepines Screen Neg NEGATIVE Urine Cocaine Screen Neg NEGATIVE Urine Cannabinoids Screen Neg NEGATIVE Microbiology Date/Time Source Procedure Growth Status 03/23/24 15:40 Blood Blood Culture - Preliminary NO GROWTH AFTER 24 HOURS OF INCUBATION. Resulted 03/23/24 12:33 Sputum Gram Stain - Final Resulted 03/23/24 12:33 Sputum Respiratory Culture - Preliminary Resulted 03/22/24 00:24 Nose MRSA Screen - Final Complete Assessment Patient is a 68-year-old female presents to the hospital with: Sepsis likely due to pneumonia Pneumonia likely gram negative Lactic acidosis ? UTI ? Acute on chronic heart failure with reduced ejection fraction Uncontrolled Type 2 diabetes mellitus with hyperglycemia Recommendations: Antibiotic status since admission Zosyn 3.375 g q.8 hour [Started 03/21 - Ongoing] Doxycycline PO [Started 03/22 - Ongoing] reviewed cultures/ imaging personally: most of the cultures are negative dc Zosyn, taper to IV Ceftriaxone and continue Doxycycline: total for 5 - days total: stop date 03/27 03/22, MRSA is negative 03/22, COVID and influenza pending: Negative 03/23, Respiratory sputum culture showed Normal Oropharyngeal Vianey 03/23, Blood culture preliminary showed no growth Chest x-ray showed: Interstitial prominence is relatively nonspecific but can be seen with edema, reactive airway changes as well as atypical / viral infection. Questionable developing infiltrate versus atelectasis/ scarring in the peripheral left lower lung field. Thank you for consult. Plan discussed with: MARIA D Aguilera MD Mar 24, 2024 17:24
--- NOTE | 2024-03-24 22:28 | DVHPN2 ---
Progress Note - Dictate Date Seen: Mar 24, 2024 Has the PT tested + for MRSA If YES, has PT been informed?: No Medical Necessity Reason Pt with a Central, PICC or Fol: No Subjective Patient seen and examined at bedside. Breathing comfortably on room air. Overnight events reviewed. vital signs Vital Sign Date Time Temp Pulse Resp B/P (MAP) Pulse Ox O2 Delivery O2 Flow Rate FiO2 03/24/24 21:00 100.6 83 20 108/58 (75) 93 100.6 03/24/24 15:44 0.0 21 03/24/24 15:44 Room Air* Total Intake and Output 03/23/24 03/23/24 03/24/24 15:00 23:00 07:00 Intake Total 300 ml 1050 ml 1350 ml Output Total 400 ml Balance 300 ml 1050 ml 950 ml medications Current Medications Medications Dose Ordered Sig/Sadia Route Start Time Stop Time Status Last Admin Dose Admin Diagnostic Test (Pha) 1 strip ACHS 03/22/24 07:00 03/24/24 17:22 1 STRIP Insulin Human Regular ACHS SC 03/22/24 07:00 03/24/24 15:48 2 UNITS Dextrose 50 ml UD PRN IV 03/22/24 01:00 Doxycycline Monohydrate 100 mg Q12HR PO 03/22/24 15:00 03/24/24 10:04 100 MG Acetaminophen 650 mg Q6HP PO 03/23/24 12:45 03/24/24 17:51 650 MG Guaifenesin/ Codeine Phosphate 5 ml Q4HPRN PRN PO 03/23/24 12:45 Ibuprofen 400 mg Q6HP PRN PO 03/23/24 12:45 Atorvastatin Calcium 40 mg HS PO 03/23/24 22:00 03/23/24 21:24 40 MG Pantoprazole Sodium 40 mg DAILY@0600 PO 03/25/24 06:00 Enoxaparin Sodium 40 mg DAILY SC 03/25/24 10:00 Sodium Chloride 1,000 ml @ 50 mls/hr Q20H IV 03/24/24 12:45 03/24/24 15:51 50 MLS/HR Ipratropium [place] 0.5 mg Q4HPRN PRN NEB 03/24/24 12:45 Albuterol 2.5 mg Q4HPRN PRN NEB 03/24/24 12:45 Ceftriaxone Sodium 50 ml @ 100 mls/hr DAILY@09 IV 03/25/24 09:00 objective Gen.: Patient lying in bed in no apparent distress. Breathing on room air. Head: Normocephalic, atraumatic. Eyes: EOMI/PERRLA. Ears: Normal hearing. Normal anatomy. Neck/trachea: Trachea midline, supple. Nose: Normal external anatomy. Mouth: Moist mucous membranes. Chest: Decreased air entry bilaterally. No wheezing or rhonchi. Cardiovascular: Positive S1, positive S2. Regular rate and rhythm. Abdomen: Positive bowel sounds in all 4 quadrants. Soft, non-tender, non- distended. : Deferred. Rectal: Deferred. Skin: Warm, dry. Intact. Extremities: 2+ radial pulses bilaterally. No lower extremity edema. Neuro: Awake, alert, oriented x3. No gross motor or sensory deficits. Cranial nerves II through XII intact. Gait not assessed. laboratory and microbiology Laboratory Tests 03/24/24 04:57 Test 03/24/24 04:57 Range/Units Serum Glucose 126 H 74-106 mg/dL Assessment/Plan Impression: Sepsis 2/2 pneumonia Pneumonia, likely gram negative Lactic acidosis Acute on chronic heart failure w/ reduced ejection fraction Atelectasis Obesity Events: Remains on room air. Supplemental oxygen PRN Continue bronchodilators Continue antibiotics Follow up ID recommendations Disposition per hospitalist. Labs and imaging reviewed. Rest of plan as noted below. Plan: Supplemental oxygen PRN Titrate to keep O2 sats above 92%. Continue antibiotics Incentive spirometry Blood cultures - no growth for 24 hours Sputum cultures show normal oropharyngeal aracelis. Antitussives for cough. Follow up ID recommendations Monitor renal function. Monitor electrolytes. Supplement as necessary. Monitor ins and outs. Accu-Cheks, ISS. Diet and lifestyle modifications for weight reduction Obesity - complicates all care DVT prophylaxis. Prognosis: Poor given patient's multiple co-morbidities. Rest of plan per hospitalist and other consultants. Thank you, Dr. Nye, for allowing me to participate in this patient's care. Further recommendations will depend on the patient's clinical course. Please do not hesitate to contact me if you have any questions or concerns. This medical document was created using an electronic medical record system with [employer] dictation system. Although these documentations are being carefully reviewed, there may still be some phonetic and typographical changes. The errors are purely typographical, due to imperfection on the software program, and do not reflect any compromise in the patient's medical care. Plan discussed with: Patient, Other (LEOBARDO Jules) MARY MANTILLA MD Mar 24, 2024 22:28
[2024-03-24 23:53] LABS: COVID19 ANTIGEN SOFIA FIA NEGATIVE (NEGATIVE); Rapid Influenza A Negative (Negative); Rapid Influenza B Negative (Negative)
[2024-03-25] VITALS (11 sets, daily range): BP systolic 95–101; BP diastolic 49–60; PULSE 62–76; RESP 16–18; TEMP 98.5–99.9; O2SAT 92–98
[2024-03-25] MEDS: PANTOPRAZOLE 40 MG TAB PO SCH (06:07)
--- NOTE | 2024-03-25 07:04 | DVH ---
CLINICAL INFORMATION: 68 years old, Female; re-hodan pna. TECHNIQUE: Single AP portable chest radiograph was obtained. COMPARISON: XY CHEST PORTABLE on DOS: 03/21/24, XY CHEST PORTABLE on DOS: 01/13/23, XY CHEST PORTABLE o n DOS: 12/21/22 FINDINGS: Bilateral interstitial opacities minimally changed compared to the prior exam. No focal consolidation . Stable satisfactory positioning of the right internal jugular port catheter. No other significant i nterval change. IMPRESSION: No significant interval change as detailed above.
[2024-03-25] MEDS: ENOXAPARIN SOD 40 MG/0.4 ML SYRINGE SC SCH (10:32)
[2024-03-25] MEDS: cefTRIAXone 1GM/50ML D5W 50 ML IV SCH (10:35)
[2024-03-25] MEDS ORDERED: AZIT-43 PO (12:43)
--- NOTE | 2024-03-25 12:43 | DVHPN2 ---
Progress Note - Dictate Has the PT tested + for MRSA If YES, has PT been informed?: No Medical Necessity Reason Pt with a Central, PICC or Fol: No vital signs Vital Sign Date Time Temp Pulse Resp B/P (MAP) Pulse Ox O2 Delivery O2 Flow Rate FiO2 03/25/24 10:00 96 Room Air* 0 21 03/25/24 09:00 98.5 74 16 99/49 (66) 98.5 Total Intake and Output 03/24/24 03/24/24 03/25/24 15:00 23:00 07:00 Intake Total 568 ml 1218 ml 800 ml Balance 568 ml 1218 ml 800 ml medications Current Medications Medications Dose Ordered Sig/Sadia Route Start Time Stop Time Status Last Admin Dose Admin Diagnostic Test (Pha) 1 strip ACHS 03/22/24 07:00 03/25/24 10:33 1 STRIP Insulin Human Regular ACHS SC 03/22/24 07:00 03/24/24 15:48 2 UNITS Dextrose 50 ml UD PRN IV 03/22/24 01:00 Doxycycline Monohydrate 100 mg Q12HR PO 03/22/24 15:00 03/25/24 10:33 100 MG Acetaminophen 650 mg Q6HP PO 03/23/24 12:45 03/25/24 12:06 650 MG Guaifenesin/ Codeine Phosphate 5 ml Q4HPRN PRN PO 03/23/24 12:45 Ibuprofen 400 mg Q6HP PRN PO 03/23/24 12:45 Atorvastatin Calcium 40 mg HS PO 03/23/24 22:00 03/23/24 21:24 40 MG Pantoprazole Sodium 40 mg DAILY@0600 PO 03/25/24 06:00 03/25/24 06:07 40 MG Enoxaparin Sodium 40 mg DAILY SC 03/25/24 10:00 03/25/24 10:32 40 MG Sodium Chloride 1,000 ml @ 50 mls/hr Q20H IV 03/24/24 12:45 03/25/24 09:12 50 MLS/HR Ipratropium [place] 0.5 mg Q4HPRN PRN NEB 03/24/24 12:45 Albuterol 2.5 mg Q4HPRN PRN NEB 03/24/24 12:45 Ceftriaxone Sodium 50 ml @ 100 mls/hr DAILY@09 IV 03/25/24 09:00 03/25/24 10:35 100 MLS/HR objective General Appearance: alert, no distress HEENT: EOMI, PERRLA, normal external inspect of ears, no icterus, no nasal drainage Neck: no carotid bruit, no jugular venous distention (JVD), no lymphadenopathy Chest: normal thorax Respiratory: clear to auscultation, normal air movement Cardiovascular: regular rate and rhythm, no diastolic murmur, no jugular venous distention (JVD), no rub, no systolic murmur Abdominal: soft, no hepatomegaly, no mass, no splenomegaly, no tenderness Genitourinary: grossly normal external Musculoskeletal: no joint tenderness, no swelling Extremities: normal pulses, no calf tenderness, no clubbing, no cyanosis, no edema Skin: no bruising, no jaundice, no rash Neurological: alert, No focal deficit laboratory and microbiology Laboratory Tests 03/24/24 04:57 Test 03/24/24 04:57 Range/Units Serum Glucose 126 H 74-106 mg/dL Problem List 1. Sepsis likely due to pneumonia Monitor 2. Lactic acidosis Monitor 3. Community-acquired pneumonia likely ?viral ?Atypical ?Gram+/- bacteria ? UTI Monitor, WBC 5->3.8 with left shift, COVID and influenza pending, chest x-ray shows Interstitial prominence is relatively nonspecific but can be seen with edema, reactive airway changes as well as atypical / viral infection. Questionable developing infiltrate versus atelectasis/ scarring in the peripheral left lower lung field, patient given 1.5 L bolus, continued on NS at 100 mL/hour, on Zosyn 3.375 g q.8 hour and azithromycin 500 mg q.d. IV, bacteria culture pending, MRSA pending, respiratory sputum culture pending, urine culture pending, monitor vitals, BMP 4. Acute on chronic heart failure with reduced ejection fraction Monitor, echo from 2019 shows LVEF 45%, new echo pending, home medication metoprolol held d/t sepsis 5. Uncontrolled Type 2 diabetes mellitus with hyperglycemia Monitor, HbA1c 6.7%, started on mild insulin sliding scale ACHS Assessment/Plan Subjective: Patient is awake alert. Objective: Patient is having a cough today. Patient states she does not feel well. Influenza and COVID was negative. Patient's T temp is 99.2. Patient reports a bowel movement today. Patient was admitted on March 22 for sepsis due to pneumonia. Pneumonia is most likely gram-positive or gram-negative. Patient was started on Zosyn and doxycycline. Patient has acute on chronic systolic heart failure. Patient is on diuretics with Lasix. Patient has a known history of lymphoma. Plan: Continue insulin sliding scale for diabetes. Continue cough medicine as needed. Repeat chest x-ray ordered for a.m. Dietary Evaluation Review Comments: updtate and consider the current diet to 2 gNa with 50g protein restriction if renal function does not improve. Expected Outcomes/Goals: controlled DM, improved lab values, gradual weight loss. ROHIT CRAIN NP Mar 25, 2024 12:42
--- NOTE | 2024-03-25 12:44 | DVHDS2 ---
Discharge Summary Date of Admission Mar 22, 2024 at 00:46 Date of Discharge: Mar 25, 2024 Labs/Diagnostic Data: Laboratory Results Test 03/25/24 10:32 03/24/24 22:55 03/24/24 04:57 03/23/24 14:00 POC Glucose 175 mg/dl (70-106) Influenza Type A Antigen Negative (Negative) Influenza Type B Antigen Negative (Negative) SARS-CoV-2 Antigen (Rapid) Negative (NEGATIVE) White Blood Count 3.9 10^3/uL (4.4-10.8) Red Blood Count 3.51 10^6/uL (4.0-5.20) Hemoglobin 11.2 g/dL (12.2-16.2) Hematocrit 33.3 % (36.0-46.0) Mean Corpuscular Volume 94.7 fL (80.0-100.0) Mean Corpuscular Hemoglobin 32.0 pg (28.0-32.0) Mean Corpuscular Hemoglobin Concent 33.7 g/dL (32.0-36.0) Red Cell Distribution Width 13.6 % (11.8-14.3) Platelet Count 161 10^3/uL (140-450) Mean Platelet Volume 8.1 fL (6.9-10.8) Neutrophils (%) (Auto) 73.9 % (37.0-80.0) Lymphocytes (%) (Auto) 17.8 % (10.0-50.0) Monocytes (%) (Auto) 7.7 % (0.0-12.0) Eosinophils (%) (Auto) 0.1 % (0.0-7.0) Basophils (%) (Auto) 0.5 % (0.0-2.0) Neutrophils # (Auto) 2.9 10 ^3/uL (1.6-8.6) Lymphocytes # (Auto) 0.7 10 ^3/uL (0.4-5.4) Monocytes # (Auto) 0.3 10 ^3/uL (0-1.3) Eosinophils # (Auto) 0 10 ^3/uL (0-0.8) Basophils # (Auto) 0 10 ^3/uL (0-0.2) Nucleated Red Blood Cells 0.1 % Sodium Level 137 mmol/L (136-145) Potassium Level 4.0 mmol/L (3.5-5.1) Chloride Level 104 mmol/L (98-107) Carbon Dioxide Level 26 mmol/L (20-31) Anion Gap 7 (5-15) Blood Urea Nitrogen 9 mg/dL (9-23) Creatinine 0.92 mg/dL (0.550-1.02) Glomerular Filtration Rate Calc 69 mL/min (>90) BUN/Creatinine Ratio 9.8 (10.0-20.0) Serum Glucose 126 mg/dL (74-106) Calcium Level 9.1 mg/dL (8.7-10.4) Total Bilirubin 0.5 mg/dL (0.2-1.0) Aspartate Amino Transferase (AST) 20 U/L (13-40) Alanine Aminotransferase (ALT) 28 U/L (7-40) Alkaline Phosphatase 116 U/L (46-116) Total Protein 6.2 g/dL (5.7-8.2) Albumin 3.8 g/dL (3.2-4.8) HIV (1&2) Antibody Negative (Negative) Test 03/22/24 12:37 03/22/24 01:23 03/21/24 18:52 Lactic Acid Level 2.0 mmol/L (0.4-2.0) Hemoglobin A1c 6.7 % A1C (<5.7) Troponin I High Sensitivity 12 ng/L (</=34) B-Type Natriuretic Peptide 40.63 pg/mL (0-100) Thyroid Stimulating Hormone (TSH) 2.79 uIU/mL (0.55-4.78) Urine Color Yellow (Yellow) Urine Clarity Clear (Clear) Urine pH 6.5 (5.0-9.0) Urine Specific [place] 1.020 (1.001-1.035) Urine Protein Trace (Negative) Urine Ketones Negative (Negative) Urine Blood 2+ /uL (Negative) Urine Nitrite Negative (Negative) Urine Bilirubin Negative (Negative) Urine Urobilinogen Normal mg/dL (Negative) Urine Leukocyte Esterase Trace /uL (Negative) Urine RBC 22 /hpf (0 - 4) Urine WBC 2 /hpf (0 - 5) Urine Squamous Epithelial Cells Few /hpf (<5) Urine Bacteria Few /hpf (None Seen) Urine Mucus Few (None Seen) Urine Glucose Normal mg/dL (Normal) Urine Opiates Screen Neg (NEGATIVE) Urine Fentanyl Screen Neg (NEGATIVE) Urine Barbiturates Screen Neg (NEGATIVE) Urine Phencyclidine Screen Neg (NEGATIVE) Urine Amphetamines Screen Neg (NEGATIVE) Urine Benzodiazepines Screen Neg (NEGATIVE) Urine Cocaine Screen Neg (NEGATIVE) Urine Cannabinoids Screen Neg (NEGATIVE) Other Laboratory Tests 03/24/24 04:57 Brief Hx & Hospital Course: 68 year old female is who comes in with chief complaint of generalized weakness for the last 5 days. Patient was admitted on March 22, 2024 for shortness of breath. COVID and influenza swab was negative. Chest x-ray shows possible viral infection. Patient was started on IV Rocephin. Patient developed diarrhea. C. difficile was negative. Patient was sent home on azithromycin. Patient was instructed to follow-up with PCP in 1 week. Patient remained on room air and was stable respiratory parker. The patient received proper medical treatment and medications. Vital signs, Imaging and Laboratory Work was monitored. All consults recommendations were followed as provided. There were no complaints or new complaints upon discharge, all questions and concerns were answered. Patient was advised to return to the ER or call 911 if any headaches, dizziness, shortness of breath, chest pain, bleeding, fevers, or worsening of medical condition. Patient/Family was counseled about treatment plan, medications, possible side effects, patientverbalized understanding. All questions were answered to the best of my ability. The patient symptoms improved and they are okay to be DC. Condition at Discharge: Good Final Diagnosis/Problems List 1. Sepsis likely due to pneumonia 2. Lactic acidosis 3. Community-acquired pneumonia likely ?viral ?Atypical ?Gram+/- bacteria ? UTI 4. Acute on chronic heart failure with reduced ejection fraction 5. Uncontrolled Type 2 diabetes mellitus with hyperglycemia Discharge Disposition: Home Discharge Statement: "Patient was advised to return to the ER or call 911 if any headaches, dizziness, shortness of breath, chest pain, abdominal pain, bleeding, fevers, or worsening of medical condition. Patient was counseled about treatment plan, medications, possible side effects, patientverbalized understanding. All questions were answered to the best of my ability. This discharge took greater then 30 minutes in planning, reviewing documentation, counseling the patient, and discussing with other team members." ASSESSMENT ASSESSMENT Assessment ROHIT CRAIN NP Mar 25, 2024 12:44
--- NOTE | 2024-03-25 14:27 | DVHPN2 ---
Progress Note - Dictate Date Seen: Mar 25, 2024 Has the PT tested + for MRSA If YES, has PT been informed?: No Medical Necessity Reason Pt with a Central, PICC or Fol: No Subjective No new acute complaint noted at this time. He is expecting to be discharged tomorrow morning. vital signs Vital Sign Date Time Temp Pulse Resp B/P (MAP) Pulse Ox O2 Delivery O2 Flow Rate FiO2 03/25/24 12:55 98.5 66 18 95/58 (70) 95 98.5 03/25/24 10:00 Room Air* 0 21 Total Intake and Output 03/24/24 03/24/24 03/25/24 15:00 23:00 07:00 Intake Total 568 ml 1218 ml 800 ml Balance 568 ml 1218 ml 800 ml medications Current Medications Medications Dose Ordered Sig/Sadia Route Start Time Stop Time Status Last Admin Dose Admin Diagnostic Test (Pha) 1 strip ACHS 03/22/24 07:00 03/25/24 10:33 1 STRIP Insulin Human Regular ACHS SC 03/22/24 07:00 03/24/24 15:48 2 UNITS Dextrose 50 ml UD PRN IV 03/22/24 01:00 Doxycycline Monohydrate 100 mg Q12HR PO 03/22/24 15:00 03/25/24 10:33 100 MG Acetaminophen 650 mg Q6HP PO 03/23/24 12:45 03/25/24 12:06 650 MG Guaifenesin/ Codeine Phosphate 5 ml Q4HPRN PRN PO 03/23/24 12:45 Ibuprofen 400 mg Q6HP PRN PO 03/23/24 12:45 Atorvastatin Calcium 40 mg HS PO 03/23/24 22:00 03/23/24 21:24 40 MG Pantoprazole Sodium 40 mg DAILY@0600 PO 03/25/24 06:00 03/25/24 06:07 40 MG Enoxaparin Sodium 40 mg DAILY SC 03/25/24 10:00 03/25/24 10:32 40 MG Sodium Chloride 1,000 ml @ 50 mls/hr Q20H IV 03/24/24 12:45 03/25/24 09:12 50 MLS/HR Ipratropium [place] 0.5 mg Q4HPRN PRN NEB 03/24/24 12:45 Albuterol 2.5 mg Q4HPRN PRN NEB 03/24/24 12:45 Ceftriaxone Sodium 50 ml @ 100 mls/hr DAILY@09 IV 03/25/24 09:00 03/25/24 10:35 100 MLS/HR objective Constitutional: Patient alert and oriented to time, place and person and does not appear to be in any acute distress. Gen - no pallor, no icterus, no cyanosis, no clubbing, no LAD, no edema . Skin - Patients skin is warm and dry. HEENT - normocephalic, atraumatic, moist mucous membranes. Neck - full ROM, no LAD, no JVD Pulmonary - B/L equal breath sounds. no crackles , no wheezing cardiovascular - normal S1,S2 heard. no murmurs heard. peripheral pulses normal radial 2+, pedal 2+. GI - soft abdomen without tenderness to palpation. no hepatosplenomegaly. Bowel sounds normoactive Neurological - Bilateral upper extremity strength 5/5, bilateral lower extremity strength 5/5, no facial droop, normal speech, no tremor, no sensory deficits. laboratory and microbiology Laboratory Tests 03/24/24 04:57 Test 03/24/24 04:57 Range/Units Serum Glucose 126 H 74-106 mg/dL Assessment/Plan Patient is a 68-year-old female presents to the hospital with: Sepsis likely due to pneumonia Pneumonia likely gram negative Lactic acidosis ? UTI ? Acute on chronic heart failure with reduced ejection fraction Uncontrolled Type 2 diabetes mellitus with hyperglycemia Recommendations: Antibiotic status since admission Zosyn 3.375 g q.8 hour [Started 03/21 - Ongoing] Doxycycline PO [Started 03/22 - Ongoing] reviewed cultures/ imaging personally: most of the cultures are negative dc Zosyn, taper to IV Ceftriaxone and continue Doxycycline: total for 5 - days total: stop date 03/27 03/22, MRSA is negative 03/22, COVID and influenza: Negative 03/23, Respiratory sputum culture showed Normal Oropharyngeal [place] 03/23, Blood culture preliminary showed no growth Chest x-ray showed: Interstitial prominence is relatively nonspecific but can be seen with edema, reactive airway changes as well as atypical / viral infection. Questionable developing infiltrate versus atelectasis/ scarring in the peripheral left lower lung field. Thank you for consult. Dietary Evaluation Review Comments: updtate and consider the current diet to 2 gNa with 50g protein restriction if renal function does not improve. Expected Outcomes/Goals: controlled DM, improved lab values, gradual weight loss. MARIA D ARAGON MD Mar 25, 2024 14:27
--- NOTE | 2024-03-25 21:47 | DVHPN2 ---
Progress Note - Dictate Date Seen: Mar 25, 2024 Has the PT tested + for MRSA If YES, has PT been informed?: No Medical Necessity Reason Pt with a Central, PICC or Fol: No Subjective Patient seen and examined at bedside. Breathing comfortably on room air. Overnight events reviewed. vital signs Vital Sign Date Time Temp Pulse Resp B/P (MAP) Pulse Ox O2 Delivery O2 Flow Rate FiO2 03/25/24 20:50 94 Room Air 0.0 03/25/24 20:50 21 03/25/24 20:00 18 03/25/24 18:36 98.8 03/25/24 17:00 70 95/53 (67) Total Intake and Output 03/24/24 03/24/24 03/25/24 15:00 23:00 07:00 Intake Total 568 ml 1218 ml 800 ml Balance 568 ml 1218 ml 800 ml medications Current Medications Medications Dose Ordered Sig/Sadia Route Start Time Stop Time Status Last Admin Dose Admin Diagnostic Test (Pha) 1 strip ACHS 03/22/24 07:00 03/25/24 17:00 1 STRIP Insulin Human Regular ACHS SC 03/22/24 07:00 03/24/24 15:48 2 UNITS Dextrose 50 ml UD PRN IV 03/22/24 01:00 Doxycycline Monohydrate 100 mg Q12HR PO 03/22/24 15:00 03/25/24 10:33 100 MG Acetaminophen 650 mg Q6HP PO 03/23/24 12:45 03/25/24 17:36 650 MG Guaifenesin/ Codeine Phosphate 5 ml Q4HPRN PRN PO 03/23/24 12:45 Ibuprofen 400 mg Q6HP PRN PO 03/23/24 12:45 Atorvastatin Calcium 40 mg HS PO 03/23/24 22:00 03/23/24 21:24 40 MG Pantoprazole Sodium 40 mg DAILY@0600 PO 03/25/24 06:00 03/25/24 06:07 40 MG Enoxaparin Sodium 40 mg DAILY SC 03/25/24 10:00 03/25/24 10:32 40 MG Sodium Chloride 1,000 ml @ 50 mls/hr Q20H IV 03/24/24 12:45 03/25/24 09:12 50 MLS/HR Ipratropium [place] 0.5 mg Q4HPRN PRN NEB 03/24/24 12:45 Albuterol 2.5 mg Q4HPRN PRN NEB 03/24/24 12:45 Ceftriaxone Sodium 50 ml @ 100 mls/hr DAILY@09 IV 03/25/24 09:00 03/25/24 10:35 100 MLS/HR objective Gen.: Patient lying in bed in no apparent distress. Breathing on room air. Head: Normocephalic, atraumatic. Eyes: EOMI/PERRLA. Ears: Normal hearing. Normal anatomy. Neck/trachea: Trachea midline, supple. Nose: Normal external anatomy. Mouth: Moist mucous membranes. Chest: Decreased air entry bilaterally. No wheezing or rhonchi. Cardiovascular: Positive S1, positive S2. Regular rate and rhythm. Abdomen: Positive bowel sounds in all 4 quadrants. Soft, non-tender, non- distended. : Deferred. Rectal: Deferred. Skin: Warm, dry. Intact. Extremities: 2+ radial pulses bilaterally. No lower extremity edema. Neuro: Awake, alert, oriented x3. No gross motor or sensory deficits. Cranial nerves II through XII intact. Gait not assessed. laboratory and microbiology Laboratory Tests 03/24/24 04:57 Test 03/24/24 04:57 Range/Units Serum Glucose 126 H 74-106 mg/dL Assessment/Plan Impression: Sepsis 2/2 pneumonia Pneumonia, likely gram negative Lactic acidosis Acute on chronic heart failure w/ reduced ejection fraction Atelectasis Obesity Events: Remains on room air. Supplemental oxygen PRN Patient is feeling better. CXR reviewed, demonstrates no acute opacities Continue antibiotics Incentive spirometry Antitussive PRN dry cough ID recommendations appreciated Disposition per hospitalist. Labs and imaging reviewed. Rest of plan as noted below. Plan: Supplemental oxygen PRN Titrate to keep O2 sats above 92%. Continue antibiotics Incentive spirometry C. diff negative Blood cultures - no growth for 48 hours Sputum cultures show normal oropharyngeal aracelis. Antitussives for cough. ID recommendations appreciated. Monitor renal function. Monitor electrolytes. Supplement as necessary. Monitor ins and outs. Accu-Cheks, ISS PRN. Diet and lifestyle modifications for weight reduction Obesity - complicates all care GI, DVT prophylaxis. Prognosis: Poor given patient's multiple co-morbidities. Rest of plan per hospitalist and other consultants. Thank you, Dr. Nye, for allowing me to participate in this patient's care. Further recommendations will depend on the patient's clinical course. Please do not hesitate to contact me if you have any questions or concerns. This medical document was created using an electronic medical record system with [employer] dictation system. Although these documentations are being carefully reviewed, there may still be some phonetic and typographical changes. The errors are purely typographical, due to imperfection on the software program, and do not reflect any compromise in the patient's medical care. Dietary Evaluation Review Comments: updtate and consider the current diet to 2 gNa with 50g protein restriction if renal function does not improve. Expected Outcomes/Goals: controlled DM, improved lab values, gradual weight loss. Plan discussed with: Patient, Other (LEOBARDO Hughes) MARY MANTILLA MD Mar 25, 2024 21:47
[2024-03-26 01:19] VITALS: BP 98/57; PULSE 72; RESP 17; TEMP 98.7; O2SAT 95
[2024-03-26 05:25] VITALS: BP 99/48; PULSE 79; RESP 16; TEMP 98.5; O2SAT 94
[2024-03-26 08:00] VITALS: O2SAT 98
[2024-03-26 08:57] VITALS: BP 91/51; PULSE 67; RESP 14; TEMP 98.4; O2SAT 93
--- NOTE | 2024-03-26 10:15 | DVHDS2 ---
Discharge Summary Date of Admission Mar 22, 2024 at 00:46 Date of Discharge: Mar 26, 2024 Labs/Diagnostic Data: Laboratory Results Test 03/26/24 06:02 03/24/24 22:55 03/24/24 04:57 03/23/24 14:00 POC Glucose 121 mg/dl (70-106) Influenza Type A Antigen Negative (Negative) Influenza Type B Antigen Negative (Negative) SARS-CoV-2 Antigen (Rapid) Negative (NEGATIVE) White Blood Count 3.9 10^3/uL (4.4-10.8) Red Blood Count 3.51 10^6/uL (4.0-5.20) Hemoglobin 11.2 g/dL (12.2-16.2) Hematocrit 33.3 % (36.0-46.0) Mean Corpuscular Volume 94.7 fL (80.0-100.0) Mean Corpuscular Hemoglobin 32.0 pg (28.0-32.0) Mean Corpuscular Hemoglobin Concent 33.7 g/dL (32.0-36.0) Red Cell Distribution Width 13.6 % (11.8-14.3) Platelet Count 161 10^3/uL (140-450) Mean Platelet Volume 8.1 fL (6.9-10.8) Neutrophils (%) (Auto) 73.9 % (37.0-80.0) Lymphocytes (%) (Auto) 17.8 % (10.0-50.0) Monocytes (%) (Auto) 7.7 % (0.0-12.0) Eosinophils (%) (Auto) 0.1 % (0.0-7.0) Basophils (%) (Auto) 0.5 % (0.0-2.0) Neutrophils # (Auto) 2.9 10 ^3/uL (1.6-8.6) Lymphocytes # (Auto) 0.7 10 ^3/uL (0.4-5.4) Monocytes # (Auto) 0.3 10 ^3/uL (0-1.3) Eosinophils # (Auto) 0 10 ^3/uL (0-0.8) Basophils # (Auto) 0 10 ^3/uL (0-0.2) Nucleated Red Blood Cells 0.1 % Sodium Level 137 mmol/L (136-145) Potassium Level 4.0 mmol/L (3.5-5.1) Chloride Level 104 mmol/L (98-107) Carbon Dioxide Level 26 mmol/L (20-31) Anion Gap 7 (5-15) Blood Urea Nitrogen 9 mg/dL (9-23) Creatinine 0.92 mg/dL (0.550-1.02) Glomerular Filtration Rate Calc 69 mL/min (>90) BUN/Creatinine Ratio 9.8 (10.0-20.0) Serum Glucose 126 mg/dL (74-106) Calcium Level 9.1 mg/dL (8.7-10.4) Total Bilirubin 0.5 mg/dL (0.2-1.0) Aspartate Amino Transferase (AST) 20 U/L (13-40) Alanine Aminotransferase (ALT) 28 U/L (7-40) Alkaline Phosphatase 116 U/L (46-116) Total Protein 6.2 g/dL (5.7-8.2) Albumin 3.8 g/dL (3.2-4.8) HIV (1&2) Antibody Negative (Negative) Test 03/22/24 12:37 03/22/24 01:23 03/21/24 18:52 Lactic Acid Level 2.0 mmol/L (0.4-2.0) Hemoglobin A1c 6.7 % A1C (<5.7) Troponin I High Sensitivity 12 ng/L (</=34) B-Type Natriuretic Peptide 40.63 pg/mL (0-100) Thyroid Stimulating Hormone (TSH) 2.79 uIU/mL (0.55-4.78) Urine Color Yellow (Yellow) Urine Clarity Clear (Clear) Urine pH 6.5 (5.0-9.0) Urine Specific [place] 1.020 (1.001-1.035) Urine Protein Trace (Negative) Urine Ketones Negative (Negative) Urine Blood 2+ /uL (Negative) Urine Nitrite Negative (Negative) Urine Bilirubin Negative (Negative) Urine Urobilinogen Normal mg/dL (Negative) Urine Leukocyte Esterase Trace /uL (Negative) Urine RBC 22 /hpf (0 - 4) Urine WBC 2 /hpf (0 - 5) Urine Squamous Epithelial Cells Few /hpf (<5) Urine Bacteria Few /hpf (None Seen) Urine Mucus Few (None Seen) Urine Glucose Normal mg/dL (Normal) Urine Opiates Screen Neg (NEGATIVE) Urine Fentanyl Screen Neg (NEGATIVE) Urine Barbiturates Screen Neg (NEGATIVE) Urine Phencyclidine Screen Neg (NEGATIVE) Urine Amphetamines Screen Neg (NEGATIVE) Urine Benzodiazepines Screen Neg (NEGATIVE) Urine Cocaine Screen Neg (NEGATIVE) Urine Cannabinoids Screen Neg (NEGATIVE) Other Laboratory Tests 03/24/24 04:57 Brief Hx & Hospital Course: 68 year old female is who comes in with chief complaint of generalized weakness for the last 5 days. Patient was admitted on March 22, 2024 for shortness of breath. COVID and influenza swab was negative. Chest x-ray shows possible viral infection. Patient was started on IV Rocephin. Patient developed diarrhea. C. difficile was negative. Patient was sent home on azithromycin. Patient was instructed to follow-up with PCP in 1 week. Patient remained on room air and was stable respiratory parker. The patient received proper medical treatment and medications. Vital signs, Imaging and Laboratory Work was monitored. All consults recommendations were followed as provided. There were no complaints or new complaints upon discharge, all questions and concerns were answered. Patient was advised to return to the ER or call 911 if any headaches, dizziness, shortness of breath, chest pain, bleeding, fevers, or worsening of medical condition. Patient/Family was counseled about treatment plan, medications, possible side effects, patientverbalized understanding. All questions were answered to the best of my ability. The patient symptoms improved and they are okay to be DC. Condition at Discharge: Good Final Diagnosis/Problems List 1. Sepsis likely due to pneumonia 2. Lactic acidosis 3. Community-acquired pneumonia likely ?viral ?Atypical ?Gram+/- bacteria ? UTI 4. Acute on chronic heart failure with reduced ejection fraction 5. Uncontrolled Type 2 diabetes mellitus with hyperglycemia Discharge Disposition: Home Discharge Statement: "Patient was advised to return to the ER or call 911 if any headaches, dizziness, shortness of breath, chest pain, abdominal pain, bleeding, fevers, or worsening of medical condition. Patient was counseled about treatment plan, medications, possible side effects, patientverbalized understanding. All questions were answered to the best of my ability. This discharge took greater then 30 minutes in planning, reviewing documentation, counseling the patient, and discussing with other team members." ASSESSMENT ASSESSMENT Hospital Course 68 year old female is who comes in with chief complaint of generalized weakness for the last 5 days. Patient was admitted on March 22, 2024 for shortness of breath. COVID and influenza swab was negative. Chest x-ray shows possible viral infection. Patient was started on IV Rocephin. Patient developed diarrhea. C. difficile was negative. Patient was sent home on azithromycin. Patient was instructed to follow-up with PCP in 1 week. Patient remained on room air and was stable respiratory parker. The patient received proper medical treatment and medications. Vital signs, Imaging and Laboratory Work was monitored. All consults recommendations were followed as provided. There were no complaints or new complaints upon discharge, all questions and concerns were answered. Patient was advised to return to the ER or call 911 if any headaches, dizziness, shortness of breath, chest pain, bleeding, fevers, or worsening of medical condition. Patient/Family was counseled about treatment plan, medications, possible side effects, patientverbalized understanding. All questions were answered to the best of my ability. The patient symptoms improved and they are okay to be DC. Assessment 1. Sepsis likely due to pneumonia2. Lactic acidosis3. Community-acquired pneumonia likely ?viral ?Atypical ?Gram+/- bacteria? UTI4. Acute on chronic heart failure with reduced ejection fraction5. Uncontrolled Type 2 diabetes mellitus with hyperglycemia ROHIT CRAIN NP Mar 26, 2024 10:15
[2024-03-26 10:30] VITALS: O2SAT 94
--- NOTE | 2024-03-26 19:07 | DVHPN2 ---
Progress Note - Dictate Date Seen: Mar 25, 2024 Has the PT tested + for MRSA If YES, has PT been informed?: No Medical Necessity Reason Pt with a Central, PICC or Fol: No vital signs Vital Sign Date Time Temp Pulse Resp B/P (MAP) Pulse Ox O2 Delivery O2 Flow Rate FiO2 03/26/24 10:30 94 Room Air 0.0 03/26/24 10:30 21 03/26/24 08:57 98.4 67 14 91/51 (64) 98.4 Total Intake and Output 03/25/24 03/25/24 03/26/24 15:00 23:00 07:00 Intake Total 240 ml 1150 ml 200 ml Balance 240 ml 1150 ml 200 ml objective General Appearance: alert, no distress HEENT: EOMI, PERRLA, normal external inspect of ears, no icterus, no nasal drainage Neck: no carotid bruit, no jugular venous distention (JVD), no lymphadenopathy Chest: normal thorax Respiratory: clear to auscultation, normal air movement Cardiovascular: regular rate and rhythm, no diastolic murmur, no jugular venous distention (JVD), no rub, no systolic murmur Abdominal: soft, no hepatomegaly, no mass, no splenomegaly, no tenderness Genitourinary: grossly normal external Musculoskeletal: no joint tenderness, no swelling Extremities: normal pulses, no calf tenderness, no clubbing, no cyanosis, no edema Skin: no bruising, no jaundice, no rash Neurological: alert, No focal deficit laboratory and microbiology Laboratory Tests 03/24/24 04:57 Test 03/24/24 04:57 Range/Units Serum Glucose 126 H 74-106 mg/dL Problem List 1. Sepsis likely due to pneumonia Monitor 2. Lactic acidosis Monitor 3. Community-acquired pneumonia likely ?viral ?Atypical ?Gram+/- bacteria ? UTI Monitor, WBC 5->3.8 with left shift, COVID and influenza pending, chest x-ray shows Interstitial prominence is relatively nonspecific but can be seen with edema, reactive airway changes as well as atypical / viral infection. Questionable developing infiltrate versus atelectasis/ scarring in the peripheral left lower lung field, patient given 1.5 L bolus, continued on NS at 100 mL/hour, on Zosyn 3.375 g q.8 hour and azithromycin 500 mg q.d. IV, bacteria culture pending, MRSA pending, respiratory sputum culture pending, urine culture pending, monitor vitals, BMP 4. Acute on chronic heart failure with reduced ejection fraction Monitor, echo from 2019 shows LVEF 45%, new echo pending, home medication metoprolol held d/t sepsis 5. Uncontrolled Type 2 diabetes mellitus with hyperglycemia Monitor, HbA1c 6.7%, started on mild insulin sliding scale ACHS Assessment/Plan Subjective: Patient is awake and alert. Objective: For some reason discharge was held today. Patient is stable. Discharge will be rescheduled for a.m. Plan: Continue current treatment. DC planning for tomorrow. Dietary Evaluation Review Comments: updtate and consider the current diet to 2 gNa with 50g protein restriction if renal function does not improve. Expected Outcomes/Goals: controlled DM, improved lab values, gradual weight loss. Plan discussed with: Patient, Other ROHIT CRAIN NP Mar 26, 2024 19:07
--- NOTE | 2024-03-26 22:16 | DVHPN2 ---
Progress Note - Dictate Date Seen: Mar 26, 2024 Has the PT tested + for MRSA If YES, has PT been informed?: No Medical Necessity Reason Pt with a Central, PICC or Fol: No Subjective Patient seen and examined at bedside. Breathing comfortably on room air. Overnight events reviewed. vital signs Vital Sign Date Time Temp Pulse Resp B/P (MAP) Pulse Ox O2 Delivery O2 Flow Rate FiO2 03/26/24 10:30 94 Room Air 0.0 03/26/24 10:30 21 03/26/24 08:57 98.4 67 14 91/51 (64) 98.4 Total Intake and Output 03/25/24 03/25/24 03/26/24 15:00 23:00 07:00 Intake Total 240 ml 1150 ml 200 ml Balance 240 ml 1150 ml 200 ml objective Gen.: Patient lying in bed in no apparent distress. Breathing on room air. Head: Normocephalic, atraumatic. Eyes: EOMI/PERRLA. Ears: Normal hearing. Normal anatomy. Neck/trachea: Trachea midline, supple. Nose: Normal external anatomy. Mouth: Moist mucous membranes. Chest: Decreased air entry bilaterally. No wheezing or rhonchi. Cardiovascular: Positive S1, positive S2. Regular rate and rhythm. Abdomen: Positive bowel sounds in all 4 quadrants. Soft, non-tender, non- distended. : Deferred. Rectal: Deferred. Skin: Warm, dry. Intact. Extremities: 2+ radial pulses bilaterally. No lower extremity edema. Neuro: Awake, alert, oriented x3. No gross motor or sensory deficits. Cranial nerves II through XII intact. Gait not assessed. laboratory and microbiology Laboratory Tests 03/24/24 04:57 Test 03/24/24 04:57 Range/Units Serum Glucose 126 H 74-106 mg/dL Assessment/Plan Impression: Sepsis 2/2 pneumonia Pneumonia, likely gram negative Lactic acidosis Acute on chronic heart failure w/ reduced ejection fraction Atelectasis Obesity Events: Remains on room air. Supplemental oxygen PRN Obtain followup CXR in 6-8 weeks Continue antibiotics Incentive spirometry Antitussive PRN cough Patient is stable for discharge from the pulmonary standpoint. Disposition per hospitalist. Labs and imaging reviewed. Rest of plan as noted below. Plan: Supplemental oxygen PRN Titrate to keep O2 sats above 92%. Continue antibiotics Incentive spirometry C. diff negative Blood cultures - no growth for 48 hours Sputum cultures show normal oropharyngeal aracelis. Antitussives for cough. ID recommendations appreciated. Monitor renal function. Monitor electrolytes. Supplement as necessary. Monitor ins and outs. Accu-Cheks, ISS PRN. Diet and lifestyle modifications for weight reduction Obesity - complicates all care GI, DVT prophylaxis. Prognosis: Poor given patient's multiple co-morbidities. Rest of plan per hospitalist and other consultants. Thank you, Dr. Nye, for allowing me to participate in this patient's care. Further recommendations will depend on the patient's clinical course. Please do not hesitate to contact me if you have any questions or concerns. This medical document was created using an electronic medical record system with [employer] dictation system. Although these documentations are being carefully reviewed, there may still be some phonetic and typographical changes. The errors are purely typographical, due to imperfection on the software program, and do not reflect any compromise in the patient's medical care. Dietary Evaluation Review Comments: updtate and consider the current diet to 2 gNa with 50g protein restriction if renal function does not improve. Expected Outcomes/Goals: controlled DM, improved lab values, gradual weight loss. Plan discussed with: Patient, Other (LEOBARDO Diaz) MARY MANTILLA MD Mar 26, 2024 22:16
== END 2024-03-26 13:00 | disposition home or self-care (01) | DRG 720 ==
LOC: ER 17:54 → TELE 03-22 00:46 → TELE-CENTR 03-22 02:51 → CENTRAL 03-26 07:43
PROVIDERS: ATTEND Nurse Practitioner
DX: A41.50 Gram-negative sepsis, unspecified (principal); I50.23 Acute on chronic systolic (congestive) heart failure; J15.69 Pneumonia due to other Gram-negative bacteria; E87.20 Acidosis, unspecified; I11.0 Hypertensive heart disease with heart failure; Z20.822 Contact with and (suspected) exposure to COVID-19; E66.9 Obesity, unspecified; E78.5 Hyperlipidemia, unspecified; R65.20 Severe sepsis without septic shock; J98.11 Atelectasis; E11.65 Type 2 diabetes mellitus with hyperglycemia; N39.0 Urinary tract infection, site not specified; Z82.49 Family history of ischemic heart disease and other diseases of the circulatory system; Z83.3 Family history of diabetes mellitus; Z85.72 Personal history of non-Hodgkin lymphomas; Z79.899 Other long term (current) drug therapy; Z79.84 Long term (current) use of oral hypoglycemic drugs; Z68.33 Body mass index [BMI] 33.0-33.9, adult
CPT/HCPCS: 36415; 71045; 74176; 80048; 80053; 80307; 81001; 82962; 83036; 83605; 83880; 84443; 84484; 85025; 86703; 87040; 87070; 87081; 87086; 87205; 87426; 87493; 87804; 93306; 97110; 97116; 97163; 97530; 99291; G0378; J0696; J1815; J2543; P9047